=== PATIENT | female | born 1990 | race Caucasian/White ===

== ENCOUNTER 2017-03-31 21:07 | Emergency (ER) | payer SELFPAY ==
[2017-03-31 21:44] LABS: APPEARANCE,URINE SLIGHTLY-CLOUDY; BILIRUBIN,URINE NEGATIVE (NEGATIVE); GLUCOSE, URINE NEGATIVE (NEGATIVE); KETONES,URINE NEGATIVE (NEGATIVE); LEUKOCYTE ESTERASE,URINE NEGATIVE (NEGATIVE); NITRITE,URINE NEGATIVE (NEGATIVE); PROTEIN,URINE NEGATIVE (NEGATIVE); URINE SPECIFIC GRAVITY 1.024; UROBILINOGEN,URINE NEGATIVE mg/dL (<2.0)
--- NOTE | 2017-03-31 22:36 | ER Document Report ---
ED GI/ - General Chief Complaint: Urinary Problem Stated Complaint: ABDOMINAL PAIN Time Seen by Provider: 03/31/17 22:16 Notes: Patient is a 26-year-old female who comes emergency department for chief complaint of lower abdominal pain. Symptoms have been going on almost a week, they are worsening, she reports in addition to the pain that she has some pain in her mid lower back, not specifically worse on one side. She denies fever, she reports some nausea, she denies vomiting. She also reports some urinary hesitancy and occasional discomfort with urination. She reports a positive home test. She has irregular menstrual cycles. She denies hematuria, she denies history of kidney stone. Past medical history of pituitary adenoma, depression, chronic lower back pain, ectopic . TRAVEL OUTSIDE OF THE [place] IN LAST 30 DAYS: No - Related Data Allergies/Adverse Reactions: codeine Allergy (Verified 03/31/17 22:20) hydrocodone Allergy (Verified 03/31/17 22:20) hydromorphone [From Dilaudid] Allergy (Verified 03/31/17 22:20) morphine Allergy (Verified 03/31/17 22:20) oxycodone Allergy (Verified 03/31/17 22:20) Past Medical History - General Information source: Patient - Social History Smoking Status: Never Smoker Chew tobacco use (# tins/day): No Frequency of alcohol use: None Drug Abuse: None Lives with: Family Family History: Reviewed & Not Pertinent Patient has suicidal ideation: No Patient has homicidal ideation: No Endocrine Medical History: Reports: Other - Pituitary adenoma Renal/ Medical History: Denies: Hx Peritoneal Dialysis Psychiatric Medical History: Reports: Hx Depression - Immunizations Hx Diphtheria, Pertussis, Tetanus Vaccination: Yes Review of Systems - Review of Systems Constitutional: No symptoms reported EENT: No symptoms reported Cardiovascular: No symptoms reported Respiratory: No symptoms reported Gastrointestinal: See HPI Genitourinary: See HPI Female Genitourinary: See HPI Musculoskeletal: No symptoms reported Skin: No symptoms reported Hematologic/Lymphatic: No symptoms reported Neurological/Psychological: No symptoms reported Physical Exam - Vital signs Vitals: Temp Pulse Resp BP Pulse Ox 98.2 F 85 16 128/88 H 98 03/31/17 21:13 03/31/17 21:13 03/31/17 21:13 03/31/17 21:13 03/31/17 21:13 Interpretation: Normal - General General appearance: Appears well In distress: None - HEENT Head: Normocephalic, Atraumatic Eyes: Normal Conjunctiva: Normal Extraocular movements intact: Yes Eyelashes: Normal Pupils: PERRL Mouth/Lips: Normal Mucous membranes: Normal Pharynx: Normal Neck: Normal - Respiratory Respiratory status: No respiratory distress Chest status: Nontender Breath sounds: Normal Chest palpation: Normal - Cardiovascular Rhythm: Regular Heart sounds: Normal auscultation Murmur: No - Abdominal Inspection: Normal Distension: No distension Bowel sounds: Normal Tenderness: Nontender. No: Tender, Guarding Organomegaly: No organomegaly - Genitourinary External exam: Normal Speculum exam: Cervix closed, Vaginal discharge - Moderately large amount of vaginal discharge, whitish in color, there is erythema of the cervix but no lesions, no bleeding, no other abnormality noted - Back Back: Normal, Nontender. No: Tender, CVA tenderness - Extremities General upper extremity: Normal inspection, Nontender, Normal color, Normal ROM , Normal temperature General lower extremity: Normal inspection, Nontender, Normal color, Normal ROM , Normal temperature, Normal weight bearing. No: Nadira's sign - Neurological Neuro grossly intact: Yes Cognition: Normal Orientation: AAOx4 [place] Coma Scale Eye Opening: Spontaneous [place] Coma Scale Verbal: Oriented [place] Coma Scale Motor: Obeys Commands [place] Coma Scale Total: 15 Speech: Normal Motor strength normal: LUE, RUE, LLE, RLE Sensory: Normal - Psychological Associated symptoms: Normal affect, Normal mood - Skin Skin Temperature: Warm Skin Moisture: Dry Skin Color: Normal Course - Re-evaluation Re-evalutation: Patient's abdomen is actually very unremarkable, no flank tenderness noted on my exam, she is well-appearing, alert, her vital signs show no concerning abnormalities. Reviewed and shows no leukocytosis, chemistry unremarkable, urinalysis unremarkable. test is negative. Patient only has some white blood cells on wet mount, however on evaluation she had a moderately large amount of discharge and what appears to be some cervicitis. Bacterial vaginosis on wet mount. I discussed workup with patient. After discussion patient will be treated/covered for pelvic infection based on her exam and the white blood cells with no other indication of source, discussed primary care follow-up, discussed return precautions, patient states satisfaction and agreement - Vital Signs Vital signs: Temp Pulse Resp BP Pulse Ox 97.3 F 80 18 114/80 98 04/01/17 01:32 04/01/17 01:32 03/31/17 22:22 04/01/17 01:32 04/01/17 01:32 - Laboratory Result Diagrams: 03/31/17 23:56 03/31/17 22:49 Laboratory results interpreted by me: 03/31/17 23:56 Eosinophils % 6.8 H Absolute Eosinophils 0.7 H Discharge - Discharge Clinical Impression: Lower abdominal pain Condition: Stable Disposition: HOME, SELF-CARE Additional Instructions: Your workup indicates a pelvic infection, but no other abnormalities are noted. You have been treated for this tonight. Your urine is clean, your test is negative. Follow up with Primary Care. Return to the ED for concerning worsening symptoms - fever, severe pain, vomiting, etc.
[2017-03-31] MEDS ORDERED: DIPHENHYDRAMINE HCL 25 MG CAPSULE PO ONE (22:48)
[2017-03-31] MEDS ORDERED: ONDANSETRON 4 MG TAB.RAPDIS PO ONE (22:48)
[2017-03-31] MEDS ORDERED: HYDROCODONE/ACETAMINOPHEN 5-325 MG TABLET PO ONE (22:48)
[2017-03-31 23:10] LABS: ALANINE AMINOTRANSFERASE 42 U/L (9-52); ALBUMIN 4.2 g/dL (3.5-5.0); ALKALINE PHOSPHATASE 61 U/L (38-126); ANION GAP 13 (5-19); ASPARTATE AMINO TRANSFERASE 23 U/L (14-36); BILIRUBIN,DIRECT 0.3 mg/dL (0.0-0.4); BILIRUBIN,TOTAL 0.3 mg/dL (0.2-1.3); BLOOD UREA NITROGEN 15 mg/dL (7-20); CARBON DIOXIDE 24 mmol/L (22-30); CHLORIDE 106 mmol/L (98-107); CREATININE RESULT 0.77 mg/dL (0.52-1.25); GLUCOSE 101 mg/dL (75-110); POTASSIUM 4.2 mmol/L (3.6-5.0); SODIUM 142.6 mmol/L (137-145); TOTAL PROTEIN 7.6 g/dL (6.3-8.2)
[2017-04-01 00:04] LABS: ABSOLUTE BASOPHILS # (AUTO) 0.1 10^3/uL (0.0-0.2); ABSOLUTE EOSINOPHILS # (AUTO) 0.7 10^3/uL (0.0-0.6); ABSOLUTE LYMPHOCYTES (AUTO) 3.4 10^3/uL (0.5-4.7); ABSOLUTE MONOCYTES (AUTO) 0.7 10^3/uL (0.1-1.4); ABSOLUTE NEUT (AUTO) 5.3 10^3/uL (1.7-8.2); BASOPHILS % (AUTO) 0.9 % (0-2); EOSINOPHILS % (AUTO) 6.8 % (0-6); HEMATOCRIT 40.9 % (36.0-47.0); HEMOGLOBIN 13.5 g/dL (12.0-15.5); HGB HCT DIFFERENCE -0.4; LYMPHOCYTES % (AUTO) 33.6 % (13-45); MEAN CORPUSCULAR HEMOGLOBIN 27.8 pg (27.0-33.4); MEAN CORPUSCULAR HGB CONC 33.1 g/dL (32.0-36.0); MEAN CORPUSCULAR VOLUME 84 fl (80-97); MONOCYTES % (AUTO) 6.8 % (3-13); RED BLOOD COUNT 4.87 10^6/uL (3.72-5.28); RED CELL DISTRIBUTION WIDTH 13.4 % (11.5-14.0); SEGMENTED NEUTROPHILS % (AUTO) 51.9 % (42-78); WHITE BLOOD COUNT 10.2 10^3/uL (4.0-10.5)
[2017-04-01] MEDS ORDERED: AZITHROMYCIN 250 MG TABLET PO ONE (00:38)
[2017-04-01] MEDS ORDERED: CEFTRIAXONE INJ 250 MG VIAL IM ONE (00:39)
[2017-04-01] MEDS ORDERED: LIDOCAINE 1% INJ-PF (10 MG/ML) 30 ML SDV INJ ONE (00:39)
[2017-04-01 01:34] VITALS: BP 114/80
[2017-04-01 01:49] LABS: CHLAM PCR NOT DETECTED (NOT DETECT)
== END 2017-04-01 01:33 | disposition home or self-care (01) ==
LOC: ER 21:07
DX: R10.30 Lower abdominal pain, unspecified (principal); M54.5 Low back pain; Z88.6 Allergy status to analgesic agent; Z32.02 Encounter for pregnancy test, result negative
CPT/HCPCS: 99284; 96372; 36415; 87210; 85025; 81025; 80053; 81001; 87491; 87591; S0119; J3490; J0696

== ENCOUNTER 2017-04-07 10:42 | Emergency (ER) | payer SELFPAY ==
--- NOTE | 2017-04-07 11:27 | ER Document Report ---
ED Medical Screen (RME) - General Chief Complaint: Abdominal Pain Stated Complaint: ABDOMINAL PAIN/PAINFUL URINATION Time Seen by Provider: 04/07/17 11:24 Mode of Arrival: Wheelchair Information source: Patient Notes: This is a 26-year-old female presents to the emergency room with pelvic pain, whitish vaginal discharge. Patient states she was treated for a pelvic infection with ceftriaxone and azithromycin on March 31. She states she presents to the emergency room with worsening pain in the pelvic area. Her last normal menstrual period was January 31. She does have a history of an ectopic. Her medicines include Effexor, gabapentin (for chronic neck and low back pain) and the neuva ring. Past medical history: Spina bifida possible prior surgeries TRAVEL OUTSIDE OF THE [place] IN LAST 30 DAYS: No - Related Data Allergies/Adverse Reactions: codeine Allergy (Verified 04/07/17 10:47) hydrocodone Allergy (Verified 04/07/17 10:47) hydromorphone [From Dilaudid] Allergy (Verified 04/07/17 10:47) morphine Allergy (Verified 04/07/17 10:47) oxycodone Allergy (Verified 04/07/17 10:47) Past Medical History Renal/ Medical History: Denies: Hx Peritoneal Dialysis Psychiatric Medical History: Reports: Hx Depression - Immunizations Hx Diphtheria, Pertussis, Tetanus Vaccination: Yes Physical Exam - Vital signs Vitals: Temp Pulse Resp BP Pulse Ox 98.4 F 97 16 90/64 L 98 04/07/17 10:47 04/07/17 10:47 04/07/17 10:47 04/07/17 10:47 04/07/17 10:47 Course - Vital Signs Vital signs: Temp Pulse Resp BP Pulse Ox 98.4 F 97 16 90/64 L 98 04/07/17 10:47 04/07/17 10:47 04/07/17 10:47 04/07/17 10:47 04/07/17 10:47
[2017-04-07 12:01] LABS: APPEARANCE,URINE CLOUDY; BILIRUBIN,URINE NEGATIVE (NEGATIVE); GLUCOSE, URINE NEGATIVE (NEGATIVE); KETONES,URINE NEGATIVE (NEGATIVE); LEUKOCYTE ESTERASE,URINE SMALL (NEGATIVE); NITRITE,URINE NEGATIVE (NEGATIVE); PROTEIN,URINE NEGATIVE (NEGATIVE); URINE SPECIFIC GRAVITY 1.018; UROBILINOGEN,URINE NEGATIVE mg/dL (<2.0)
[2017-04-07] MEDS ORDERED: DIPHENHYDRAMINE HCL 50 MG/ML VIAL IV ONE (12:01)
[2017-04-07] MEDS ORDERED: FENTANYL CITRATE INJ/PF 100 MCG/2 ML AMPUL IV ONE (12:02)
--- NOTE | 2017-04-07 12:02 | ER Document Report ---
ED General - General Chief Complaint: Abdominal Pain Stated Complaint: ABDOMINAL PAIN/PAINFUL URINATION Time Seen by Provider: 04/07/17 11:24 Mode of Arrival: Wheelchair Notes: 26-year-old female with history of ectopic presents with lower abdominal pain left greater than right, constant, severe for over a week since she was initially seen here in the ED and diagnosed with PID. She was at that point treated with antibiotics and told to follow-up if her pain got worse. She states it is now worse and she is having trouble moving around. Her white vaginal discharge continues but there has been no bleeding. She has nausea but no vomiting and has had decreased oral intake. Also has dysuria. TRAVEL OUTSIDE OF THE [place] IN LAST 30 DAYS: No - Related Data Allergies/Adverse Reactions: codeine Allergy (Verified 04/07/17 10:47) hydrocodone Allergy (Verified 04/07/17 10:47) hydromorphone [From Dilaudid] Allergy (Verified 04/07/17 10:47) morphine Allergy (Verified 04/07/17 10:47) oxycodone Allergy (Verified 04/07/17 10:47) Past Medical History - General Information source: Patient - Social History Smoking Status: Unknown if Ever Smoked Family History: Reviewed & Not Pertinent Patient has suicidal ideation: No Patient has homicidal ideation: No Renal/ Medical History: Denies: Hx Peritoneal Dialysis Psychiatric Medical History: Reports: Hx Depression - Immunizations Hx Diphtheria, Pertussis, Tetanus Vaccination: Yes Review of Systems - Review of Systems Notes: REVIEW OF SYSTEMS GEN: Denies fever, chills, weight loss ENT: Denies sore throat, nasal discharge, ear pain EYES: Denies blurry vision, eye pain, discharge CV: Denies chest pain, palpitations, edema RESP: Denies cough, shortness of breath, wheezing GI: Pain and nausea a MSK: Denies joint pain/swelling, edema, SKIN: Denies rash, skin lesions LYMPH: Denies swollen glands/lymph nodes NEURO: Denies headache, focal weakness or numbness, dizziness PSYCH: Denies depression, suicidal or homicidal ideation PHYSICAL EXAMINATION General: No acute distress, well-nourished Head: Atraumatic, normocephalic ENT: Mouth normal, oropharynx moist, no exudates or tonsillar enlargement Eyes: Conjunctiva normal, pupils equal, lids normal Neck: No JVD, supple, no guarding. Posterior surgical scar well-healed. CVS: Normal rate, regular rhythm, no murmurs Resp: No resp distress, equal and normal breath sounds bilaterally GI: Nondistended, soft, lower abdominal tenderness with guarding. Ext: No deformities, no edema, normal range of motion in upper and lower ext Back: No CVA or midline TTP Skin: No rash, warm Lymphatic: No lymphadeopathy noted Neuro: Awake, alert. Face symmetric. GCS 15. Physical Exam - Vital signs Vitals: Temp Pulse Resp BP Pulse Ox 98.4 F 97 16 90/64 L 98 04/07/17 10:47 04/07/17 10:47 04/07/17 10:47 04/07/17 10:47 04/07/17 10:47 Course - Re-evaluation Re-evalutation: 04/07/17 12:00 26-year-old female presents with worsening pelvic pain for 1 week in the setting of diagnosis of pelvic inflammatory disease. Possibilities include inadequately treated PID, worsening PID, tubo-ovarian abscess or appendicitis. We will get labs, get pain medication, UAs cooking already, and ultrasound has been ordered at triage which I think is appropriate. 04/07/17 13:31 Reevaluated at 1:30 PM. Pain is better. Her labs are absolutely normal including a white blood cell count urinalysis. Her ultrasound shows a tiny ovarian cyst but no tubo-ovarian abscess or fluid collections. Given the fact that her tenderness is more left-sided and midline and right-sided, and her white count was normal after a week of pain I do not suspect appendicitis. We had a long discussion using shared decision making about doing a CAT scan, versus giving her IV antibiotics here at home with a longer course of doxy for PID and she elected to do the latter which I think is very reasonable. Order Toradol ceftriaxone and doxy here will discharge with 10 days of doxycycline, and NSAID and she will follow-up with primary care and [facility]. 04/07/17 13:48 Patient's pain is improved. I spoke with Dr. Coburn with [facility] by phone who agrees my plan recommended adding Flagyl to her outpatient regimen which I did, and which will call her for outpatient follow-up. Patient is okay with this plan. - Vital Signs Vital signs: Temp Pulse Resp BP Pulse Ox 98.4 F 97 16 90/64 L 98 04/07/17 10:47 04/07/17 10:47 04/07/17 10:47 04/07/17 10:47 04/07/17 10:47 - Laboratory Result Diagrams: 04/07/17 12:05 04/07/17 12:05 Laboratory results interpreted by me: 04/07/17 11:35 Ur Leukocyte Esterase SMALL H - Diagnostic Test Radiology reviewed: Image reviewed, Reports reviewed Discharge - Discharge Clinical Impression: Pelvic inflammatory disease Condition: Good Disposition: HOME, SELF-CARE Instructions: Pelvic Inflammatory Disease ([facility]) Additional Instructions: As we discussed, I think your symptoms are less likely due to appendicitis and more likely due to partially treated pelvic inflammatory disease. Together we discussed the risks and benefits and elected against having a CAT scan which I think is reasonable. We gave him antibiotics here and will discharge you on antibiotics as well. Dr. Coburn, from [facility], agreed to see what her clinic in the next several days and her office will call you for follow-up. Prescriptions: Doxycycline Hyclate 100 mg PO BID 14 Days Metronidazole [Flagyl 500 mg Tablet] 500 mg PO Q6H 14 Days Naproxen 250 mg PO BID PRN #60 tablet PRN Reason:
[2017-04-07] MEDS: NORMAL SALINE 1000 ML 1,000 ML IV PRN ×2 (12:18→13:55)
[2017-04-07 12:24] LABS: ABSOLUTE BASOPHILS # (AUTO) 0.1 10^3/uL (0.0-0.2); ABSOLUTE EOSINOPHILS # (AUTO) 0.5 10^3/uL (0.0-0.6); ABSOLUTE LYMPHOCYTES (AUTO) 2.1 10^3/uL (0.5-4.7); ABSOLUTE MONOCYTES (AUTO) 0.5 10^3/uL (0.1-1.4); ABSOLUTE NEUT (AUTO) 5.5 10^3/uL (1.7-8.2); BASOPHILS % (AUTO) 0.7 % (0-2); EOSINOPHILS % (AUTO) 5.7 % (0-6); HEMATOCRIT 38.5 % (36.0-47.0); HEMOGLOBIN 12.8 g/dL (12.0-15.5); HGB HCT DIFFERENCE -0.1; LYMPHOCYTES % (AUTO) 24.4 % (13-45); MEAN CORPUSCULAR HEMOGLOBIN 27.8 pg (27.0-33.4); MEAN CORPUSCULAR HGB CONC 33.3 g/dL (32.0-36.0); MEAN CORPUSCULAR VOLUME 83 fl (80-97); MONOCYTES % (AUTO) 5.8 % (3-13); RED BLOOD COUNT 4.62 10^6/uL (3.72-5.28); RED CELL DISTRIBUTION WIDTH 13.2 % (11.5-14.0); SEGMENTED NEUTROPHILS % (AUTO) 63.4 % (42-78); WHITE BLOOD COUNT 8.7 10^3/uL (4.0-10.5)
--- NOTE | 2017-04-07 13:24 | RADIOLOGY REPORT (SQ) ---
EXAM DESCRIPTION: U/S NON OB PEL TV W/DOPPLER COMPLETED DATE/TIME: 04/07/2017 12:58 pm REASON FOR STUDY: pelvic pain COMPARISON: None. TECHNIQUE: Dynamic and static grayscale images acquired of the pelvis via transvaginal approach and recorded on PACS. Additional selected color Doppler and spectral images recorded. LIMITATIONS: None. FINDINGS: UTERUS: Contour normal. No mass. ENDOMETRIAL STRIPE: There is some thickening of the endometrial stripe presumably related to the phi ent's time in the menstrual cycle. CERVIX: No nabothian cysts. RIGHT OVARY: Tiny complex cyst is identified measuring 1.3 x 1.0 x 0.7 cm in diameters. RIGHT OVARY DOPPLER: Normal arterial vascular flow without evidence for torsion. LEFT OVARY: No abnormal masses. LEFT OVARY DOPPLER: Normal arterial vascular flow without evidence for torsion. FREE FLUID: None noted. OTHER: No other significant finding. MEASUREMENTS: UTERUS: 8.3 x 5.2 x 4.2 cm ENDOMETRIAL STRIPE: 22 mm RIGHT OVARY: 2.8 x 2.8 x 2.0 cm LEFT OVARY: 2.5 x 1.9 x 2.4 cm IMPRESSION: Tiny complex cyst in the right ovary. No other significant pelvic abnormalities were id entified. Other findings as noted above TECHNICAL DOCUMENTATION: JOB ID: [id number] [employer]- All Rights Reserved
[2017-04-07] MEDS ORDERED: CEFTRIAXONE INJ 1000 MG VIAL IV ONE (13:30)
[2017-04-07] MEDS ORDERED: DOXYCYCLINE HYCLATE 100 MG TABLET PO ONE (13:30)
[2017-04-07] MEDS ORDERED: KETOROLAC TROMETHAMINE INJ/PF 30 MG/1 ML SDV IV ONE (13:30)
[2017-04-07 14:48] VITALS: BP 118/68
== END 2017-04-07 14:50 | disposition home or self-care (01) ==
LOC: ER 10:42
DX: N73.9 Female pelvic inflammatory disease, unspecified (principal); R10.2 Pelvic and perineal pain; R30.0 Dysuria; R11.0 Nausea; Z88.5 Allergy status to narcotic agent; N83.201 Unspecified ovarian cyst, right side
CPT/HCPCS: 99284; 96361; 96375; 96365; 36415; 85025; 81001; 76830; 93976; J1200; J3010; J1885; J0696; J7030

== ENCOUNTER 2017-05-23 00:36 | Emergency (ER) | payer SELFPAY ==
[2017-05-23] MEDS ORDERED: MORPHINE SULFATE 10 MG/ML INJ IV ONE (01:33)
[2017-05-23] MEDS ORDERED: DIPHENHYDRAMINE HCL 50 MG/ML VIAL IV ONE (01:34)
--- NOTE | 2017-05-23 01:35 | ER Document Report ---
ED Fall - General Chief Complaint: Fall Injury Stated Complaint: FALL/NECK AND BACK PAIN Time Seen by Provider: 05/23/17 01:22 Notes: Patient is a 26-year-old female that comes by EMS for chief complaint of fall, she states she slipped when she got out of the shower, fell backwards, hit her head and neck, also hit her left forearm on the towel rack, landed on her lower back. She denies passing out, she denies vomiting, she denies focal numbness or weakness, she denies incontinence. Past medical history of spina bifida, GLUE COOK shunt. TRAVEL OUTSIDE OF THE [place] IN LAST 30 DAYS: No - Related data Allergies/Adverse Reactions: codeine Allergy (Verified 04/07/17 10:47) hydrocodone Allergy (Verified 04/07/17 10:47) hydromorphone [From Dilaudid] Allergy (Verified 04/07/17 10:47) morphine Allergy (Verified 04/07/17 10:47) oxycodone Allergy (Verified 04/07/17 10:47) Past Medical History - General Information source: Patient, Relative - - Social History Smoking Status: Never Smoker Frequency of alcohol use: None Drug Abuse: None Lives with: Family Family History: Reviewed & Not Pertinent Neurological Medical History: Reports: Other - GLUE COOK shunt placement, spina bifida Renal/ Medical History: Denies: Hx Peritoneal Dialysis Psychiatric Medical History: Reports: Hx Depression Past Surgical History: Reports: Hx Neurologic Surgery - GLUE COOK shunt placement - Immunizations Hx Diphtheria, Pertussis, Tetanus Vaccination: Yes Review of Systems - Review of Systems Constitutional: No symptoms reported EENT: No symptoms reported Cardiovascular: No symptoms reported Respiratory: No symptoms reported Gastrointestinal: No symptoms reported Genitourinary: No symptoms reported Female Genitourinary: No symptoms reported Musculoskeletal: See HPI Skin: No symptoms reported Hematologic/Lymphatic: No symptoms reported Neurological/Psychological: See HPI Physical Exam - Vital signs Vitals: Temp Pulse Resp BP Pulse Ox 98.5 F 72 20 125/86 H 98 05/23/17 00:56 05/23/17 00:56 05/23/17 00:56 05/23/17 00:56 05/23/17 00:56 Interpretation: Normal - General General appearance: Alert, Anxious In distress: None - Patient appears anxious but that she has not appear to be in any distress, she is alert, she is oriented - HEENT Head: Normocephalic, Atraumatic - Patient indicates the area on her right pentecostal where she states she struck her head, no hematoma or signs of injury to the area Eyes: Normal Pupils: PERRL Ears: Normal Sinus: Normal Nasal: Normal Mouth/Lips: Normal Mucous membranes: Normal Pharynx: Normal Neck: Normal - Respiratory Respiratory status: No respiratory distress Chest status: Nontender Breath sounds: Normal Chest palpation: Normal - Cardiovascular Rhythm: Regular. No: Tachycardia Heart sounds: Normal auscultation, S1 appreciated, S2 appreciated Murmur: No - Abdominal Inspection: Normal Distension: No distension Bowel sounds: Normal Tenderness: Nontender. No: Tender, Guarding Organomegaly: No organomegaly - Back Back: Tender - Patient complains of palpation of the lumbar area generally, no bruises noted, normal thoracic examination, patient also complains of pain generally over the cervical area, again no signs of trauma. No saddle anesthesia, moves all extremities and full range of motion, normal distal neurovascular exam - Extremities General upper extremity: Other - Pain generally over the left anterior forearm, nonspecific, no ecchymosis, swelling, normal distal neurovascular exam, normal wrist, elbow exam General lower extremity: Normal inspection, Nontender, Normal strength, Normal temperature. No: Tender - Neurological Neuro grossly intact: Yes Cognition: Normal Orientation: AAOx4 [place] Coma Scale Eye Opening: Spontaneous [place] Coma Scale Verbal: Oriented [place] Coma Scale Motor: Obeys Commands [place] Coma Scale Total: 15 Speech: Normal Motor strength normal: LUE, RUE, LLE, RLE Sensory: Normal - Psychological Associated symptoms: Anxious - Skin Skin Temperature: Warm Skin Moisture: Dry Skin Color: Normal Course - Re-evaluation Re-evalutation: Patient and has been very concerned about her injuries and her history. She has a normal neurological exam with no deficits, no loss of consciousness, no vomiting. They state she fell very hard, she is very concerned about hitting the side of her head on the same side of the shunt. After discussion and persistent worries, CAT scan of the head, neck were performed, x-rays also performed. CAT scan shows no acute intracranial abnormality, shows suspected muscle spasm of the neck, GLUE COOK shunt partially visualized with no obvious abnormalities. No acute findings. Discussed with Dr. Acevedo. Discussed with patient and her significant other in detail, they had many questions, I did offer to contact their neurologist, they declined. Patient will be treated with medications outpatient for her injury, discussed head injury precautions, postconcussive syndrome, return precautions. They state understanding and agreement. - Vital Signs Vital signs: Temp Pulse Resp BP Pulse Ox 97.9 F 63 18 103/55 L 96 05/23/17 03:20 05/23/17 03:20 05/23/17 03:20 05/23/17 03:20 05/23/17 03:20 Discharge - Discharge Clinical Impression: Neck pain, Left forearm pain Fall Qualifiers: Encounter type: initial encounter Qualified Code(s): W19.XXXA - Unspecified fall, initial encounter Head injury Qualifiers: Encounter type: initial encounter Qualified Code(s): S09.90XA - Unspecified injury of head, initial encounter Lower back pain Qualifiers: Chronicity: acute Back pain laterality: left Sciatica presence: without sciatica Qualified Code(s): M54.5 - Low back pain Condition: Stable Disposition: HOME, SELF-CARE Additional Instructions: No fractures, dislocations, bleeding, contusion, or other acute abnormality is seen on imaging. Neurological exam is normal. You will likely be very sore for the next few days, You will also likely have some postconcussive headaches. Follow-up with your provider, take your current medications, take the [place] only if needed for breakthrough pain, take Robaxin muscle relaxer, apply heat to your neck and rest. Return to emergency department for any concerning symptoms, see additional instructions below. Prescriptions: Hydrocodone/Acetaminophen [[place] 5-325 mg Tablet] 1 tab PO Q6 PRN #10 tablet PRN Reason: Methocarbamol [Robaxin] 500 mg PO BID PRN #14 tablet PRN Reason:
--- NOTE | 2017-05-23 02:25 | RADIOLOGY REPORT (SQ) ---
EXAM DESCRIPTION: CT HEAD WITHOUT COMPLETED DATE/TIME: 05/23/2017 2:03 am REASON FOR STUDY: fall, head injury COMPARISON: None. TECHNIQUE: Axial images acquired through the brain without intravenous contrast. Images reviewed wi th bone, brain and subdural windows. Images stored on PACS. All CT scanners at this facility use dose modulation, iterative reconstruction, and/or weight based d osing when appropriate to reduce radiation dose to as low as reasonably achievable (ALARA). [facility]: Dose Right [facility]: CareDose [facility]: Dose Right [facility]: Teradose 4D [facility]: [employer] RADIATION DOSE: Up-to-date CT equipment and radiation dose reduction techniques were employed. CTDIv ol: 64.6 mGy. DLP: 1163 mGy-cm. mGy. LIMITATIONS: None. FINDINGS: VENTRICLES: Small ventricles, right smaller than left with ventriculostomy tube tip in the frontal horn of the right lateral ventricle. CEREBRUM: No masses. No hemorrhage. No midline shift. Normal gracia/white matter differentiation. N o evidence for acute infarction. CEREBELLUM: No masses. No hemorrhage. No alteration of density. No evidence for acute infarction. EXTRAAXIAL SPACES: No fluid collections. No masses. ORBITS AND GLOBE: No intra- or extraconal masses. Normal contour of globe without masses. CALVARIUM: No fracture. PARANASAL SINUSES: No fluid or mucosal thickening. SOFT TISSUES: No mass or hematoma. OTHER: No other significant finding. IMPRESSION: No acute findings. Right ventriculostomy tube. TECHNICAL DOCUMENTATION: JOB ID: [id number] Quality ID # [id number]: Final reports with documentation of one or more dose reduction techniques (e.g., Au tomated exposure control, adjustment of the mA and/or kV according to patient size, use of iterative reconstruction technique) 2010 [employer]- All Rights Reserved
--- NOTE | 2017-05-23 02:32 | RADIOLOGY REPORT (SQ) ---
EXAM DESCRIPTION: CT CERVICAL SPINE WITHOUT COMPLETED DATE/TIME: 05/23/2017 2:03 am REASON FOR STUDY: fall, head injury COMPARISON: None. TECHNIQUE: Axial images acquired through the cervical spine without intravenous contrast. Images re viewed with lung, soft tissue and bone windows. Reconstructed coronal and sagittal MPR images review ed. Images stored on PACS. All CT scanners at this facility use dose modulation, iterative reconstruction, and/or weight based d osing when appropriate to reduce radiation dose to as low as reasonably achievable (ALARA). [facility]: Dose Right [facility]: CareDose [facility]: Dose Right [facility]: Teradose 4D [facility]: Smart [employer] RADIATION DOSE: Up-to-date CT equipment and radiation dose reduction techniques were employed. CTDIv ol: 22.2 mGy. DLP: 513 mGy-cm. mGy. LIMITATIONS: None. FINDINGS: ALIGNMENT: Anatomic. Minimal nonspecific reversed lordotic curvature. MINERALIZATION: Normal. VERTEBRAL BODIES: No fractures or dislocation. DISCS: Mild C5-C6 disc desiccation. FACETS, LATERAL MASSES, POSTERIOR ELEMENTS: Partial hypoplasia -aplasia of the posterior C1 ring, hyp oplasia of the posterior C2 ring, a small chronic developmental fragmentation of the posterior elemen ts at the C2-C3 level. Small chronic posterior nuchal ligamentous calcification at the C4 level. Mi ld left C6 bony foraminal stenosis. HARDWARE: None in the spine. VISUALIZED RIBS: No fractures. LUNG APICES AND SOFT TISSUES: No significant or acute findings. OTHER: No other significant finding. IMPRESSION: Mild nonspecific reversed lordotic curvature of the cervical spine ; cannot exclude soft tissue injury or spasm. 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 TECHNICAL DOCUMENTATION: JOB ID: [id number] Quality ID # [id number]: Final reports with documentation of one or more dose reduction techniques (e.g., Au tomated exposure control, adjustment of the mA and/or kV according to patient size, use of iterative reconstruction technique) 2010 [employer]- All Rights Reserved
--- NOTE | 2017-05-23 02:50 | RADIOLOGY REPORT (SQ) ---
EXAM DESCRIPTION: FOREARM LEFT COMPLETED DATE/TIME: 05/23/2017 2:15 am REASON FOR STUDY: fall, pain COMPARISON: None. NUMBER OF VIEWS: Two views. TECHNIQUE: Two radiographic images acquired of the left forearm, including elbow and wrist in at farheen st one projection. LIMITATIONS: None. FINDINGS: MINERALIZATION: Normal. BONES: No acute fracture. No worrisome bone lesions. SOFT TISSUES: No obvious swelling or foreign body. OTHER: No other significant finding. IMPRESSION: NEGATIVE STUDY OF THE LEFT FOREARM. NO RADIOGRAPHIC EVIDENCE OF ACUTE INJURY. TECHNICAL DOCUMENTATION: JOB ID: [id number] [employer]- All Rights Reserved
--- NOTE | 2017-05-23 02:54 | RADIOLOGY REPORT (SQ) ---
EXAM DESCRIPTION: L SPINE WHOLE COMPLETED DATE/TIME: 05/23/2017 2:15 am REASON FOR STUDY: fall, pain COMPARISON: None. NUMBER OF VIEWS: Five views including obliques. TECHNIQUE: AP, lateral, oblique, and sacral radiographic images acquired of the lumbar spine. LIMITATIONS: None. FINDINGS: MINERALIZATION: Normal. SEGMENTATION: Normal. No transitional anatomy. ALIGNMENT: Normal. VERTEBRAE: Maintained height. No fracture or worrisome bone lesion. DISCS: Preserved height. No significant osteophytes or end plate irregularity. POSTERIOR ELEMENTS: Pedicles and facets are intact. No pars defect or posterior arch defects. HARDWARE: None in the spine. PARASPINAL SOFT TISSUES: Normal. PELVIS: Intact as visualized. No fractures or worrisome bone lesions. SI joints intact. OTHER: Likely ventriculoperitoneal shunt partially imaged coursing inferiorly off the image. IMPRESSION: NORMAL 5 VIEW LUMBAR SPINE. Ventriculoperitoneal shunt. TECHNICAL DOCUMENTATION: JOB ID: [id number] [employer]- All Rights Reserved
[2017-05-23 03:20] VITALS: BP 103/55
== END 2017-05-23 03:30 | disposition home or self-care (01) ==
LOC: ER 00:36
DX: S09.90XA Unspecified injury of head, initial encounter (principal); M79.632 Pain in left forearm; M54.2 Cervicalgia; M54.5 Low back pain; W01.198A Fall on same level from slipping, tripping and stumbling with subsequent striking against other object, initial encounter; Y93.89 Activity, other specified; Y92.002 Bathroom of unspecified non-institutional (private) residence as the place of occurrence of the external cause; Q05.9 Spina bifida, unspecified; Z98.2 Presence of cerebrospinal fluid drainage device; Z88.5 Allergy status to narcotic agent
CPT/HCPCS: 99284; 96374; 96375; 73090; 72110; 70450; 72125; J1200; J2270

== ENCOUNTER 2017-06-16 15:10 | Emergency (ER) | payer MEDICAID ==
--- NOTE | 2017-06-16 16:26 | ER Document Report ---
ED Syncope and Near Syncope - General Information source: Patient TRAVEL OUTSIDE OF THE U.S. IN LAST 30 DAYS: No - HPI Patient complains to provider of: Fainting Symptoms prior to episode: Dizziness Current symptoms: Other - see above <JOSE MENDES - Last Filed: 06/17/17 00:11> <ANNE-MARIE BONILLA - Last Filed: 06/17/17 00:13> - General Chief Complaint: Syncope Stated Complaint: SYNCOPE FALL Time Seen by Provider: 06/16/17 15:28 Notes: Patient is a 26 year old female who presents to the ED following a syncopal episode. Patient was in the shower, she states she felt dizzy, like the room was spinning and her ears were ringing but the symptoms went away. She then turned around to grab something and then remembers waking up in the tub. She heard her daughter asking if she was okay, told her to get the neighbor for help and was beginning to call EMS when she had another syncopal episode and when she woke up EMS was there. While in the ED patients arnaldo states that she had an additional syncopal episode that lasted 2-3 minutes where she stopped breathing for 30 seconds. Patient came too, had clear speech and was talking to the finance and then was reported to go unconscious again and when she woke up the 2nd time was repeating what she had just said. Arnaldo reports she was cyanotic at that time. JESS Alvarenga went to check on the patient and with a sternal rub, patient woke up. She was neurologically intact, there was no hypoxia or cyanosis noted. Patient has been complaining of nausea for the past few days but denies abdominal pain stating she has had some gas. Patient has a hx of spina bifida, ORTHOTIC/PROSTHETIC PRACTITIONER shunt (placed 12 years ago and [facility] in [place]), Prolactinoma(on Cabergoline). Patient has also been having some headaches with spotty vision for the past week as well, she has been taking Ibuprofen for the headaches. Patient is complaining of neck pain, right shoulder pain and right hip pain from the fall. (JOSE MENDES) - Related Data Allergies/Adverse Reactions: codeine Allergy (Verified 06/16/17 15:43) hydrocodone Allergy (Verified 06/16/17 15:43) hydromorphone [From Dilaudid] Allergy (Verified 06/16/17 15:43) latex Allergy (Verified 06/16/17 15:47) morphine Allergy (Verified 06/16/17 15:43) oxycodone Allergy (Verified 06/16/17 15:43) Past Medical History - General Information source: Patient - Social History Smoking Status: Never Smoker Frequency of alcohol use: None Drug Abuse: None Family History: Reviewed & Not Pertinent Patient has suicidal ideation: No Patient has homicidal ideation: No Neurological Medical History: Reports: Other - Spina Bifida,hydrocephalus Endocrine Medical History: Reports: Other - prolactinoma Renal/ Medical History: Denies: Hx Peritoneal Dialysis Psychiatric Medical History: Reports: Hx Anxiety, Hx Depression, Hx Post Traumatic Stress Disorder Past Surgical History: Reports: Hx Neurologic Surgery - ORTHOTIC/PROSTHETIC PRACTITIONER shunt placement - Immunizations Hx Diphtheria, Pertussis, Tetanus Vaccination: Yes <JOSE MENDES - Last Filed: 06/17/17 00:11> Review of Systems - Review of Systems Constitutional: No symptoms reported EENT: No symptoms reported, Blurred vision, Other - ears ringing Cardiovascular: See HPI, Syncope, Dizziness Respiratory: No symptoms reported Gastrointestinal: See HPI, Nausea. denies: Abdominal pain Genitourinary: No symptoms reported Female Genitourinary: No symptoms reported Musculoskeletal: See HPI, Joint pain - right hip, right shoulder, Neck pain Skin: No symptoms reported Hematologic/Lymphatic: No symptoms reported Neurological/Psychological: See HPI, Lost consciousness, Headaches <JOSE MENDES - Last Filed: 06/17/17 00:11> Physical Exam <JOSE MENDES - Last Filed: 06/17/17 00:11> <ANNE-MARIE BONILLA - Last Filed: 06/17/17 00:13> - Vital signs Vitals: Temp Pulse Resp BP Pulse Ox 98.5 F 92 20 106/84 98 06/16/17 15:23 06/16/17 15:23 06/16/17 15:23 06/16/17 15:23 06/16/17 15:23 - Notes Notes: GENERAL: Alert, interacts well. HEAD: Erythema over where ORTHOTIC/PROSTHETIC PRACTITIONER shunt inserts on right side of her head, consistent with falling on this area. Tenderness along entire path of ORTHOTIC/PROSTHETIC PRACTITIONER shunt, no erythema. EYES: Pupils equal, round, and reactive to light. Extraocular movements intact. ENT: Oral mucosa moist, tongue midline. NECK: Patient in C collar. LUNGS: Clear to auscultation bilaterally, no wheezes, rales, or rhonchi. No respiratory distress. HEART: Regular rate and rhythm. No murmurs, gallops, or rubs. ABDOMEN: Soft, non-tender. Non-distended. Bowel sounds present in all 4 quadrants. EXTREMITIES: Right lower extremity is slightly shorter than the left. Tender over right illiac crest and right greater trochanter. No edema, radial and dorsalis pedis pulses 2/4 bilaterally. Right knee was frog legged, was able to straightened. No cyanosis. NEUROLOGICAL: Alert and oriented x3. Normal speech. PSYCH: Normal affect, normal mood. SKIN: Warm, dry, normal turgor. abrasion and erythema to right hip area over greater trochanter. Surgical scars on bilateral knees. (JOSE MENDES) Course - Laboratory Result Diagrams: 06/16/17 16:55 06/16/17 16:55 <JOSE MENDES - Last Filed: 06/17/17 00:11> - Laboratory Result Diagrams: 06/16/17 16:55 06/16/17 16:55 <ANNE-MARIE BONILLA - Last Filed: 06/17/17 00:13> - Re-evaluation Re-evalutation: 06/16/17 17:39 JESS Alvarenga was alerted that patient had another episode of becoming unconscious. By the time she went immediately into the room, the patient was awake, alert with stable vital signs. (JOSE MENDES) 06/16/17 22:14 CBC unremarkable, CMP unremarkable, test negative, serum alcohol undetectable, CT scan of the head was ordered given the fact that she feels like she landed on her shunt, no injury was noted to the hardware, there was no evidence of hydrocephalus. Patient's symptoms are not consistent with acute ultrasound obstruction or disruption. Given the multiple syncopal episodes patient did have a d-dimer ordered and this was found to be elevated, CT angiogram of the chest was ordered and reveals no evidence of pulmonary embolism but there is small, nonspecific pericardial effusion. EKG is nonischemic. Fianc in the room states that the patient has stopped breathing multiple times and that he thinks she seems cyanotic, patient has never had hypoxia on the monitor, nursing is checked on her every time that he states she has passed out and stopped breathing and they have found that if you touch her, talk to her or shake her she wakes right up and starts breathing again, never noted any cyanosis nor has there been any hypoxia or cardiac irregularity on the monitor during these episodes. This appears more consistent with sleep apnea than true respiratory arrest. Discussed this with fiance and patient and they both state that she snores a great deal and that sometimes she will seem to stop breathing at night and if he shakes her orals her over she starts breathing again. We discussed in depth the need for a sleep study. At this point patient will be discharged to home. There is no evidence of any injury beyond contusions and I do not find any high risk etiologies for her syncopal episodes. 06/17/17 00:12 Despite patient's complaints that she is tender everywhere that her ORTHOTIC/PROSTHETIC PRACTITIONER shunt is located when I palpate away from the ORTHOTIC/PROSTHETIC PRACTITIONER shunt she states that it is tender there and when he repalpated over top of the ORTHOTIC/PROSTHETIC PRACTITIONER shunt liter without telling her that is when I am touching she no longer complains of tenderness. I see no indication of shunt infection. (ANNE-MARIE BONILLA) - Vital Signs Vital signs: Temp Pulse Resp BP Pulse Ox 97.5 F 92 19 103/75 95 06/16/17 22:25 06/16/17 15:23 06/16/17 22:01 06/16/17 22:00 06/16/17 22:01 - Laboratory Laboratory results interpreted by me: 06/16/17 06/16/17 16:55 16:55 Eosinophils % 6.1 H D-Dimer 1.18 H - EKG Interpretation by Me Additional EKG results interpreted by me: 06/16/17 22:16 EKG shows sinus rhythm at a rate of 78, normal axis, normal intervals, no ST segment elevations or depressions, no T-wave inversions per my interpretation. ( ANNE-MARIE BONILLA) Discharge <JOSE MENDES - Last Filed: 06/17/17 00:11> <ANNE-MARIE BONILLA - Last Filed: 06/17/17 00:13> - Discharge Clinical Impression: Syncope and collapse Contusion of right hip Qualifiers: Encounter type: initial encounter Qualified Code(s): S70.01XA - Contusion of right hip, initial encounter Condition: Stable Disposition: HOME, SELF-CARE Additional Instructions: Syncopal Episode Syncope (fainting or near-fainting) can occur from many different health problems. Or it can be a simple fainting spell requiring no treatment. It is safe for you to go home, but further evaluation will likely be necessary. Your work-up may include tests for internal bleeding, heart disease, medication problems, or near-strokes. Tests are not always required, however, depending on the nature of your problem. The warning signs of an impending faint include: dizziness, lightheadedness , nausea, hot flashes, tingling, and weakness. If this happens, lay down and put your feet up, then wait until all of these symptoms have passed before standing up again. If these episodes become recurrent, or if you develop chest pain, heart palpitations, mental confusion, blurred vision, or headache, then you should call the physician, or go to the emergency room. Your episodes in the emergency department today appear consistent with obstructive sleep apnea. I recommend you follow-up with either a director of operations support or a outsole cementer or a neurologist who can do a sleep study. I have given you the names of a few doctors you may see. I also gave you the name of the medical doctor control technician today Dr. Linda Burgos to follow-up with as an outpatient. Please return to the emergency department immediately if you cannot wake her by shaking her or talking to her. Forms: Parent Work Note Referrals: DEVYN BURGOS MD [ACTIVE STAFF] - Follow up as needed JOI COLMENARES MD [ACTIVE STAFF] - Follow up as needed AYESHA FREY MD [ACTIVE STAFF] - Follow up as needed Scribe Attestation: 06/17/17 00:13 I personally performed the services described in the documentation, reviewed and edited the documentation which was dictated to the scribe in my presence, and it accurately records my words and actions. (ANNE-MARIE BONILLA) Scribe Documentation - Scribe Written by Scribe:: zoila Herring, 06/16/2017, 0935 acting as scribe for :: Florencio <JOSE MENDES - Last Filed: 06/17/17 00:11>
[2017-06-16 17:13] LABS: ABSOLUTE BASOPHILS # (AUTO) 0.1 10^3/uL (0.0-0.2); ABSOLUTE EOSINOPHILS # (AUTO) 0.5 10^3/uL (0.0-0.6); ABSOLUTE LYMPHOCYTES (AUTO) 2.5 10^3/uL (0.5-4.7); ABSOLUTE MONOCYTES (AUTO) 0.6 10^3/uL (0.1-1.4); BASOPHILS % (AUTO) 0.6 % (0-2); EOSINOPHILS % (AUTO) 6.1 % (0-6); HEMATOCRIT 38.1 % (36.0-47.0); HEMOGLOBIN 13.3 g/dL (12.0-15.5); HGB HCT DIFFERENCE 1.8; LYMPHOCYTES % (AUTO) 29.1 % (13-45); MEAN CORPUSCULAR HEMOGLOBIN 28.8 pg (27.0-33.4); MEAN CORPUSCULAR HGB CONC 34.9 g/dL (32.0-36.0); MEAN CORPUSCULAR VOLUME 82 fl (80-97); MONOCYTES % (AUTO) 6.7 % (3-13); RED BLOOD COUNT 4.62 10^6/uL (3.72-5.28); RED CELL DISTRIBUTION WIDTH 13.2 % (11.5-14.0); SEGMENTED NEUTROPHILS % (AUTO) 57.5 % (42-78); WHITE BLOOD COUNT 8.7 10^3/uL (4.0-10.5)
[2017-06-16 17:32] LABS: ALANINE AMINOTRANSFERASE 37 U/L (9-52); ALBUMIN 4.4 g/dL (3.5-5.0); ALKALINE PHOSPHATASE 58 U/L (38-126); ANION GAP 11 (5-19); ASPARTATE AMINO TRANSFERASE 23 U/L (14-36); BILIRUBIN,DIRECT 0.4 mg/dL (0.0-0.4); BILIRUBIN,TOTAL 0.7 mg/dL (0.2-1.3); BLOOD UREA NITROGEN 15 mg/dL (7-20); CALCIUM 10.1 mg/dL (8.4-10.2); CARBON DIOXIDE 24 mmol/L (22-30); CHLORIDE 106 mmol/L (98-107); CREATINE KINASE 50 U/L (30-135); CREATININE RESULT 0.79 mg/dL (0.52-1.25); GLUCOSE 88 mg/dL (75-110); POTASSIUM 4.3 mmol/L (3.6-5.0); TOTAL PROTEIN 7.5 g/dL (6.3-8.2)
[2017-06-16 17:34] LABS: ALCOHOL < 10 mg/dL (NONE DETECTED)
--- NOTE | 2017-06-16 17:38 | RADIOLOGY REPORT (SQ) ---
EXAM DESCRIPTION: CT HEAD WITHOUT COMPLETED DATE/TIME: 06/16/2017 5:26 pm REASON FOR STUDY: LOC, hydrocephalus, hit shunt COMPARISON: 05/23/2017 TECHNIQUE: Axial images acquired through the brain without intravenous contrast. Images reviewed wi th bone, brain and subdural windows. Images stored on PACS. All CT scanners at this facility use dose modulation, iterative reconstruction, and/or weight based d osing when appropriate to reduce radiation dose to as low as reasonably achievable (ALARA). [facility]: Dose Right [facility]: CareDose [facility]: Dose Right [facility]: Teradose 4D [facility]: [employer] RADIATION DOSE: Up-to-date CT equipment and radiation dose reduction techniques were employed. CTDIv ol: 64.6 mGy. DLP: 1163 mGy-cm. mGy. LIMITATIONS: None. FINDINGS: VENTRICLES: Stable size and contour noting stable position and appearance of a right ventr iculostomy tube. CEREBRUM: No masses. No hemorrhage. No midline shift. No evidence for acute infarction. Normal gra y/white matter differentiation. No areas of low density in the white matter. CEREBELLUM: No masses. No hemorrhage. No alteration of density. No evidence for acute infarction. EXTRAAXIAL SPACES: No fluid collections. No masses. ORBITS AND GLOBE: No intra- or extraconal masses. Normal contour of globe without masses. CALVARIUM: No fracture. PARANASAL SINUSES: No fluid or mucosal thickening. SOFT TISSUES: No mass or hematoma. OTHER: No other significant finding. IMPRESSION: No evidence of acute calvarial injury or damage to the ventriculostomy tubing. Stable C T appearance of the brain. COMMENT: Quality ID # 436: Final reports with documentation of one or more dose reduction techniques (e.g., Automated exposure control, adjustment of the mA and/or kV according to patient size, use of iterative reconstruction technique) TECHNICAL DOCUMENTATION: JOB ID: [id number] [employer]- All Rights Reserved
[2017-06-16 17:46] LABS: CREATINE KINASE MB 0.38 ng/mL (<4.55)
[2017-06-16 17:47] LABS: TROPONIN I < 0.012 ng/mL
[2017-06-16] MEDS ORDERED: KETOROLAC TROMETHAMINE INJ/PF 30 MG/1 ML SDV IV ONE (18:31)
--- NOTE | 2017-06-16 19:37 | RADIOLOGY REPORT (SQ) ---
EXAM DESCRIPTION: CTA CHEST COMPLETED DATE/TIME: 06/16/2017 7:16 pm REASON FOR STUDY: syncope, elevated d-dimer COMPARISON: None. TECHNIQUE: CT scan of the chest performed using helical scanning technique with dynamic intravenous contrast injection. Images reviewed with lung, soft tissue and bone windows. Reconstructed coronal and sagittal MPR images reviewed. Additional 3 dimensional post-processing performed to develop Maximal Intensity Projection images (CO P). All images stored on PACS. All CT scanners at this facility use dose modulation, iterative reconstruction, and/or weight based d osing when appropriate to reduce radiation dose to as low as reasonably achievable (ALARA). [facility]: Dose Right [facility]: CareDose [facility]: Dose Right [facility]: Teradose 4D [facility]: [employer] CONTRAST TYPE AND DOSE: contrast/concentration: Isovue 370.00 mg/ml; Total Contrast Delivered: 86.0 ml; Total Saline Delivered: 110.0 ml Contrast bolus optimized for the pulmonary arteries. Not diagnostic for the aorta. RENAL FUNCTION: GFR > 60. RADIATION DOSE: Up-to-date CT equipment and radiation dose reduction techniques were employed. CTDIv ol: 13.2 - 33.0 mGy. DLP: 1269 mGy-cm. . LIMITATIONS: None. FINDINGS: LUNGS AND PLEURA: No masses, infiltrates, pneumothorax. No pleural effusions, calcificati ons. AORTA AND GREAT VESSELS: No aneurysm or dissection. HEART: Small pericardial effusion. No significant coronary artery calcifications. PULMONARY ARTERIES: No emboli visualized in the main pulmonary arteries or the segmental branches. HILAR AND MEDIASTINAL STRUCTURES: No identified masses or abnormal nodes. HARDWARE: None in the chest. UPPER ABDOMEN: No significant findings. Limited exam. THYROID AND OTHER SOFT TISSUES: No masses. No adenopathy. BONES: No acute or significant finding. 3D MIPS: Confirm above findings. OTHER: No other significant finding. IMPRESSION: No pulmonary emboli. Small pericardial effusion is a nonspecific finding. COMMENT: Quality ID # [id number]: Final reports with documentation of one or more dose reduction techniques (e.g., Automated exposure control, adjustment of the mA and/or kV according to patient size, use of iterative reconstruction technique) TECHNICAL DOCUMENTATION: JOB ID: [id number]- All Rights Reserved
--- NOTE | 2017-06-16 20:36 | RADIOLOGY REPORT (SQ) ---
EXAM DESCRIPTION: CERV SP 4 OR 5 VIEWS COMPLETED DATE/TIME: 06/16/2017 8:21 pm REASON FOR STUDY: fall, neck pain COMPARISON: None. NUMBER OF VIEWS: Five views including obliques. TECHNIQUE: AP, lateral, obliques and odontoid radiographic images acquired of the cervical spine. LIMITATIONS: None. FINDINGS: MINERALIZATION: Normal. SEGMENTATION: Normal. ALIGNMENT: Normal. VERTEBRAE: Maintained height. No fracture or worrisome bone lesion. Incidental note is made of back ground uncovertebral hypertrophy. DISCS: The intervertebral disc heights are largely preserved. POSTERIOR ELEMENTS: Pedicles and facets are intact. No posterior arch defects. Facet arthropathy is present. FORAMINA: Narrowed at the levels of maximal uncovertebral and facet disease. HARDWARE: None in the spine. PARASPINAL SOFT TISSUES: Normal. OTHER: No other significant finding. IMPRESSION: SPONDYLOSIS WITHOUT BONE LESION OR FRACTURE. TECHNICAL DOCUMENTATION: JOB ID: [id number] [employer]- All Rights Reserved
--- NOTE | 2017-06-16 20:38 | RADIOLOGY REPORT (SQ) ---
EXAM DESCRIPTION: HIP RIGHT AP/LATERAL COMPLETED DATE/TIME: 06/16/2017 8:22 pm REASON FOR STUDY: fall, pain COMPARISON: None. NUMBER OF VIEWS: Two views. TECHNIQUE: AP pelvis and additional frog-leg view of the right hip. LIMITATIONS: None. FINDINGS: MINERALIZATION: Normal. RIGHT HIP: No fracture or dislocation. No worrisome bone lesions. LEFT HIP: No fracture or dislocation. No worrisome bone lesions. PUBIS AND ISCHIUM: No fracture. PELVIS: No fracture. SACRUM: No fracture or dislocation. No worrisome bone lesions. LOWER LUMBAR SPINE: No fracture or dislocation. No worrisome bone lesions. No significant disc disea se. SOFT TISSUES: Incidental note is made of continued urinary excretion of a presumed recent intravenous contrast administration. OTHER: No other significant finding. IMPRESSION: NEGATIVE STUDY OF THE RIGHT HIP. NO RADIOGRAPHIC EVIDENCE OF ACUTE INJURY. TECHNICAL DOCUMENTATION: JOB ID: [id number] [employer]- All Rights Reserved
--- NOTE | 2017-06-16 22:01 | EKG REPORT ---
SEVERITY:- NORMAL ECG - SINUS RHYTHM : Confirmed by: Peng Monroy 16-Jun-2017 22:01:18
[2017-06-16] MEDS ORDERED: CYCLOBENZAPRINE HCL 10 MG TABLET PO ONE (22:11)
[2017-06-16] MEDS ORDERED: ACETAMINOPHEN 325 MG TABLET PO ONE (22:11)
[2017-06-16 22:22] VITALS: BP 103/75
== END 2017-06-16 22:30 | disposition home or self-care (01) ==
LOC: ER 15:10
DX: R55 Syncope and collapse (principal); S70.01XA Contusion of right hip, initial encounter; W18.30XA Fall on same level, unspecified, initial encounter; R42 Dizziness and giddiness; R11.0 Nausea; R51 Headache; H53.9 Unspecified visual disturbance; Z88.6 Allergy status to analgesic agent; Z98.2 Presence of cerebrospinal fluid drainage device; Z91.040 Latex allergy status
CPT/HCPCS: 93005; 99285; 96374; 36415; 82553; 80307; 82550; 84703; 85025; 80053; 84484; 85379; 72050; 73502; 70450; 71275; 93010; J3490 ×2; J1885

== ENCOUNTER 2017-06-17 15:33 | Emergency (ER) | payer MEDICAID ==
--- NOTE | 2017-06-17 16:27 | ER Document Report ---
ED Medical Screen (RME) - General Chief Complaint: Syncope Stated Complaint: SYNCOPE Time Seen by Provider: 06/17/17 16:23 TRAVEL OUTSIDE OF THE [place] IN LAST 30 DAYS: No - HPI Notes: 06/17/17 16:26 Multiple syncopal episode yesterday and today extensive workup yesterday states syncope again today patient in no obvious distress upon my entrance into examination room patient starts to hyperventilate during examination - Related Data Allergies/Adverse Reactions: codeine Allergy (Verified 06/16/17 15:43) hydrocodone Allergy (Verified 06/16/17 15:43) hydromorphone [From Dilaudid] Allergy (Verified 06/16/17 15:43) latex Allergy (Verified 06/16/17 15:47) morphine Allergy (Verified 06/16/17 15:43) oxycodone Allergy (Verified 06/16/17 15:43) Past Medical History - Social History Chew tobacco use (# tins/day): No Frequency of alcohol use: None Drug Abuse: None Renal/ Medical History: Denies: Hx Peritoneal Dialysis Psychiatric Medical History: Reports: Hx Anxiety, Hx Depression, Hx Post Traumatic Stress Disorder Past Surgical History: Reports: Hx Neurologic Surgery - 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
[2017-06-17 17:43] LABS: APPEARANCE,URINE SLIGHTLY-CLOUDY; BILIRUBIN,URINE NEGATIVE (NEGATIVE); GLUCOSE, URINE NEGATIVE (NEGATIVE); KETONES,URINE NEGATIVE (NEGATIVE); LEUKOCYTE ESTERASE,URINE MODERATE (NEGATIVE); NITRITE,URINE NEGATIVE (NEGATIVE); PROTEIN,URINE NEGATIVE (NEGATIVE); URINE SPECIFIC GRAVITY 1.011; UROBILINOGEN,URINE NEGATIVE mg/dL (<2.0)
[2017-06-17 17:46] LABS: ABSOLUTE EOSINOPHILS # (AUTO) 0.6 10^3/uL (0.0-0.6); ABSOLUTE LYMPHOCYTES (AUTO) 2.8 10^3/uL (0.5-4.7); ABSOLUTE MONOCYTES (AUTO) 0.6 10^3/uL (0.1-1.4); ABSOLUTE NEUT (AUTO) 5.4 10^3/uL (1.7-8.2); BASOPHILS % (AUTO) 0.4 % (0-2); EOSINOPHILS % (AUTO) 6.2 % (0-6); HEMATOCRIT 40.2 % (36.0-47.0); HEMOGLOBIN 14.1 g/dL (12.0-15.5); HGB HCT DIFFERENCE 2.1; LYMPHOCYTES % (AUTO) 29.7 % (13-45); MEAN CORPUSCULAR HEMOGLOBIN 28.9 pg (27.0-33.4); MEAN CORPUSCULAR VOLUME 83 fl (80-97); MONOCYTES % (AUTO) 6.8 % (3-13); RED BLOOD COUNT 4.87 10^6/uL (3.72-5.28); RED CELL DISTRIBUTION WIDTH 13.7 % (11.5-14.0); SEGMENTED NEUTROPHILS % (AUTO) 56.9 % (42-78); WHITE BLOOD COUNT 9.4 10^3/uL (4.0-10.5)
[2017-06-17 17:55] LABS: ALANINE AMINOTRANSFERASE 39 U/L (9-52); ALBUMIN 4.5 g/dL (3.5-5.0); ALKALINE PHOSPHATASE 55 U/L (38-126); ANION GAP 14 (5-19); ASPARTATE AMINO TRANSFERASE 29 U/L (14-36); BILIRUBIN,DIRECT 0.4 mg/dL (0.0-0.4); BILIRUBIN,TOTAL 0.6 mg/dL (0.2-1.3); BLOOD UREA NITROGEN 14 mg/dL (7-20); CALCIUM 10.4 mg/dL (8.4-10.2); CARBON DIOXIDE 22 mmol/L (22-30); CHLORIDE 105 mmol/L (98-107); CREATININE RESULT 0.84 mg/dL (0.52-1.25); GLUCOSE 92 mg/dL (75-110); LIPASE 134.5 U/L (23-300); POTASSIUM 4.3 mmol/L (3.6-5.0); SODIUM 141.2 mmol/L (137-145); TOTAL PROTEIN 7.6 g/dL (6.3-8.2)
[2017-06-17 17:57] LABS: URINE BARBITURATES SCREEN NEGATIVE; URINE METHADONE SCREEN NEGATIVE; URINE OPIATES LOW NEGATIVE; URINE PHENCYCLIDINE SCREEN NEGATIVE
--- NOTE | 2017-06-17 18:28 | ER Document Report ---
ED Syncope and Near Syncope <SAIRACHELSEA - Last Filed: 06/17/17 19:39> - General Mode of Arrival: Wheelchair Information source: Patient TRAVEL OUTSIDE OF THE [place] IN LAST 30 DAYS: No - HPI Similar symptoms previously: Yes Recently seen / treated by doctor: Yes - 06/16/2017 <ANDIE ZAVALA - Last Filed: 06/17/17 20:00> - General Chief Complaint: Syncope Stated Complaint: SYNCOPE Time Seen by Provider: 06/17/17 16:23 Notes: Patient is a 26 year old female presenting to the emergency department for syncope. Patient was seen in the emergency department yesterday after having a possible syncopal event while she was in the shower; yesterday patient had a negative workup. Yesterday patient kept having possible syncopal events while laying in the bed and she had to be sternal rubbed multiple times by nurses and family members to try and wake her up. Patient states she gets chest pressure just before she passes out and now she has constant chest pain in her sternum and under her left breast; states this could be related to the multiple sternal rubs that occurred yesterday. Today states the patient had 2 possible syncopal events on the way to his mother's house and she was able to wake up from them very quickly. states the patient had another episode on the way home and states that she did not wake up after a few minutes, she had a pulse, but she stopped breathing so he gave her rescue breaths until EMS arrived. states her first syncopal event was yesterday and he states when she passes out her carotid vein can been seen "pulsating." Patient states she is allergic to multiple pain medications but states she can have them if she is given ' Benadryl. (ANDIE ZAVALA) - Related Data Allergies/Adverse Reactions: codeine Allergy (Verified 06/16/17 15:43) hydrocodone Allergy (Verified 06/16/17 15:43) hydromorphone [From Dilaudid] Allergy (Verified 06/16/17 15:43) latex Allergy (Verified 06/16/17 15:47) morphine Allergy (Verified 06/16/17 15:43) oxycodone Allergy (Verified 06/16/17 15:43) Past Medical History - General Information source: Patient - Social History Smoking Status: Never Smoker Cigarette use (# per day): No Chew tobacco use (# tins/day): No Frequency of alcohol use: None Drug Abuse: None Family History: None Patient has suicidal ideation: No Patient has homicidal ideation: No Endocrine Medical History: Reports: Other - pituitary adenoma Psychiatric Medical History: Reports: Hx Anxiety, Hx Depression, Hx Post Traumatic Stress Disorder Past Surgical History: Reports: Hx Gynecologic Surgery - ectopic left sided March 2015, Hx Neurologic Surgery - 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 Mendes Time consulted: 19:35 Consulted provider: follow-up in office - Have the patient call his cell phone after 9 AM tomorrow morning to schedule a time to come in the office for Holter monitor. <CHELSEA CHÁVEZ - Last Filed: 06/17/17 19:39> - Laboratory Result Diagrams: 06/17/17 17:00 06/17/17 17:00 <ANDIE ZAVALA - Last Filed: 06/17/17 20:00> - Re-evaluation Re-evalutation: 06/17/17 19:42 The patient's ESR and CRP are quite low showing the mild pericardial effusion seen yesterday is not pericarditis or anything inflammatory. (CHELSEA CHÁVEZ) - Vital Signs Vital signs: Temp Pulse Resp BP Pulse Ox 98.6 F 102 H 16 119/82 96 06/17/17 15:38 06/17/17 15:38 06/17/17 15:38 06/17/17 15:38 06/17/17 15:38 - Laboratory Laboratory results interpreted by me: 06/17/17 06/17/17 06/17/17 17:00 17:00 17:00 Eosinophils % 6.2 H ESR Calcium 10.4 H Ur Leukocyte Esterase MODERATE H 06/17/17 17:00 Eosinophils % ESR 22 H Calcium Ur Leukocyte Esterase Discharge <CHELSEA CHÁVEZ - Last Filed: 06/17/17 19:39> <ANDIE ZAVALA - Last Filed: 06/17/17 20:00> - Discharge Clinical Impression: Syncope and collapse, Anterior chest wall pain Condition: Stable Disposition: HOME, SELF-CARE Additional Instructions: Syncopal Episode: Syncope (fainting or near-fainting) can occur from many different health problems. Or it can be a simple fainting spell requiring no treatment. It is safe for you to go home, but further evaluation will likely be necessary. Your work-up may include tests for internal bleeding, heart disease, medication problems, or near-strokes. Tests are not always required, however, depending on the nature of your problem. The warning signs of an impending faint include: dizziness, lightheadedness , nausea, hot flashes, tingling, and weakness. If this happens, lay down and put your feet up, then wait until all of these symptoms have passed before standing up again. If these episodes become recurrent, or if you develop chest pain, heart palpitations, mental confusion, blurred vision, or headache, then you should call the physician, or go to the emergency room. CALL DR. PUGA AT [phone] TOMORROW MORNING AFTER 9:00 AM TO SCHEDULE A TIME TO GO INTO THE OFFICE FOR A HOLTER MONITOR AND FURTHER EVALUATION OF YOUR BLACKING OUT SPELLS. RETURN TO THE EMERGENCY ROOM IF ANY NEW OR WORSENING SYMPTOMS. Referrals: ROCIO MENDES MD [ACTIVE STAFF] - 06/18/17 (Call [phone] after 9:00 AM on Sunday to schedule an appointment time.) Scribe Attestation: 06/17/17 19:41 I personally performed the services described in the documentation, reviewed and edited the documentation which was dictated to the scribe in my presence, and it accurately records my words and actions. (CHELSEA CHÁVEZ)
[2017-06-17 18:52] LABS: ADD ON TESTING BLD IN LAB ACKNOWLEDGE
[2017-06-17 19:16] LABS: C-REACTIVE PROTEIN 6.6 mg/L (<10.0)
[2017-06-17 20:26] VITALS: BP 123/79
--- NOTE | 2017-06-17 23:30 | EKG REPORT ---
SEVERITY:- NORMAL ECG - SINUS RHYTHM : Confirmed by: Peng Monroy 17-Jun-2017 23:30:26
== END 2017-06-17 20:22 | disposition home or self-care (01) ==
LOC: ER 15:33
DX: R55 Syncope and collapse (principal); R07.89 Other chest pain
CPT/HCPCS: 36415; 80053; 80307; 81001; 83690; 85025; 85652; 86140; 93005; 93010; 99284

== ENCOUNTER → 2017-07-17 | Outpatient (CLI) | payer MEDICAID ==
--- NOTE | 2017-07-17 11:01 | RADIOLOGY REPORT (SQ) ---
EXAM DESCRIPTION: CHEST PA/LAT COMPLETED DATE/TIME: 07/17/2017 10:54 am REASON FOR STUDY: OTHER CHEST PAIN (R07.89) COMPARISON: None. EXAM PARAMETERS: NUMBER OF VIEWS: two views TECHNIQUE: Digital Frontal and Lateral radiographic views of the chest acquired. RADIATION DOSE: NA LIMITATIONS: none FINDINGS: LUNGS AND PLEURA: No opacities, masses or pneumothorax. No pleural effusion. MEDIASTINUM AND HILAR STRUCTURES: No masses or contour abnormalities. HEART AND VASCULAR STRUCTURES: Heart normal size. No evidence for failure. BONES: No acute findings. HARDWARE: Faintly radiopaque ventriculoperitoneal shunt tubing over the chest OTHER: No other significant finding. IMPRESSION: NO SIGNIFICANT RADIOGRAPHIC FINDING IN THE CHEST. TECHNICAL DOCUMENTATION: JOB ID: [id number] [employer]- All Rights Reserved
== END ==
LOC: RAD 10:24
PROVIDERS: ATTEND Physician Assistant Medical
DX: R07.89 Other chest pain (principal)
CPT/HCPCS: 71020

== ENCOUNTER 2017-07-23 19:57 | Emergency (ER) | payer MEDICAID ==
[2017-07-23 21:37] VITALS: BP 122/76
--- NOTE | 2017-07-23 22:08 | RADIOLOGY REPORT (SQ) ---
EXAM DESCRIPTION: FINGER LEFT COMPLETED DATE/TIME: 07/23/2017 9:57 pm REASON FOR STUDY: pain s/p injury COMPARISON: None. NUMBER OF VIEWS: Three views. TECHNIQUE: AP, lateral, and oblique images acquired of the left second finger. LIMITATIONS: None. FINDINGS: MINERALIZATION: Normal. BONES: No acute fracture or dislocation. No worrisome bone lesions. SOFT TISSUES: No soft tissue swelling. No foreign body. OTHER: No other significant finding. IMPRESSION: NO RADIOGRAPHIC EVIDENCE OF ACUTE INJURY. COMMENT: SITE OF TRAUMA/COMPLAINT MARKED/STAMP COMPLETED: No TECHNICAL DOCUMENTATION: JOB ID: [id number] [employer]- All Rights Reserved
[2017-07-23] MEDS ORDERED: IBUPROFEN 600 MG TABLET PO ONE (22:27)
--- NOTE | 2017-07-23 22:27 | ER Document Report ---
HPI - HPI Pain Level: 4 Context: patient is a 27-year-old female presents emergency department complaining of left finger abrasion. Patient states that she was cleaning out her vacuum when her 3-year-old daughter came over and turned it on. She admits to pain with range of motion of the finger and wanted to be sure that was broken. States she is unaware of her last tetanus. Otherwise denies any numbness or tingling distal injury. 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 IN LAST 30 DAYS: No - RESPIRATORY O2 Sat by Pulse Oximetry: 99 - CARDIOVASCULAR Pulses: Normal: Radial - cap refill < 2 seconds - MUSCULOSKELETAL/EXTREMETIES Musculoskeletal/Extremeties: MAEW, FROM, Non-Tender, No Edema - NEURO Level of Consciousness: Awake, Alert, Appropriate Motor/Sensory: No Motor Deficit, No Sensory Deficit - DERM Integumentary: Warm, Dry, No Rash Notes: abraision on the extensor surface of the left index finger without edema, bleeing deformity Course - Re-evaluation Re-evalutation: 07/23/17 22:00 Patient is a 27 yea rold female who is HDS, NAD, and afebrile. No evidence of a dislocation, or fracture on exam and imaging. Vitals wnl. At this time, I do not see an indication for labs or further imaging. Patient place din splint for comfort. Will discharge with conservative measures, return precautions, and follow-up recommendations. - Vital Signs Vital signs: Temp Pulse Resp BP Pulse Ox 98.4 F 78 20 122/76 99 07/23/17 21:30 07/23/17 21:30 07/23/17 21:30 07/23/17 21:30 07/23/17 21:30 - Diagnostic Test Radiology reviewed: Image reviewed, Reports reviewed Procedures - Immobilization Left Finger 2nd digit Pre-Proc Neuro Vasc Exam: Normal Immobilizer type: Finger protection Performed by: RN Post-Proc Neuro Vasc Exam: Normal, Unchanged from pre-exam Alignment checked and good: Yes Discharge - Discharge Clinical Impression: Finger injury Qualifiers: Encounter type: initial encounter Laterality: left Qualified Code(s): S69.92XA - Unspecified injury of left wrist, hand and finger(s), initial encounter Condition: Good Disposition: HOME, SELF-CARE Instructions: Abrasions ([facility]), Use of Jhte-Iji-Zdaphnk Ibuprofen ([facility])
[2017-07-23] MEDS ORDERED: DIPH/PERTUSS(ACELL)/TETANUS VAC/PF 0.5 ML SYR (>=10YO) IM ONE (22:36)
== END 2017-07-23 22:54 | disposition home or self-care (01) ==
LOC: ER 19:57
DX: S60.411A Abrasion of left index finger, initial encounter (principal); X58.XXXA Exposure to other specified factors, initial encounter; Y93.E3 Activity, vacuuming; Z23 Encounter for immunization
CPT/HCPCS: 99283; 90471; 73140; 90715; J3490

== ENCOUNTER 2017-08-23 17:39 | Emergency (ER) | payer MEDICAID ==
[2017-08-23] MEDS ORDERED: DICYCLOMINE HCL 20 MG TABLET PO ONE (19:55)
[2017-08-23] MEDS ORDERED: METOCLOPRAMIDE HCL 10 MG TABLET PO ONE (19:55)
--- NOTE | 2017-08-23 19:57 | ER Document Report ---
ED General - General Chief Complaint: Diarrhea Stated Complaint: NAUSEA/DIARRHEA Time Seen by Provider: 08/23/17 17:59 Mode of Arrival: Ambulatory Information source: Patient Notes: 27-year-old female presents with 48 hour of nausea with diarrhea. Patient denies any fevers admits to generalized cramping sensation. Patient denies any sick contacts denies any well water or recent antibiotic use. Patient denies any other concerns at this time TRAVEL OUTSIDE OF THE [place] IN LAST 30 DAYS: No - HPI Onset: Other - 48 hours Onset/Duration: Persistent Quality of pain: Cramping Severity: Mild Pain Level: 1 Associated symptoms: Diarrhea, Nausea Exacerbated by: Denies Relieved by: Denies Similar symptoms previously: No Recently seen / treated by doctor: No - Related Data Allergies/Adverse Reactions: codeine Allergy (Verified 08/23/17 17:44) hydrocodone Allergy (Verified 08/23/17 17:44) hydromorphone [From Dilaudid] Allergy (Verified 08/23/17 17:44) latex Allergy (Verified 08/23/17 17:44) morphine Allergy (Verified 08/23/17 17:44) oxycodone Allergy (Verified 08/23/17 17:44) Past Medical History - Social History Smoking Status: Never Smoker Cigarette use (# per day): No Chew tobacco use (# tins/day): No Smoking Education Provided: No Frequency of alcohol use: None Drug Abuse: None Family History: None Patient has suicidal ideation: No Patient has homicidal ideation: No Renal/ Medical History: Denies: Hx Peritoneal Dialysis Psychiatric Medical History: Reports: Hx Anxiety, Hx Depression, Hx Post Traumatic Stress Disorder Past Surgical History: Reports: Hx Gynecologic Surgery - ectopic left sided March 2015, 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 Denies recent illness. EENT: Denies eye, ear, throat, or mouth pain or symptoms. Denies nasal or sinus congestion or discharge. Denies throat, tongue, or mouth swelling or difficulty swallowing. CARDIOVASCULAR: Denies chest pain. Denies palpitations or racing or irregular heart beat. Denies ankle edema. RESPIRATORY: Denies cough, cold, or chest congestion. Denies shortness of breath, difficulty breathing, or wheezing. GASTROINTESTINAL: Admits to nausea diarrhea GENITOURINARY: Denies difficulty urinating, painful urination, burning, frequency, blood in urine, or discharge. FEMALE GENITOURINARY: Denies vaginal bleeding, heavy or abnormal periods, irregular periods. Denies vaginal discharge or odor. MUSCULOSKELETAL: Denies back or neck pain or stiffness. Denies joint pain or swelling. SKIN: Denies rash, lesions or sores. HEMATOLOGIC : Denies easy bruising or bleeding. LYMPHATIC: Denies swollen, enlarged glands. NEUROLOGICAL: Denies confusion or altered mental status. Denies passing out or loss of consciousness. Denies dizziness or lightheadedness. Denies headache. Denies weakness or paralysis or loss of use of either side. Denies problems with gait or speech. Denies sensory loss, numbness, or tingling. Denies seizures. PSYCHIATRIC: Denies anxiety or stress. Denies depression, suicidal ideation, or homicidal ideation. ALL OTHER SYSTEMS REVIEWED AND NEGATIVE. PHYSICAL EXAMINATION: GENERAL: Well-appearing, well-nourished and in no acute distress. HEAD: Atraumatic, normocephalic. EYES: Pupils equal round and reactive to light, extraocular movements intact, conjunctiva are normal. ENT: Nares patent, oropharynx clear without exudates. Moist mucous membranes. NECK: Normal range of motion, supple without lymphadenopathy LUNGS: Breath sounds clear to auscultation bilaterally and equal. No wheezes rales or rhonchi. HEART: Regular rate and rhythm without murmurs ABDOMEN: Soft, nontender, nondistended abdomen. No guarding, no rebound. No masses appreciated. Female : deferred Musculoskeletal: Normal range of motion, no pitting or edema. No cyanosis. NEUROLOGICAL: Cranial nerves grossly intact. Normal speech, normal gait. Normal sensory, motor exams PSYCH: Normal mood, normal affect. SKIN: Warm, Dry, normal turgor, no rashes or lesions noted. Dictation was performed using [employer] voice recognition software Physical Exam - Vital signs Vitals: Temp Pulse Resp BP Pulse Ox 97.7 F 80 20 134/89 H 97 08/23/17 17:44 08/23/17 17:44 08/23/17 17:44 08/23/17 17:44 08/23/17 17:44 Course - Re-evaluation Re-evalutation: 08/24/17 00:00 I had a very long discussion regarding concerns for diarrhea, patient is taking [id number] medication to slow down the diarrhea and we have discussed the use of this medication, given that she is afebrile looks well is not vomiting I have very low suspicion for dehydration or any other life-threatening issues. I did discuss with the patient and did offer IV placement as well as IM medication and she wishes to just take p.o. medications instead. I will discharge her at this time given that she overall is holding fluids. Very strict return precautions have been provided After performing a Medical Screening Examination, I estimate there is LOW risk for ACUTE APPENDICITIS, BOWEL OBSTRUCTION, ACUTE CHOLECYSTITIS, PERFORATED DIVERTICULITIS, INCARCERATED HERNIA, PANCREATITIS, PELVIC INFLAMMATORY DISEASE, PERFORATED ULCER, ECTOPIC , or TUBO-OVARIAN ABSCESS, thus I consider the discharge disposition reasonable. Also, there is no evidence or peritonitis , sepsis, or toxicity. I have reevaluated this patient multiple times and no significant life threatening changes are noted. The patient and I have discussed the diagnosis and risks, and we agree with discharging home with close follow-up with the understanding that symptoms and presentations can change. We also discussed returning to the Emergency Department immediately if new or worsening symptoms occur. We have discussed the symptoms which are most concerning (e.g., bloody stool, fever, changing or worsening pain, vomiting) that necessitate immediate return. - Vital Signs Vital signs: Temp Pulse Resp BP Pulse Ox 97.7 F 74 18 116/69 97 08/23/17 20:25 08/23/17 20:25 08/23/17 20:25 08/23/17 20:25 08/23/17 20:25 Discharge - Discharge Clinical Impression: Nausea Diarrhea Qualifiers: Diarrhea type: unspecified type Qualified Code(s): R19.7 - Diarrhea, unspecified Condition: Stable Disposition: HOME, SELF-CARE Instructions: Diarrhea, Nonspecific ([facility]), Nausea or Vomiting, Nonspecific ([facility] ) Prescriptions: Dicyclomine HCl [Bentyl 20 mg Tablet] 20 mg PO QID #40 tablet Metoclopramide HCl [Reglan 10 mg Tablet] 1 - 2 tab PO ASDIR PRN #25 tablet PRN Reason: Referrals: JUDIT CONN PA-C [Primary Care Provider] - Follow up in 3-5 days
[2017-08-23 20:40] VITALS: BP 116/69
== END 2017-08-23 20:25 | disposition home or self-care (01) ==
LOC: ER 17:39
DX: R19.7 Diarrhea, unspecified (principal); R11.0 Nausea
CPT/HCPCS: 99283; J3490 ×2

== ENCOUNTER → 2017-09-07 | Outpatient (CLI) | payer MEDICAID | LOC: OD 15:12 | PROVIDERS: ATTEND Nurse Practitioner Acute Care | DX: R30.0 Dysuria (principal) | CPT/HCPCS: 87086 ==

== ENCOUNTER 2017-10-27 10:37 | Emergency (ER) | payer MEDICAID ==
[2017-10-27] MEDS ORDERED: KETOROLAC TROMETHAMINE 60 MG/2 ML SDV IM ONE (10:52)
--- NOTE | 2017-10-27 11:09 | ER Document Report ---
ED General - General Chief Complaint: Chest Pain Stated Complaint: CHEST PAIN,SHORTNESS OF BREATH Time Seen by Provider: 10/27/17 10:45 Mode of Arrival: Ambulatory Information source: Patient Notes: 27-year-old female history of mitral valve prolapse presents with complaints of left-sided chest pressure sensation. Patient notes it hurts when she moves when she takes deep breath. Patient notes touching her chest hurts. Patient notes she always has twinging chest pain that she is on metoprolol for but this 1 is more of a sharp pressure pain. Patient denies any DVT PE risk factors TRAVEL OUTSIDE OF THE [place] IN LAST 30 DAYS: No - HPI Onset: Yesterday Onset/Duration: Persistent Quality of pain: Pressure, Sharp Severity: Mild Pain Level: 1 Associated symptoms: Body/muscle aches, Chest pain, Shortness of breath Exacerbated by: Movement, Deep breathing Relieved by: Remaining still Similar symptoms previously: No Recently seen / treated by doctor: Yes - Related Data Allergies/Adverse Reactions: codeine Allergy (Verified 10/27/17 10:38) hydrocodone Allergy (Verified 10/27/17 10:38) hydromorphone [From Dilaudid] Allergy (Verified 10/27/17 10:38) latex Allergy (Verified 10/27/17 10:38) morphine Allergy (Verified 10/27/17 10:38) oxycodone Allergy (Verified 10/27/17 10:38) Past Medical History - Social History Smoking Status: Never Smoker Cigarette use (# per day): No Chew tobacco use (# tins/day): No Smoking Education Provided: No Family History: None Renal/ Medical History: Denies: Hx Peritoneal Dialysis Psychiatric Medical History: Reports: Hx Anxiety, Hx Depression, Hx Post Traumatic Stress Disorder Past Surgical History: Reports: Hx Gynecologic Surgery - ectopic left sided March 2015, 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 Denies recent illness. EENT: Denies eye, ear, throat, or mouth pain or symptoms. Denies nasal or sinus congestion or discharge. Denies throat, tongue, or mouth swelling or difficulty swallowing. CARDIOVASCULAR: Admits to chest wall pain RESPIRATORY: Admits shortness of breath GASTROINTESTINAL: Denies abdominal pain or distention. Denies nausea, vomiting , or diarrhea. Denies blood in vomitus, stools, or per rectum. Denies black, tarry stools. Denies constipation. GENITOURINARY: Denies difficulty urinating, painful urination, burning, frequency, blood in urine, or discharge. FEMALE GENITOURINARY: Denies vaginal bleeding, heavy or abnormal periods, irregular periods. Denies vaginal discharge or odor. MUSCULOSKELETAL: Denies back or neck pain or stiffness. Denies joint pain or swelling. SKIN: Denies rash, lesions or sores. HEMATOLOGIC : Denies easy bruising or bleeding. LYMPHATIC: Denies swollen, enlarged glands. NEUROLOGICAL: Denies confusion or altered mental status. Denies passing out or loss of consciousness. Denies dizziness or lightheadedness. Denies headache. Denies weakness or paralysis or loss of use of either side. Denies problems with gait or speech. Denies sensory loss, numbness, or tingling. Denies seizures. PSYCHIATRIC: Denies anxiety or stress. Denies depression, suicidal ideation, or homicidal ideation. ALL OTHER SYSTEMS REVIEWED AND NEGATIVE. PHYSICAL EXAMINATION: GENERAL: Well-appearing, well-nourished and in no acute distress. HEAD: Atraumatic, normocephalic. EYES: Pupils equal round and reactive to light, extraocular movements intact, conjunctiva are normal. ENT: Nares patent, oropharynx clear without exudates. Moist mucous membranes. NECK: Normal range of motion, supple without lymphadenopathy LUNGS: Breath sounds clear to auscultation bilaterally and equal. No wheezes rales or rhonchi. HEART: Regular rate and rhythm with mild regurg is noted, left anterior midclavicular tenderness on palpation ribs 2 7 reproducing same exact pain ABDOMEN: Soft, nontender, nondistended abdomen. No guarding, no rebound. No masses appreciated. Female : deferred Musculoskeletal: Normal range of motion, no pitting or edema. No cyanosis. NEUROLOGICAL: Cranial nerves grossly intact. Normal speech, normal gait. Normal sensory, motor exams PSYCH: Normal mood, normal affect. SKIN: Warm, Dry, normal turgor, no rashes or lesions noted. Dictation was performed using [employer] recognition software Physical Exam - Vital signs Vitals: Temp Pulse Resp BP Pulse Ox 97.9 F 85 14 126/81 H 96 10/27/17 10:42 10/27/17 10:42 10/27/17 10:42 10/27/17 10:42 10/27/17 10:42 Course - Re-evaluation Re-evalutation: 10/27/17 11:09 Patient's presentation is consistent with muscle ache costochondritis, given her history EKG chest x-ray have been ordered 10/27/17 13:13 Chest x-ray noted left pleural thickening but patient has no cough no fever no infiltrate no concerns of pneumonia at this time reports have been provided After performing a Medical Screening Examination, I estimate there is LOW risk for RUPTURED ESOPHAGUS, PNEUMOTHORAX, PULMONARY EMBOLISM, ACUTE CORONARY SYNDROME, OR THORACIC AORTIC DISSECTION, thus I consider the discharge disposition reasonable. I have reevaluated this patient multiple times and no significant life threatening changes are noted. The patient and I have discussed the diagnosis and risks, and we agree with discharging home with close follow-up. We also discussed returning to the Emergency Department immediately if new or worsening symptoms occur. We have discussed the symptoms which are most concerning (e.g., bloody sputum, worsening pain or shortness of breath) that necessitate immediate return. - Vital Signs Vital signs: Temp Pulse Resp BP Pulse Ox 97.9 F 85 14 126/81 H 96 10/27/17 10:42 10/27/17 10:42 10/27/17 10:42 10/27/17 10:42 10/27/17 10:42 - Diagnostic Test Radiology reviewed: Image reviewed, Reports reviewed - EKG Interpretation by Me EKG shows normal: Sinus rhythm, [place], Intervals, QRS Complexes Discharge - Discharge Clinical Impression: Chest wall pain Condition: Stable Disposition: HOME, SELF-CARE Instructions: Chest Pain of Unclear Cause ([facility]) Prescriptions: Naproxen 500 mg PO BID #20 tablet Referrals: JOI COLMENARES MD [ACTIVE STAFF] - Follow up tomorrow
--- NOTE | 2017-10-27 11:23 | RADIOLOGY REPORT (SQ) ---
EXAM DESCRIPTION: CHEST PA/LAT COMPLETED DATE/TIME: 10/27/2017 11:10 am REASON FOR STUDY: chest pain COMPARISON: 07/17/2017. EXAM PARAMETERS: NUMBER OF VIEWS: two views TECHNIQUE: Digital Frontal and Lateral radiographic views of the chest acquired. RADIATION DOSE: NA LIMITATIONS: none FINDINGS: LUNGS AND PLEURA: No infiltrate, masses or pneumothorax. Left pleural thickening. MEDIASTINUM AND HILAR STRUCTURES: No masses or contour abnormalities. HEART AND VASCULAR STRUCTURES: Heart normal size. No evidence for failure. BONES: No acute findings. HARDWARE: None in the chest. 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 IMPRESSION: Left pleural thickening. No acute disease. TECHNICAL DOCUMENTATION: JOB ID: [id number] 2010 [employer]- All Rights Reserved
[2017-10-27 13:23] VITALS: BP 112/67
--- NOTE | 2017-10-28 11:56 | EKG REPORT ---
SEVERITY:- NORMAL ECG - SINUS RHYTHM : Confirmed by: Kinza Mendes MD 28-Oct-2017 11:55:39
== END 2017-10-27 13:22 | disposition home or self-care (01) ==
LOC: ER 10:37
DX: R07.89 Other chest pain (principal); R06.02 Shortness of breath; Z79.899 Other long term (current) drug therapy; Z86.79 Personal history of other diseases of the circulatory system; Z88.5 Allergy status to narcotic agent; Z91.040 Latex allergy status
CPT/HCPCS: 93005; 99285; 96372; 71046; 93010; J1885

== ENCOUNTER 2017-12-12 22:07 | Emergency (ER) | payer MEDICAID ==
--- NOTE | 2017-12-12 22:55 | ER Document Report ---
ED General - General Chief Complaint: Constipation Stated Complaint: ABDOMINAL PAIN Time Seen by Provider: 12/12/17 22:39 Notes: Patient is a 27-year-old female who presents with complaint of abdominal pain for 3-4 days. Patient says the pain is diffuse but is worse over the right lower portion of her abdomen. Patient says that she has some nausea but does not vomit. She has not had fevers. She has not had diarrhea. Patient says she thinks pain is related to constipation. She denies previous surgeries on her abdomen except for a shunt as a child. Patient said the shunt was due to hydrocephalus. She says that she feels the pain most likely is related to constipation. She says she has not had a bowel movement for over a week. She has tried Dulcolax, stool softeners, and an enema at home. She has not had any results. She says she has had some constipation she is in the past, but this is worse it has ever been. Patient says she does not think there is any chance she could be . TRAVEL OUTSIDE OF THE [place] IN LAST 30 DAYS: No - Related Data Allergies/Adverse Reactions: codeine Allergy (Verified 10/27/17 10:38) hydrocodone Allergy (Verified 10/27/17 10:38) hydromorphone [From Dilaudid] Allergy (Verified 10/27/17 10:38) latex Allergy (Verified 10/27/17 10:38) morphine Allergy (Verified 10/27/17 10:38) oxycodone Allergy (Verified 10/27/17 10:38) Past Medical History - Social History Smoking Status: Never Smoker Chew tobacco use (# tins/day): No Frequency of alcohol use: None Drug Abuse: None Family History: None Patient has suicidal ideation: No Patient has homicidal ideation: No Renal/ Medical History: Denies: Hx Peritoneal Dialysis Psychiatric Medical History: Reports: Hx Anxiety, Hx Depression, Hx Post Traumatic Stress Disorder Past Surgical History: Reports: Hx Gynecologic Surgery - ectopic left sided March 2015, Hx Neurologic Surgery - 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 Denies recent illness. CARDIOVASCULAR: Denies chest pain. RESPIRATORY: Denies cough, cold, or chest congestion. Denies shortness of breath, difficulty breathing, or wheezing. GASTROINTESTINAL: Diffuse abdominal pain. Some nausea. Constipation. GENITOURINARY: Denies difficulty urinating, painful urination, burning, frequency, or blood in urine. FEMALE GENITOURINARY: Denies vaginal bleeding, abnormal or irregular periods. MUSCULOSKELETAL: Denies neck or back pain or joint pain or swelling. SKIN: Denies rash or skin lesions. NEUROLOGICAL: Denies altered mental status or loss of consciousness. Denies headache. Denies weakness or paralysis or loss of use of either side. Denies problems with gait or speech. Denies sensory or motor loss. ALL OTHER SYSTEMS REVIEWED AND NEGATIVE. Physical Exam - Vital signs Vitals: Temp Pulse Resp BP Pulse Ox 98.6 F 99 16 121/78 98 12/12/17 22:16 12/12/17 22:16 12/12/17 22:16 12/12/17 22:16 12/12/17 22:16 - Notes Notes: General Appearance: Well nourished, alert, cooperative, no acute distress, mild to moderate obvious discomfort. Vitals: reviewed, See vital signs table. Eyes: PERRL, EOMI, Conjuctiva clear Lungs: No wheezing, No rales, No rhonci, No accessory muscle use, good air exchange bilaterally. Heart: Normal rate, Regular rythm, No murmur, no rub Abdomen: Normal BS, soft, No rigidity, mild diffuse abdominal tenderness is worse over the right lower quadrant., No guarding, no rebound, no abdominal masses, no organomegaly Extremities: strength 5/5 in all extremities, good pulses in all extremities, no swelling or tenderness in the extremities, no edema. Skin: warm, dry, appropriate color, no rash Neuro: speech clear, oriented x 3, normal affect, responds appropriately to questions. Course - Re-evaluation Re-evalutation: 12/13/17 00:42 After the enema patient had a fairly large amount stool come out. She said the pressure and lower part of abdomen is now gone. Said she still has some pressure in the upper part of her abdomen. Will have her walk around for 15 to 30 minutes. After that we will give her the rest of enema just to see if we relieve her of a little more stool burden. After that she will be discharged home. She looks and feels much better. Mentions that the constipation started when she started the Cymbalta. She stopped it 3 days ago. According to the pocket his constipation is a common reaction to Cymbalta. We will have her continue stop taking it and follow-up with her doctor as well. Dictation of this chart was performed using voice recognition software; therefore, there may be some unintended grammatical errors. 12/13/17 01:27 She got second time and had another large bowel movement. She has been nausea after vomiting but otherwise feels a lot better. Her pain improved greatly with the bowel movements suggesting that this is related to constipation. I did not obtain blood work as I do not suspect appendicitis even though she does have some right lower quadrant pain initially. With the appendicitis and likely being that she has had no fevers, the pain is been there for several days , and the pain is associated with her not having a bowel movement for a week and was improved after having bowel movements here. Encouraged her return to ER if she has recurrent worsening pain, vomiting, fevers, or feels unwell. Patient agrees with plan and will be discharged home. Dictation of this chart was performed using voice recognition software; therefore, there may be some unintended grammatical errors. - Vital Signs Vital signs: Temp Pulse Resp BP Pulse Ox 98.6 F 99 16 121/78 98 12/12/17 22:16 12/12/17 22:16 12/12/17 22:16 12/12/17 22:16 12/12/17 22:16 - Laboratory Laboratory results interpreted by me: 12/12/17 22:59 Urine Urobilinogen 4.0 H Ur Leukocyte Esterase TRACE H Discharge - Discharge Clinical Impression: Fecal impaction Abdominal pain Qualifiers: Abdominal location: generalized Qualified Code(s): R10.84 - Generalized abdominal pain Condition: Good Disposition: HOME, SELF-CARE Additional Instructions: Please return to the ER immediately if you develop worsening pain, fevers, vomiting, or feel that you are worsening in any way. Continue to hold the Cymbalta Please take over the counter Miralax as well as Colace. Stop taking the Miralax when your stool starts to become liquid. Forms: Return to Work Referrals: TATIANA GRANADOS NP [Primary Care Provider] - 12/14/17
[2017-12-12 23:12] LABS: APPEARANCE,URINE SLIGHTLY-CLOUDY; BILIRUBIN,URINE NEGATIVE (NEGATIVE); COLOR,URINE YELLOW; GLUCOSE, URINE NEGATIVE (NEGATIVE); KETONES,URINE NEGATIVE (NEGATIVE); LEUKOCYTE ESTERASE,URINE TRACE (NEGATIVE); NITRITE,URINE NEGATIVE (NEGATIVE); PROTEIN,URINE NEGATIVE (NEGATIVE); URINE SPECIFIC GRAVITY 1.016
[2017-12-13] MEDS ORDERED: MINERAL OIL 30 ML UDCUP ONE (00:15)
--- NOTE | 2017-12-13 00:15 | RADIOLOGY REPORT (SQ) ---
EXAM DESCRIPTION: ACUTE ABDOMEN SERIES CLINICAL HISTORY: 27 years, Female, abdominal pain COMPARISON: None. FINDINGS: Intestinal gas pattern is within normal limits. Moderate stool retention. No suspicious calcification. Grossly intact skeletal structures. No acute cardiopulmonary findings. 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 IMPRESSION: No acute findings.
[2017-12-13] MEDS ORDERED: ONDANSETRON 4 MG TAB.RAPDIS PO ONE (01:26)
[2017-12-13] MEDS ORDERED: ONDANSETRON ODT 4 MG TAB (6 TAB/ER DISP) PO PRN (01:40)
[2017-12-13 01:48] VITALS: BP 119/78
== END 2017-12-13 01:47 | disposition home or self-care (01) ==
LOC: ER 22:07
DX: K56.41 Fecal impaction (principal); R10.84 Generalized abdominal pain; R11.0 Nausea
CPT/HCPCS: 99284; 81025; 81001; 74022; S0119; J3490

== ENCOUNTER 2017-12-15 14:52 | Emergency (ER) | payer MEDICAID ==
--- NOTE | 2017-12-15 15:25 | ER Document Report ---
ED Headache - General Chief Complaint: Headache Stated Complaint: BACK PAIN Time Seen by Provider: 12/15/17 15:17 Notes: 27-year-old female patient complaining of headache, neck stiffness. States that she was in the ER a few days ago for some abdominal discomfort. Was diagnosed with constipation. Had an enema and had a large bowel movement and felt better so went home. Denied any significant right lower quadrant pain at that time. Denied any right upper quadrant pain. States that over the last couple of days she has not felt really good. Loss of appetite. Worsening pain and stiffness in her neck. Hurts to move. 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 Does not see a neurologist. Has not had any shunt revisions for the last several years. No recent surgeries. TRAVEL OUTSIDE OF THE [place] IN LAST 30 DAYS: No - HPI Patient complains to provider of: Headache Patient reports: DISTRICT SALES LEADER Shunt Onset: Yesterday Onset was: Gradual Timing: Worse Quality of pain: Throbbing Severity: Moderate Pain Level: 2 - Related Data Allergies/Adverse Reactions: codeine Allergy (Verified 10/27/17 10:38) hydrocodone Allergy (Verified 10/27/17 10:38) hydromorphone [From Dilaudid] Allergy (Verified 10/27/17 10:38) latex Allergy (Verified 10/27/17 10:38) morphine Allergy (Verified 10/27/17 10:38) oxycodone Allergy (Verified 10/27/17 10:38) Past Medical History - General Information source: Patient - Social History Smoking Status: Never Smoker Chew tobacco use (# tins/day): No Frequency of alcohol use: None Drug Abuse: None Lives with: Spouse/Significant other Family History: None Patient has suicidal ideation: No Patient has homicidal ideation: No Renal/ Medical History: Denies: Hx Peritoneal Dialysis Psychiatric Medical History: Reports: Hx Anxiety, Hx Depression, Hx Post Traumatic Stress Disorder Past Surgical History: Reports: Hx Gynecologic Surgery - ectopic left sided March 2015, Hx Neurologic Surgery - DISTRICT SALES LEADER shunt placement for hydrocephalus, Hx Tonsillectomy - Immunizations Hx Diphtheria, Pertussis, Tetanus Vaccination: Yes Review of Systems - Review of Systems Constitutional: Fever, Weakness. denies: Chills, Diaphoresis EENT: denies: Eye pain, Eye discharge, Blurred vision, Double vision, Throat pain, Difficulty swallowing, Throat swelling, Mouth pain Cardiovascular: denies: Palpitations, Heart racing, Orthopnea, Syncope, Dizziness, Lightheaded, Edema Respiratory: denies: Cough, Hurts to breathe, Short of breath, Wheezing Gastrointestinal: Abdominal pain, Nausea, Vomiting. denies: Abdomen distended, Diarrhea Genitourinary: denies: Burning, Dysuria, Frequency, Flank pain, Hematuria Female Genitourinary: denies: , Vaginal discharge, Vaginal bleeding Musculoskeletal: Back pain, Muscle stiffness, Neck pain. denies: Joint pain Skin: denies: Dryness, Lesions, Rash Hematologic/Lymphatic: denies: Anemia, Blood clots, Easy bleeding, Easy bruising Neurological/Psychological: Headaches. denies: Confusion, Dementia, Depression , Seizure, Numbness Physical Exam - Vital signs Vitals: Temp Pulse Resp BP Pulse Ox 98.5 F 103 H 12 141/97 H 98 12/15/17 15:03 12/15/17 15:03 12/15/17 15:03 12/15/17 15:03 12/15/17 15:03 Interpretation: Tachycardic - General General appearance: Appears well, Alert - HEENT Head: Normocephalic, Atraumatic, Other - Palpable shunt bulb on the right parietal scalp. Eyes: Normal Pupils: PERRL Neck: Other - Neck is movable but moving the neck and the rotational component and as well as flexing patient states reproduces pain in the posterior aspect of the neck. - Respiratory Respiratory status: No respiratory distress Chest status: Nontender Breath sounds: Normal Chest palpation: Normal - Cardiovascular Rhythm: Tachycardia Heart sounds: Normal auscultation Murmur: No - Abdominal Inspection: Normal Distension: No distension Bowel sounds: Normal Tenderness: Tender, Other - Right lower quadrant tenderness Organomegaly: No organomegaly - Back Back: Normal, Nontender - Extremities General upper extremity: Normal inspection, Nontender, Normal color, Normal ROM , Normal temperature General lower extremity: Normal inspection, Nontender, Normal color, Normal ROM , Normal temperature, Normal weight bearing. No: Nadira's sign - Neurological Neuro grossly intact: Yes Cognition: Normal Orientation: AAOx4 [place] Coma Scale Eye Opening: Spontaneous Jose Rafael Coma Scale Verbal: Oriented Jose Rafael Coma Scale Motor: Obeys Commands Drumright Coma Scale Total: 15 Speech: Normal Motor strength normal: LUE, RUE, LLE, RLE Sensory: Normal Notes: Flexion of the hips causes pain in the neck - Psychological Associated symptoms: Normal affect, Normal mood - Skin Skin Temperature: Warm Skin Moisture: Dry Skin Color: Normal Course - Re-evaluation Re-evalutation: 12/15/17 15:45 There is definitely a concerning presentation. Patient is complaining of a fever at home of 101 with headache, neck stiffness as well as a history of a DISTRICT SALES LEADER shunt and recent ER visit with a complaint of abdominal pain. Patient is now tender in the right lower quadrant. Hopefully this does not represent acute appendicitis with peritonitis and infection leading to infection in the shunt and brain. Patient was explained that that would be my concern at this time. Will prepare for CT had shunt series as well as CT abdomen pelvis to rule out appendicitis and peritonitis. Will prepare as well for LP to rule out meningitis. Will start her on some IV fluids at this time, pain medication, Benadryl, Zofran and reassess. Patient may need transfer to higher level of care if indeed there is any evidence of infection in her shunt as we do not have neurosurgery at this facility. Patient states that she does not have a neurosurgeon in the area that she sees on a regular basis. 12/15/17 18:34 CT abdomen and pelvis with IV and oral contrast unremarkable for anything acute. Head CT unchanged from prior. Chest x-ray unremarkable. Will proceed with LP at this time. 12/15/17 19:58 Attempted LP 2 separate spots but was unsuccessful. Patient has large midline back scar. Will consult with radiology to see if they will do this under fluoroscopy. Radiology recommend a call anesthesia. Dr. barrientos with anesthesia is here. Was able to perform LP. Samples have been sent. Will re-dose her on some pain medication at this time.Patient signed over to Dr. Daugherty for reviwe of labs 12/15/17 19:59 Abdomen/Pelvis CT 12/15/17 15:37 IMPRESSION: NO SIGNIFICANT OR ACUTE FINDING IN THE ABDOMEN OR PELVIS ON CT SCAN WITH IV CONTRAST. Chest X-Ray 12/15/17 15:37 IMPRESSION: NO SIGNIFICANT RADIOGRAPHIC FINDING IN THE CHEST. Head CT 12/15/17 15:37 IMPRESSION: No acute findings EVIDENCE OF ACUTE STROKE: NO. Laboratory 12/15/17 12/15/17 12/15/17 16:43 16:43 16:43 WBC 9.6 RBC 4.63 Hgb 13.0 Hct 38.0 MCV 82 MCH 28.0 MCHC 34.1 RDW 13.6 Plt Count 210 Seg Neutrophils % 60.9 Lymphocytes % 26.3 Monocytes % 6.9 Eosinophils % 5.1 Basophils % 0.8 Absolute Neutrophils 5.9 Absolute Lymphocytes 2.5 Absolute Monocytes 0.7 Absolute Eosinophils 0.5 Absolute Basophils 0.1 Sodium Cancelled Potassium Cancelled Chloride Cancelled Carbon Dioxide Cancelled Anion Gap Cancelled BUN Cancelled Creatinine Cancelled Est GFR ( Amer) Cancelled Est GFR (Non-Af Amer) Cancelled Glucose Cancelled Lactic Acid 0.8 Calcium Cancelled Total Bilirubin Cancelled Direct Bilirubin Cancelled Neonat Total Bilirubin Cancelled Neonat Direct Bilirubin Cancelled Neonat Indirect Bili Cancelled AST Cancelled ALT Cancelled Alkaline Phosphatase Cancelled Total Protein Cancelled Albumin Cancelled Lipase Cancelled Urine Color Urine Appearance Urine pH Ur Specific [place] Urine Protein Urine Glucose (UA) Urine Ketones Urine Blood Urine Nitrite Urine Bilirubin Urine Urobilinogen Ur Leukocyte Esterase Urine WBC (Auto) Urine RBC (Auto) U Hyaline Cast (Auto) Urine Bacteria (Auto) Squamous Epi Cells Auto Urine Mucus (Auto) Urine Ascorbic Acid Urine HCG, Qual 12/15/17 12/15/17 17:14 18:04 WBC RBC Hgb Hct MCV MCH MCHC RDW Plt Count Seg Neutrophils % Lymphocytes % Monocytes % Eosinophils % Basophils % Absolute Neutrophils Absolute Lymphocytes Absolute Monocytes Absolute Eosinophils Absolute Basophils Sodium 142.5 Potassium 3.8 Chloride 109 H Carbon Dioxide 22 Anion Gap 12 BUN 12 Creatinine 0.83 Est GFR ( Amer) > 60 Est GFR (Non-Af Amer) > 60 Glucose 79 Lactic Acid Calcium 9.7 Total Bilirubin 0.3 Direct Bilirubin 0.3 Neonat Total Bilirubin Not Reportable Neonat Direct Bilirubin Not Reportable Neonat Indirect Bili Not Reportable AST 16 ALT 33 Alkaline Phosphatase 57 Total Protein 7.3 Albumin 4.2 Lipase 177.1 Urine Color YELLOW Urine Appearance CLEAR Urine pH 5.0 Ur Specific [place] 1.017 Urine Protein NEGATIVE Urine Glucose (UA) NEGATIVE Urine Ketones NEGATIVE Urine Blood NEGATIVE Urine Nitrite NEGATIVE Urine Bilirubin NEGATIVE Urine Urobilinogen NEGATIVE Ur Leukocyte Esterase TRACE H Urine WBC (Auto) 1 Urine RBC (Auto) 0 U Hyaline Cast (Auto) 1 Urine Bacteria (Auto) TRACE Squamous Epi Cells Auto 3 Urine Mucus (Auto) OCC Urine Ascorbic Acid NEGATIVE Urine HCG, Qual NEGATIVE - Vital Signs Vital signs: Temp Pulse Resp BP Pulse Ox 98.5 F 103 H 12 141/97 H 98 12/15/17 15:03 12/15/17 15:03 12/15/17 15:03 12/15/17 15:03 12/15/17 15:03 - Laboratory Result Diagrams: 12/15/17 16:43 12/15/17 18:04 Laboratory results interpreted by me: 12/15/17 12/15/17 17:14 18:04 Chloride 109 H Ur Leukocyte Esterase TRACE H Procedures - Lumbar Puncture Lumbar puncture Time completed: 20:04 Consent obtained: Yes Lumbar puncture pre-procedure: Sterile PPE donned, Betadine prep applied, Chloraprep applied, Sterile drapes applied Patient position: Sitting Needle size: 20 Anesthetic type: 1% Lidocaine mL's of anesthetic: 10 Amount/type of drainage: 0 Number of attempts: 2 Complications: No Notes: 12/15/17 20:05 Unable to obtain CSF. Procedure abandoned after [address] aquino note for LP procedure and results. Discharge - Discharge Clinical Impression: Headache Qualifiers: Headache type: unspecified Headache chronicity pattern: acute headache Intractability: not intractable Qualified Code(s): R51 - Headache Condition: Good Disposition: HOME, SELF-CARE Instructions: Use of Diphenhydramine, Headache ([facility]), Post Lumbar Puncture ([facility] ) Additional Instructions: Please follow-up with your regular doctor. If symptoms get worse please return immediately. Plenty of fluids. Take all of your regular medications as required.
[2017-12-15] MEDS ORDERED: DIPHENHYDRAMINE HCL 50 MG/ML VIAL IV ONE (15:37)
[2017-12-15] MEDS ORDERED: FENTANYL CITRATE INJ/PF 100 MCG/2 ML AMPUL IV ONE ×2 (15:37→20:04)
[2017-12-15] MEDS ORDERED: ONDANSETRON HCL INJ/PF 4 MG/2 ML SDV IV ONE (15:37)
[2017-12-15] MEDS ORDERED: NORMAL SALINE 1000 ML 1,000 ML IV ONE (15:39)
[2017-12-15 17:10] LABS: ABSOLUTE BASOPHILS # (AUTO) 0.1 10^3/uL (0.0-0.2); ABSOLUTE EOSINOPHILS # (AUTO) 0.5 10^3/uL (0.0-0.6); ABSOLUTE LYMPHOCYTES (AUTO) 2.5 10^3/uL (0.5-4.7); ABSOLUTE MONOCYTES (AUTO) 0.7 10^3/uL (0.1-1.4); ABSOLUTE NEUT (AUTO) 5.9 10^3/uL (1.7-8.2); BASOPHILS % (AUTO) 0.8 % (0-2); EOSINOPHILS % (AUTO) 5.1 % (0-6); LYMPHOCYTES % (AUTO) 26.3 % (13-45); MEAN CORPUSCULAR HGB CONC 34.1 g/dL (32.0-36.0); MEAN CORPUSCULAR VOLUME 82 fl (80-97); MONOCYTES % (AUTO) 6.9 % (3-13); PLATELET COUNT 210 10^3/uL (150-450); RED BLOOD COUNT 4.63 10^6/uL (3.72-5.28); RED CELL DISTRIBUTION WIDTH 13.6 % (11.5-14.0); SEGMENTED NEUTROPHILS % (AUTO) 60.9 % (42-78); TOTAL CELLS COUNTED % (AUTO) 100 %; WHITE BLOOD COUNT 9.6 10^3/uL (4.0-10.5)
[2017-12-15 17:38] LABS: APPEARANCE,URINE CLEAR; BILIRUBIN,URINE NEGATIVE (NEGATIVE); COLOR,URINE YELLOW; GLUCOSE, URINE NEGATIVE (NEGATIVE); KETONES,URINE NEGATIVE (NEGATIVE); LEUKOCYTE ESTERASE,URINE TRACE (NEGATIVE); NITRITE,URINE NEGATIVE (NEGATIVE); PROTEIN,URINE NEGATIVE (NEGATIVE); URINE SPECIFIC GRAVITY 1.017; UROBILINOGEN,URINE NEGATIVE mg/dL (<2.0)
--- NOTE | 2017-12-15 18:26 | RADIOLOGY REPORT (SQ) ---
EXAM DESCRIPTION: CHEST PA/LAT COMPLETED DATE/TIME: 12/15/2017 5:56 pm REASON FOR STUDY: headache with shunt COMPARISON: Two-view chest 10/27/2017 CT angio chest 06/16/2017 EXAM PARAMETERS: NUMBER OF VIEWS: two views TECHNIQUE: Digital Frontal and Lateral radiographic views of the chest acquired. RADIATION DOSE: NA LIMITATIONS: none FINDINGS: LUNGS AND PLEURA: No opacities, masses or pneumothorax. No pleural effusion. MEDIASTINUM AND HILAR STRUCTURES: No masses or contour abnormalities. HEART AND VASCULAR STRUCTURES: Heart normal size. No evidence for failure. BONES: No acute findings. HARDWARE: Faintly radiopaque [employer] shunt tubing over the anterior right chest OTHER: No other significant finding. IMPRESSION: NO SIGNIFICANT RADIOGRAPHIC FINDING IN THE CHEST. TECHNICAL DOCUMENTATION: JOB ID: [id number] [employer]- All Rights Reserved Reading location - IP/workstation name: [email or web address]
--- NOTE | 2017-12-15 18:32 | RADIOLOGY REPORT (SQ) ---
EXAM DESCRIPTION: CT ABD/PELVIS WITH IV ORAL COMPLETED DATE/TIME: 12/15/2017 6:20 pm REASON FOR STUDY: headache with shunt COMPARISON: CT chest 06/16/2017 CT brain 12/15/2017 TECHNIQUE: CT scan of the abdomen and pelvis performed using helical scanning technique with dynamic intravenous contrast injection. Patient drank oral contrast. Images reviewed with lung, soft tissue , and bone windows. Reconstructed coronal and sagittal MPR images reviewed. Delayed images for evalua tion of the urinary system also acquired. All images stored on PACS. All CT scanners at this facility use dose modulation, iterative reconstruction, and/or weight based d osing when appropriate to reduce radiation dose to as low as reasonably achievable (ALARA). [facility]: Dose Right [facility]: CareDose [facility]: Dose Right [facility]: Teradose 4D [facility]: Triporati CONTRAST TYPE AND DOSE: contrast/concentration: Isovue 370.00 mg/ml; Total Contrast Delivered: 100.0 ml; Total Saline Delivered: 72.0 ml RENAL FUNCTION: None required. The patient is less than 50 years old. RADIATION DOSE: CT Rad equipment meets quality standard of care and radiation dose reduction techniq ues were employed. CTDIvol: 9.6 - 14.4 mGy. DLP: 1505 mGy-cm.. LIMITATIONS: None. FINDINGS: LOWER CHEST: No significant findings. No nodules or infiltrates. LIVER: Normal size. No masses. No dilated ducts. SPLEEN: Normal size. No focal lesions. PANCREAS: No masses. No significant calcifications. No adjacent inflammation or peripancreatic fluid collections. Pancreatic duct not dilated. GALLBLADDER: No identified stones by CT criteria. No inflammatory changes to suggest cholecystitis. ADRENAL GLANDS: No significant masses or asymmetry. RIGHT KIDNEY AND URETER: No solid masses. No significant calcifications. No hydronephrosis or hyd roureter. LEFT KIDNEY AND URETER: No solid masses. No significant calcifications. No hydronephrosis or hydr oureter. AORTA AND VESSELS: No aneurysm. No dissection. Renal arteries, SMA, celiac without stenosis. RETROPERITONEUM: No retroperitoneal adenopathy, hemorrhage or masses. BOWEL AND PERITONEAL CAVITY: No masses or inflammatory changes. No free fluid or peritoneal masses. APPENDIX: Normal. PELVIS: No mass. No adenopathy. Normal size uterus and ovaries. Normal bladder. Appropriate physio logic pelvic cul-de-sac fluid ABDOMINAL WALL: No masses. No hernias. BONES: No significant or acute findings. OTHER: There is ventriculoperitoneal shunt tubing, over the anterior chest and abdomen with the tip c oiled in the pelvis. No break in the tubing by CT. IMPRESSION: NO SIGNIFICANT OR ACUTE FINDING IN THE ABDOMEN OR PELVIS ON CT SCAN WITH IV CONTRAST. TECHNICAL DOCUMENTATION: JOB ID: [id number] Quality ID # [id number]: Final reports with documentation of one or more dose reduction techniques (e.g., Au tomated exposure control, adjustment of the mA and/or kV according to patient size, use of iterative reconstruction technique) 2010 [employer]- All Rights Reserved Reading location - IP/workstation name: [email or web address]
--- NOTE | 2017-12-15 18:34 | RADIOLOGY REPORT (SQ) ---
EXAM DESCRIPTION: CT HEAD WITHOUT COMPLETED DATE/TIME: 12/15/2017 6:20 pm REASON FOR STUDY: headache with shunt COMPARISON: CT brain 06/16/2017, 05/23/2017 TECHNIQUE: Axial images acquired through the brain without intravenous contrast. Images reviewed wi th bone, brain and subdural windows. Images stored on PACS. All CT scanners at this facility use dose modulation, iterative reconstruction, and/or weight based d osing when appropriate to reduce radiation dose to as low as reasonably achievable (ALARA). [facility]: Dose Right [facility]: CareDose [facility]: Dose Right [facility]: Teradose 4D [facility]: Smart Technologies RADIATION DOSE: CT Rad equipment meets quality standard of care and radiation dose reduction techniq ues were employed. CTDIvol: 64.6 mGy. DLP: 1163 mGy-cm. mGy. LIMITATIONS: None. FINDINGS: VENTRICLES: Normal size and contour. No hydrocephalus. There is a ventriculoperitoneal s hua present from a right parietal approach, with the catheter tip in the anterior right lateral vent ricle near the foramen of Monro. This is unchanged from prior studies. CEREBRUM: No masses. No hemorrhage. No midline shift. No evidence for acute infarction. Normal gra y/white matter differentiation. No areas of low density in the white matter. CEREBELLUM: No masses. No hemorrhage. No alteration of density. No evidence for acute infarction. 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 Adequate CSF spaces around the medulla and upper cervical spinal cord. EXTRAAXIAL SPACES: No fluid collections. No masses. ORBITS AND GLOBE: No intra- or extraconal masses. Normal contour of globe without masses. CALVARIUM: No acute fracture. Postsurgical changes in the occipital region as above PARANASAL SINUSES: No fluid or mucosal thickening. SOFT TISSUES: No mass or hematoma. OTHER: No other significant finding. IMPRESSION: No acute findings EVIDENCE OF ACUTE STROKE: NO. COMMENT: Quality ID # [id number]: Final reports with documentation of one or more dose reduction techniques (e.g., Automated exposure control, adjustment of the mA and/or kV according to patient size, use of iterative reconstruction technique) TECHNICAL DOCUMENTATION: JOB ID: [id number] [employer]- All Rights Reserved Reading location - IP/workstation name: SENIOR TRAINING [email or web address]
[2017-12-15 18:55] LABS: ALANINE AMINOTRANSFERASE 33 U/L (9-52); ALBUMIN 4.2 g/dL (3.5-5.0); ALKALINE PHOSPHATASE 57 U/L (38-126); ANION GAP 12 (5-19); ASPARTATE AMINO TRANSFERASE 16 U/L (14-36); BILIRUBIN,DIRECT 0.3 mg/dL (0.0-0.4); BILIRUBIN,TOTAL 0.3 mg/dL (0.2-1.3); BLOOD UREA NITROGEN 12 mg/dL (7-20); CALCIUM 9.7 mg/dL (8.4-10.2); CARBON DIOXIDE 22 mmol/L (22-30); CHLORIDE 109 mmol/L (98-107); GLUCOSE 79 mg/dL (75-110); LIPASE 177.1 U/L (23-300); POTASSIUM 3.8 mmol/L (3.6-5.0); SODIUM 142.5 mmol/L (137-145); TOTAL PROTEIN 7.3 g/dL (6.3-8.2)
[2017-12-15] MEDS ORDERED: LIDOCAINE 1% INJ-PF (10 MG/ML) 30 ML SDV ONE ×2 (19:21→19:43)
[2017-12-15] MEDS ORDERED: KETOROLAC TROMETHAMINE INJ/PF 30 MG/1 ML SDV IV ONE (20:04)
[2017-12-15 20:48] LABS: GLUCOSE,CSF 46 mg/dL (40-70); PROTEIN,CSF 59 mg/dL (12-60)
[2017-12-15 20:52] LABS: COLOR ALL TUBES COLORLESS; CSF TUBE NUMBER 1
[2017-12-15 20:53] LABS: APPEARANCE ALL TUBES CLEAR; CSF TOTAL VOLUME 7.4 CC; VOLUME TUBE 1 2.2 CC; VOLUME TUBE 2 2.2 CC; VOLUME TUBE 3 1.2 CC; VOLUME TUBE 4 1.8 CC
[2017-12-15 20:54] LABS: RED BLOOD CELL,CSF 9 /uL (0-10); WHITE BLOOD CELL,CSF 3 /uL (0-5)
[2017-12-15 20:55] LABS: APPEARANCE ALL TUBES CLEAR; COLOR ALL TUBES COLORLESS; CSF TOTAL VOLUME 7.4 CC; CSF TUBE NUMBER 4; VOLUME TUBE 1 2.2 CC; VOLUME TUBE 2 2.2 CC; VOLUME TUBE 3 1.2 CC; VOLUME TUBE 4 1.8 CC
[2017-12-15 20:56] LABS: RED BLOOD CELL,CSF 0 /uL (0-10)
[2017-12-15 20:57] LABS: WHITE BLOOD CELL,CSF 2 /uL (0-5)
[2017-12-15 21:40] VITALS: BP 114/73
== END 2017-12-15 21:25 | disposition home or self-care (01) ==
LOC: ER 14:52
PROC: 009U3ZX Drainage of Spinal Canal, Percutaneous Approach, Diagnostic (ICD-10-PCS; principal; 2017-12-15)
DX: R51 Headache (principal); M54.9 Dorsalgia, unspecified; R10.31 Right lower quadrant pain; R50.9 Fever, unspecified; Z98.2 Presence of cerebrospinal fluid drainage device; Z88.6 Allergy status to analgesic agent; Z91.040 Latex allergy status
CPT/HCPCS: 96376; 99284; 96361; 96374; 96375; 36415; 87040; 87070; 87205; 83690; 85025; 89050; 82945; 84157; 81025; 80053; 81001; 83605; 71046; 70450; 74177; 62270; J1200; J3010; J1885; J2405; J7030

== ENCOUNTER 2018-01-16 17:59 | Emergency (ER) | payer MEDICAID ==
--- NOTE | 2018-01-16 18:35 | ER Document Report ---
ED Medical Screen (RME) - General Chief Complaint: Chest Pain Stated Complaint: CHEST PAIN Time Seen by Provider: 01/16/18 18:26 Notes: Patient has a history of mitral valve prolapse. She states she has some constant chest pain every day but this feels different. She states while sitting quietly in the library she developed a substernal sharp chest pain. She was seen here approximate 1 week ago for an episode of syncope at work. TRAVEL OUTSIDE OF THE [place] IN LAST 30 DAYS: No - Related Data Allergies/Adverse Reactions: codeine Allergy (Verified 01/16/18 18:11) hydrocodone Allergy (Verified 01/16/18 18:11) hydromorphone [From Dilaudid] Allergy (Verified 01/16/18 18:11) latex Allergy (Verified 01/16/18 18:11) morphine Allergy (Verified 01/16/18 18:11) oxycodone Allergy (Verified 01/16/18 18:11) Past Medical History - Social History Frequency of alcohol use: None Drug Abuse: None Renal/ Medical History: Denies: Hx Peritoneal Dialysis Psychiatric Medical History: Reports: Hx Anxiety, Hx Bipolar Disorder, Hx Depression, Hx Post Traumatic Stress Disorder Past Surgical History: Reports: Hx Gynecologic Surgery - ectopic left sided March 2015, Hx 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
[2018-01-16 19:02] LABS: ABSOLUTE BASOPHILS # (AUTO) 0.1 10^3/uL (0.0-0.2); ABSOLUTE EOSINOPHILS # (AUTO) 0.4 10^3/uL (0.0-0.6); ABSOLUTE LYMPHOCYTES (AUTO) 2.7 10^3/uL (0.5-4.7); ABSOLUTE MONOCYTES (AUTO) 0.6 10^3/uL (0.1-1.4); ABSOLUTE NEUT (AUTO) 5.8 10^3/uL (1.7-8.2); BASOPHILS % (AUTO) 0.9 % (0-2); EOSINOPHILS % (AUTO) 4.5 % (0-6); HEMATOCRIT 41.2 % (36.0-47.0); HEMOGLOBIN 14.3 g/dL (12.0-15.5); LYMPHOCYTES % (AUTO) 28.2 % (13-45); MEAN CORPUSCULAR HEMOGLOBIN 28.4 pg (27.0-33.4); MEAN CORPUSCULAR HGB CONC 34.7 g/dL (32.0-36.0); MEAN CORPUSCULAR VOLUME 82 fl (80-97); MONOCYTES % (AUTO) 6.4 % (3-13); PLATELET COUNT 225 10^3/uL (150-450); RED BLOOD COUNT 5.03 10^6/uL (3.72-5.28); RED CELL DISTRIBUTION WIDTH 13.8 % (11.5-14.0); TOTAL CELLS COUNTED % (AUTO) 100 %; WHITE BLOOD COUNT 9.6 10^3/uL (4.0-10.5)
[2018-01-16 19:10] LABS: APPEARANCE,URINE CLOUDY; BILIRUBIN,URINE NEGATIVE (NEGATIVE); COLOR,URINE YELLOW; GLUCOSE, URINE NEGATIVE (NEGATIVE); KETONES,URINE NEGATIVE (NEGATIVE); LEUKOCYTE ESTERASE,URINE MODERATE (NEGATIVE); NITRITE,URINE NEGATIVE (NEGATIVE); PROTEIN,URINE NEGATIVE (NEGATIVE); URINE SPECIFIC GRAVITY 1.016; UROBILINOGEN,URINE NEGATIVE mg/dL (<2.0)
[2018-01-16 19:15] LABS: ALANINE AMINOTRANSFERASE 35 U/L (9-52); ALBUMIN 4.4 g/dL (3.5-5.0); ALKALINE PHOSPHATASE 57 U/L (38-126); ANION GAP 15 (5-19); ASPARTATE AMINO TRANSFERASE 22 U/L (14-36); BILIRUBIN,DIRECT 0.3 mg/dL (0.0-0.4); BILIRUBIN,TOTAL 0.3 mg/dL (0.2-1.3); BLOOD UREA NITROGEN 13 mg/dL (7-20); CALCIUM 10.7 mg/dL (8.4-10.2); CARBON DIOXIDE 21 mmol/L (22-30); CHLORIDE 109 mmol/L (98-107); GLUCOSE 104 mg/dL (75-110); POTASSIUM 4.3 mmol/L (3.6-5.0); SODIUM 144.9 mmol/L (137-145); TOTAL PROTEIN 7.7 g/dL (6.3-8.2)
[2018-01-16] MEDS ORDERED: ASPIRIN 81 MG TABLET, CHEWABLE PO ONE (20:10)
[2018-01-16 20:43] LABS: FREE T3 3.41 pg/mL (2.77-5.27); FREE T4 (FREE THYROXINE) 0.94 ng/dL (0.78-2.19)
--- NOTE | 2018-01-16 20:56 | RADIOLOGY REPORT (SQ) ---
EXAM DESCRIPTION: CHEST SINGLE VIEW COMPLETED DATE/TIME: 01/16/2018 8:48 pm REASON FOR STUDY: chest pain COMPARISON: 01/09/2018 EXAM PARAMETERS: NUMBER OF VIEWS: One view. TECHNIQUE: Single frontal radiographic view of the chest acquired. RADIATION DOSE: NA LIMITATIONS: None. FINDINGS: LUNGS AND PLEURA: No opacities, masses or pneumothorax. No pleural effusion. MEDIASTINUM AND HILAR STRUCTURES: No masses. Contour normal. HEART AND VASCULAR STRUCTURES: Heart normal in size. Normal vasculature. BONES: No acute findings. HARDWARE: None in the chest. OTHER: No other significant finding. IMPRESSION: NO ACUTE RADIOGRAPHIC FINDING IN THE CHEST. TECHNICAL DOCUMENTATION: JOB ID: [id number] [employer]- All Rights Reserved Reading location - IP/workstation name: [email or web address]
[2018-01-16 20:57] LABS: THYROID STIMULATING HORMONE 3.36 uIU/mL (0.47-4.68)
--- NOTE | 2018-01-16 21:35 | ER Document Report ---
ED General - General Chief Complaint: Chest Pain Stated Complaint: CHEST PAIN Time Seen by Provider: 01/16/18 18:26 Notes: 27 yr old female hx of mitral valve prolapse and anxiety who has not been on a beta ashely for past few months presents with complaints chest pain. pt notes it occured while she was at work, felt dizzy and passed out. pt denies any fevers or chills. pt last seen Eliana 2 months ago Patient is a 27-year-old female presents with chief complaint of chest pain. Patient's past medical history significant for anxiety, fibromyalgia, mitral valve prolapse. Follows with Dr. Colmenares. Patient states that she was recently restarted on her metoprolol with this month and due to recent syncopal episode last week had her dose doubled to 25 mg twice a day. States today she was sitting at a library when she had sudden onset sharp stabbing chest pain that was worse with palpation. States she did not take anything prior to arrival. States it is worse in certain positions sitting forward and lying flat lying on her belly. She denies any associated shortness of breath, cough. Denies any recent travel, surgery. Past medical history significant for spina bifida, PTSD, anxiety, bipolar, pituitary adenoma, hypothyroidism Past surgical history significant for brain shunt, tonsils and adenoids, D&C Social history: Denies any tobacco alcohol or drug use. TRAVEL OUTSIDE OF THE [place] IN LAST 30 DAYS: No - Related Data Allergies/Adverse Reactions: codeine Allergy (Verified 01/16/18 18:11) hydrocodone Allergy (Verified 01/16/18 18:11) hydromorphone [From Dilaudid] Allergy (Verified 01/16/18 18:11) latex Allergy (Verified 01/16/18 18:11) morphine Allergy (Verified 01/16/18 18:11) oxycodone Allergy (Verified 01/16/18 18:11) Past Medical History - Social History Smoking Status: Never Smoker Frequency of alcohol use: None Drug Abuse: None Family History: Reviewed & Not Pertinent Patient has suicidal ideation: No Patient has homicidal ideation: No Renal/ Medical History: Denies: Hx Peritoneal Dialysis Psychiatric Medical History: Reports: Hx Anxiety, Hx Bipolar Disorder, Hx Depression, Hx Post Traumatic Stress Disorder Past Surgical History: Reports: Hx Gynecologic Surgery - ectopic left sided March 2015, 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 Denies recent illness. EENT: Denies eye, ear, throat, or mouth pain or symptoms. Denies nasal or sinus congestion or discharge. Denies throat, tongue, or mouth swelling or difficulty swallowing. CARDIOVASCULAR: See HPI. Denies palpitations or racing or irregular heart beat. Denies ankle edema. RESPIRATORY: Denies cough, cold, or chest congestion. Denies shortness of breath, difficulty breathing, or wheezing. GASTROINTESTINAL: Denies abdominal pain or distention. Denies nausea, vomiting , or diarrhea. Denies blood in vomitus, stools, or per rectum. Denies black, tarry stools. Denies constipation. MUSCULOSKELETAL: Denies any muscle spasms, difficulty walking, extremity pain SKIN: Denies rash, lesions or sores. HEMATOLOGIC : Denies easy bruising or bleeding. LYMPHATIC: Denies swollen, enlarged glands. NEUROLOGICAL: Denies confusion or altered mental status. Denies passing out or loss of consciousness. Denies dizziness or lightheadedness. Denies headache. Denies weakness or paralysis or loss of use of either side. Denies problems with gait or speech. Denies sensory loss, numbness, or tingling. Denies seizures. PSYCHIATRIC: Denies anxiety or stress. Denies depression, suicidal ideation, or homicidal ideation. ALL OTHER SYSTEMS REVIEWED AND NEGATIVE. Dictation was performed using [employer] voice recognition software Physical Exam - Vital signs Vitals: Temp Pulse Resp BP Pulse Ox 97.9 F 80 18 122/83 95 01/16/18 18:10 01/16/18 18:10 01/16/18 18:10 01/16/18 18:10 01/16/18 18:10 - Notes Notes: PHYSICAL EXAM GENERAL: Alert, interacts well. HEAD: Normocephalic, atraumatic. EYES: Pupils equal, round, and reactive to light. Extraocular movements intact. ENT: Oral mucosa moist, tongue midline. NECK: Full range of motion. Supple. Trachea midline. LUNGS: Clear to auscultation bilaterally, no wheezes, rales, or rhonchi. No respiratory distress. HEART: Tenderness to palpation o fthe sternum with pain reproducible to palpation. Regular rate and rhythm. No murmurs, gallops, or rubs. ABDOMEN: Soft, nondistended, nontender. No guarding, rebound, or rigidity.. Bowel sounds present in all 4 quadrants. EXTREMITIES: Moves all 4 extremities spontaneously. No edema, radial and dorsalis pedis pulses 2/4 bilaterally. No cyanosis. NEUROLOGICAL: Alert and oriented x4. Normal speech. PSYCH: Normal affect, normal mood. SKIN: Warm, dry, normal turgor. No rashes or lesions noted. Course - Re-evaluation Re-evalutation: 01/16/18 21:39 Patient is a 27-year-old female who is hemodynamically stable, no acute distress afebrile. CBC stable without evidence of leukocytosis or anemia. Electrolytes within normal limits. Troponin negative. EKG without any evidence of change. Chest x-ray does not show any acute cardiopulmonary process. Patient is resting comfortably. Low clinical suspicion for ACS given clinical history, exam, EKG without ST elevations or depressions, and negative initial troponin. HEART score less than or equal to 3. PE also seems unlikely given clinical history, absence of tachycardia or dyspnea. Well's score of 0. CXR without evidence of pneumothorax or pneumonia. No widened mediastinum. Aortic dissection also seems unlikely given history, symmetric pulses, CXR, and vitals. Reviewed case with Dr. Colmenares who is recommending increasing her metoprolol dose and giving her naproxen and will follow up with her in the office tomorrow. At this time will discharge with return precautions and follow-up recommendations. Verbal discharge instructions given a the bedside and opportunity for questions given. Medication warnings reviewed. Patient is in agreement with this plan and has verbalized understanding of return precautions and the need for primary care follow-up in the next 24-72 hours. - Vital Signs Vital signs: Temp Pulse Resp BP Pulse Ox 97.9 F 80 18 122/83 95 01/16/18 18:10 01/16/18 18:10 01/16/18 18:10 01/16/18 18:10 01/16/18 18:10 - Laboratory Result Diagrams: 01/16/18 18:50 01/16/18 18:50 Laboratory results interpreted by me: 01/16/18 01/16/18 18:50 18:50 Chloride 109 H Carbon Dioxide 21 L Calcium 10.7 H Urine Blood MODERATE H Ur Leukocyte Esterase MODERATE H - Diagnostic Test Radiology reviewed: Image reviewed, Reports reviewed - EKG Interpretation by Me EKG shows normal: Sinus rhythm Rate: Normal Rhythm: NSR When compared to previous EKG there are: No significant change Discharge - Discharge Clinical Impression: Chest pain, Mitral valve prolapse Condition: Good Disposition: HOME, SELF-CARE Additional Instructions: Your presentation today is consistent with your underlying mitral valve prolapse but as well as chest wall pain given that you are tender on exam. Please take the Aleve as prescribed and taking her metoprolol as follows. Take 50 mg in the morning and 25 mg at night. Please follow-up with Dr. Colmenares tomorrow on January 17 for repeat evaluation and evaluation for need for further testing. Prescriptions: Naproxen 250 mg PO ASDIR PRN #20 tablet PRN Reason: Forms: Return to Work Referrals: TRAY MILES DO [Primary Care Provider] - Follow up as needed JOI COLMENARES MD [ACTIVE STAFF] - Follow up tomorrow VICKY DELANEY MD [EMERITUS] - Follow up as needed (Cardiology)
[2018-01-16] MEDS ORDERED: NAPROXEN 250 MG TABLET PO ONE (21:44)
[2018-01-16 21:51] VITALS: BP 126/98
--- NOTE | 2018-01-16 22:35 | EKG REPORT ---
SEVERITY:- NORMAL ECG - SINUS RHYTHM : Confirmed by: Peng Monroy 16-Jan-2018 22:33:56
== END 2018-01-16 21:51 | disposition home or self-care (01) ==
LOC: ER 17:59
DX: I34.1 Nonrheumatic mitral (valve) prolapse (principal); R07.9 Chest pain, unspecified; F41.9 Anxiety disorder, unspecified; R42 Dizziness and giddiness; R55 Syncope and collapse; M79.7 Fibromyalgia; Z79.899 Other long term (current) drug therapy
CPT/HCPCS: 93005; 99285; 36415; 84439; 84443; 85025; 81025; 80053; 81001; 84484; 84481; 71045; 93010; J3490

== ENCOUNTER 2018-01-24 12:13 | Emergency (ER) | payer MEDICAID ==
--- NOTE | 2018-01-24 13:33 | ER Document Report ---
ED ENT - General Chief Complaint: Ear Pain Stated Complaint: EAR PAIN Time Seen by Provider: 01/24/18 12:25 Mode of Arrival: Ambulatory Information source: Patient TRAVEL OUTSIDE OF THE [place] IN LAST 30 DAYS: No - HPI Patient complains to provider of: Ear problem Notes: Patient is here with complaints of right ear pain. She states the pain is been for the last few days. Pain is worse with touching her ear. Nothing seems to make it better. She denies any recent swimming. No drainage from the ear. No fever. No nausea, vomiting, diarrhea. No headache. No blurred or loss vision. No rash. No injury. No fever. No other complaints at this time. - Related Data Allergies/Adverse Reactions: codeine Allergy (Verified 01/16/18 18:11) hydrocodone Allergy (Verified 01/16/18 18:11) hydromorphone [From Dilaudid] Allergy (Verified 01/16/18 18:11) latex Allergy (Verified 01/16/18 18:11) morphine Allergy (Verified 01/16/18 18:11) oxycodone Allergy (Verified 01/16/18 18:11) Past Medical History - Social History Smoking Status: Never Smoker Chew tobacco use (# tins/day): No Frequency of alcohol use: Occasional Drug Abuse: None Family History: Reviewed & Not Pertinent Patient has suicidal ideation: No Patient has homicidal ideation: No Renal/ Medical History: Denies: Hx Peritoneal Dialysis Psychiatric Medical History: Reports: Hx Anxiety, Hx Bipolar Disorder, Hx Depression, Hx Post Traumatic Stress Disorder Past Surgical History: Reports: Hx Gynecologic Surgery - ectopic left sided March 2015, 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 HEAD: normocephalic, atraumatic EYES: conjunctiva pink without discharge, no external redness or swelling. EARS: no external swelling, no external redness, no mastoid redness, swelling, tenderness. Right ear canal with swelling, erythema. No drainage. Tenderness to palpation of the tragus. TMs pearly gracia, no redness, no bulging, normal landmarks, no perforation. NOSE: atraumatic, no external swelling. clear rhinorrhea noted. MOUTH/THROAT: mucous membranes moist and pink, posterior pharynx without erythema, swelling, exudate. No trismus or drooling. NECK: soft, supple, full range of motion, no meningismus. CHEST: no distress, lungs clear and equal throughout. No wheezing, rales, rhonchi. CARDIAC: regular rate and rhythm, no murmur, normal capillary refill, normal pulses. No peripheral edema noted. BACK: full range of motion, no CVA tenderness. EXTREMITIES: full range of motion of all extremities. No redness, no swelling. NEURO: alert and oriented A&O3, no focal deficits, full range of motion of all extremities. PYSCH: appropriate mood, affect. Patient is cooperative. SKIN: pink, warm, dry, no rash. Course - Re-evaluation Re-evalutation: 01/24/18 13:34 Patient is nontoxic appearing with stable vitals. She is here with complaints of right ear pain. No fever. On exam she has a right otitis externa. There is no sign of mastoiditis. She will be discharged home with Ciprodex eardrops as well as tramadol as needed for pain. Follow-up for worsening pain, fever, redness, drainage, persistent vomiting, or for any further concerns. The patient's emergency department workup and current diagnosis were explained to the patient and or family. Follow-up instructions were provided. Medications if prescribed were discussed. Instructions for when to return to the emergency department including specific worrisome symptoms were discussed with the patient and/or family. - Vital Signs Vital signs: Temp Pulse Resp BP Pulse Ox 98.3 F 108 H 18 114/77 97 01/24/18 12:16 01/24/18 12:16 01/24/18 12:16 01/24/18 12:16 01/24/18 12:16 Discharge - Discharge Clinical Impression: Right otitis externa Qualifiers: Otitis externa type: other infective Chronicity: acute Qualified Code(s): H60.391 - Other infective otitis externa, right ear Condition: Stable Disposition: HOME, SELF-CARE Instructions: Use of Ear Drops ([facility]), Otitis Externa ([facility]), Oral Narcotic Medication ([facility]) Additional Instructions: Take medication as prescribed. Follow-up if not improving in the next 2-3 days , sooner for increasing pain, fever, redness around the outside of the ear, persistent vomiting, or for any further concerns. The medication you were prescribed today may cause drowsiness. Do not drive or operate heavy machinery while taking this medication. Prescriptions: Ciprofloxacin HCl/Dexameth [Ciprodex Otic Suspension 7.5 ml Bottle] 4 drop OT BID #1 bottle Tramadol HCl 50 mg PO TID PRN #10 tablet PRN Reason: Forms: Smoking Cessation Education Referrals: EPI DURAND MD [Primary Care Provider] - Follow up as needed
[2018-01-24 13:47] VITALS: BP 106/73
== END 2018-01-24 13:48 | disposition home or self-care (01) ==
LOC: ER 12:13
DX: H60.391 Other infective otitis externa, right ear (principal); H92.01 Otalgia, right ear
CPT/HCPCS: 99282

== ENCOUNTER 2018-02-03 11:08 | Emergency (ER) | payer MEDICAID ==
[2018-02-03] MEDS ORDERED: ACETAMINOPHEN 325 MG TABLET PO ONE (11:53)
[2018-02-03] MEDS ORDERED: ONDANSETRON 4 MG TAB.RAPDIS PO ONE (11:53)
--- NOTE | 2018-02-03 11:54 | ER Document Report ---
ED Medical Screen (RME) - General Chief Complaint: Pelvic Pain Stated Complaint: ABDOMINAL PAIN Time Seen by Provider: 02/03/18 11:50 Notes: 27-year-old female patient with left pelvic pain for the past few days getting worse with some nausea and vomiting. She is nauseous now. She started vaginal bleeding yesterday. Her last menstrual period was 01/18/2018 and was reportedly normal and on time. I have greeted and performed a rapid initial assessment of this patient. A comprehensive ED assessment and evaluation of the patient, analysis of test results and completion of the medical decision making process will be conducted by additional ED providers. TRAVEL OUTSIDE OF THE [place] IN LAST 30 DAYS: No - Related Data Allergies/Adverse Reactions: codeine Allergy (Verified 02/03/18 11:09) hydrocodone Allergy (Verified 02/03/18 11:09) hydromorphone [From Dilaudid] Allergy (Verified 02/03/18 11:09) latex Allergy (Verified 02/03/18 11:09) morphine Allergy (Verified 02/03/18 11:09) oxycodone Allergy (Verified 02/03/18 11:09) Past Medical History Renal/ Medical History: Denies: Hx Peritoneal Dialysis Psychiatric Medical History: Reports: Hx Anxiety, Hx Bipolar Disorder, Hx Depression, Hx Post Traumatic Stress Disorder Past Surgical History: Reports: Hx Gynecologic Surgery - ectopic left sided March 2015, Hx Neurologic Surgery - [employer] shunt placement for hydrocephalus, Hx Tonsillectomy - Immunizations Hx Diphtheria, Pertussis, Tetanus Vaccination: Yes Physical Exam - Vital signs Vitals: Temp Pulse Resp BP Pulse Ox 98.3 F 92 19 119/80 97 02/03/18 11:12 02/03/18 11:12 02/03/18 11:12 02/03/18 11:12 02/03/18 11:12 Course - Vital Signs Vital signs: Temp Pulse Resp BP Pulse Ox 98.3 F 92 19 119/80 97 02/03/18 11:12 02/03/18 11:12 02/03/18 11:12 02/03/18 11:12 02/03/18 11:12
[2018-02-03 12:38] LABS: ABSOLUTE BASOPHILS # (AUTO) 0.1 10^3/uL (0.0-0.2); ABSOLUTE EOSINOPHILS # (AUTO) 0.6 10^3/uL (0.0-0.6); ABSOLUTE LYMPHOCYTES (AUTO) 2.4 10^3/uL (0.5-4.7); ABSOLUTE MONOCYTES (AUTO) 0.4 10^3/uL (0.1-1.4); ABSOLUTE NEUT (AUTO) 3.7 10^3/uL (1.7-8.2); APPEARANCE,URINE CLEAR; BASOPHILS % (AUTO) 0.8 % (0-2); BILIRUBIN,URINE NEGATIVE (NEGATIVE); COLOR,URINE YELLOW; EOSINOPHILS % (AUTO) 7.8 % (0-6); GLUCOSE, URINE NEGATIVE (NEGATIVE); HEMATOCRIT 40.2 % (36.0-47.0); KETONES,URINE NEGATIVE (NEGATIVE); LEUKOCYTE ESTERASE,URINE NEGATIVE (NEGATIVE); LYMPHOCYTES % (AUTO) 34.3 % (13-45); MEAN CORPUSCULAR HEMOGLOBIN 28.2 pg (27.0-33.4); MEAN CORPUSCULAR HGB CONC 34.7 g/dL (32.0-36.0); MEAN CORPUSCULAR VOLUME 81 fl (80-97); MONOCYTES % (AUTO) 5.8 % (3-13); NITRITE,URINE NEGATIVE (NEGATIVE); PLATELET COUNT 201 10^3/uL (150-450); PROTEIN,URINE NEGATIVE (NEGATIVE); RED BLOOD COUNT 4.95 10^6/uL (3.72-5.28); RED CELL DISTRIBUTION WIDTH 13.3 % (11.5-14.0); SEGMENTED NEUTROPHILS % (AUTO) 51.3 % (42-78); TOTAL CELLS COUNTED % (AUTO) 100 %; URINE SPECIFIC GRAVITY 1.016; UROBILINOGEN,URINE NEGATIVE mg/dL (<2.0); WHITE BLOOD COUNT 7.1 10^3/uL (4.0-10.5)
[2018-02-03 12:58] LABS: ALANINE AMINOTRANSFERASE 27 U/L (9-52); ALBUMIN 4.3 g/dL (3.5-5.0); ALKALINE PHOSPHATASE 52 U/L (38-126); ANION GAP 14 (5-19); ASPARTATE AMINO TRANSFERASE 20 U/L (14-36); BILIRUBIN,DIRECT 0.2 mg/dL (0.0-0.4); BILIRUBIN,TOTAL 0.3 mg/dL (0.2-1.3); BLOOD UREA NITROGEN 13 mg/dL (7-20); CALCIUM 10.3 mg/dL (8.4-10.2); CARBON DIOXIDE 21 mmol/L (22-30); CHLORIDE 109 mmol/L (98-107); GLUCOSE 99 mg/dL (75-110); POTASSIUM 4.5 mmol/L (3.6-5.0); TOTAL PROTEIN 7.6 g/dL (6.3-8.2)
--- NOTE | 2018-02-03 14:21 | RADIOLOGY REPORT (SQ) ---
EXAM DESCRIPTION: U/S NON OB PEL W/DOPPLER COMPLETED DATE/TIME: 02/03/2018 2:10 pm REASON FOR STUDY: llq pain COMPARISON: 04/07/2017 TECHNIQUE: Dynamic and static grayscale images acquired of the pelvis via transvaginal approach and recorded on PACS. Additional selected color Doppler and spectral images recorded. LIMITATIONS: None. FINDINGS: UTERUS: Contour normal. No mass. ENDOMETRIAL STRIPE: No focal or generalized thickening. No masses. CERVIX: No nabothian cysts. RIGHT ADNEXUM: Ovary not visualized. LEFT ADNEXUM: Ovary not visualized. LEFT OVARY AND DOPPLER: Normal size. No worrisome masses. Normal arterial vascular flow without evide nce for torsion. FREE FLUID: Mild to moderate free fluid. OTHER: No other significant finding. MEASUREMENTS: UTERUS: 7.8 x 4.1 x 5.0 cm. ENDOMETRIAL STRIPE: 11 mm. RIGHT OVARY: Not visualized. LEFT OVARY: Not visualized. IMPRESSION: MILD TO MODERATE FREE FLUID IN THE PELVIS. NORMAL UTERUS ENDOMETRIUM. OVARIES NOT VISU ALIZED. TECHNICAL DOCUMENTATION: JOB ID: [id number] [employer]- All Rights Reserved Reading location - IP/workstation name: [email or web address]
--- NOTE | 2018-02-03 14:26 | ER Document Report ---
ED General - General Chief Complaint: Pelvic Pain Stated Complaint: ABDOMINAL PAIN Time Seen by Provider: 02/03/18 11:50 TRAVEL OUTSIDE OF THE [place] IN LAST 30 DAYS: No - HPI Patient complains to provider of: Left lower quadrant abdominal pain Notes: Patient coming in for left lower quadrant abdominal pain lower pelvic pain ongoing for the last 4 days. Patient denies any vaginal discharge states that she is having some vaginal bleeding patient does have a NuvaRing in. Patient denies fevers chills nausea vomiting diarrhea. Patient resting comfortably upon my evaluation denies any trauma. Patient is unaware of her status. - Related Data Allergies/Adverse Reactions: codeine Allergy (Verified 02/03/18 11:09) hydrocodone Allergy (Verified 02/03/18 11:09) hydromorphone [From Dilaudid] Allergy (Verified 02/03/18 11:09) latex Allergy (Verified 02/03/18 11:09) morphine Allergy (Verified 02/03/18 11:09) oxycodone Allergy (Verified 02/03/18 11:09) Past Medical History - Social History Smoking Status: Never Smoker Frequency of alcohol use: Occasional Drug Abuse: None Family History: Reviewed & Not Pertinent Patient has suicidal ideation: No Patient has homicidal ideation: No Renal/ Medical History: Denies: Hx Peritoneal Dialysis Psychiatric Medical History: Reports: Hx Anxiety, Hx Bipolar Disorder, Hx Depression, Hx Post Traumatic Stress Disorder Past Surgical History: Reports: Hx Gynecologic Surgery - ectopic left sided March 2015, Hx Neurologic Surgery - 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, Hx Tonsillectomy - Immunizations Hx Diphtheria, Pertussis, Tetanus Vaccination: Yes Review of Systems - Review of Systems Constitutional: No symptoms reported EENT: No symptoms reported Cardiovascular: No symptoms reported Respiratory: No symptoms reported Gastrointestinal: Abdominal pain Genitourinary: No symptoms reported Female Genitourinary: Vaginal bleeding Musculoskeletal: No symptoms reported Skin: No symptoms reported Hematologic/Lymphatic: No symptoms reported Neurological/Psychological: No symptoms reported -: Yes All other systems reviewed and negative Physical Exam - Vital signs Vitals: Temp Pulse Resp BP Pulse Ox 98.3 F 92 19 119/80 97 02/03/18 11:12 02/03/18 11:12 02/03/18 11:12 02/03/18 11:12 02/03/18 11:12 Interpretation: Normal - General General appearance: Appears well, Alert - HEENT Head: Normocephalic, Atraumatic Eyes: Normal Pupils: PERRL - Respiratory Respiratory status: No respiratory distress Chest status: Nontender Breath sounds: Normal Chest palpation: Normal - Cardiovascular Rhythm: Regular Heart sounds: Normal auscultation Murmur: No - Abdominal Inspection: Normal Distension: No distension Bowel sounds: Normal Tenderness: Nontender Organomegaly: No organomegaly - Back Back: Normal, Nontender - Extremities General upper extremity: Normal inspection, Nontender, Normal color, Normal ROM , Normal temperature General lower extremity: Normal inspection, Nontender, Normal color, Normal ROM , Normal temperature, Normal weight bearing. No: Nadira's sign - Neurological Neuro grossly intact: Yes Cognition: Normal Orientation: AAOx4 Jose Rafael Coma Scale Eye Opening: Spontaneous [place] Coma Scale Verbal: Oriented [place] Coma Scale Motor: Obeys Commands [place] Coma Scale Total: 15 Speech: Normal Motor strength normal: LUE, RUE, LLE, RLE Sensory: Normal - Psychological Associated symptoms: Normal affect, Normal mood - Skin Skin Temperature: Warm Skin Moisture: Dry Skin Color: Normal Course - Re-evaluation Re-evalutation: 02/03/18 16:17 Free fluid within the pelvis more likely consistent with a rupture cyst. Left ovary does show signs of flow on the ultrasound report. Patient otherwise resting comfortably no critical pathology seen will discharge patient home - Vital Signs Vital signs: Temp Pulse Resp BP Pulse Ox 98.3 F 90 16 106/69 98 02/03/18 11:12 02/03/18 14:35 02/03/18 14:35 02/03/18 14:35 02/03/18 14:35 - Laboratory Result Diagrams: 02/03/18 12:08 02/03/18 12:08 Laboratory results interpreted by me: 02/03/18 02/03/18 02/03/18 12:08 12:08 12:08 Eosinophils % 7.8 H Chloride 109 H Carbon Dioxide 21 L Calcium 10.3 H Urine Blood MODERATE H Discharge - Discharge Clinical Impression: left pelvic pain Condition: Good Disposition: HOME, SELF-CARE Instructions: Abdominal Pain ([facility]), Pelvic Pain ([facility]) Additional Instructions: Your ultrasound does not show any signs of significant pathology. There is a little bit of free fluid within the pelvis which is possibly consistent with a rupture of an ovarian cyst. This can cause irritation and abdominal lining and cause pain. Treatment for this irritation is anti-inflammatory medication such as Motrin or Naprosyn may also take Tylenol for pain. There is no other worrisome etiology using ultrasound to believe your bleeding is more likely breakthrough bleeding or dysfunctional uterine bleeding. I recommend she follow -up with EMERGENCY MANAGEMENT PROGRAM SPECIALIST return to ER symptoms worsen. Prescriptions: Ibuprofen [Motrin 800 mg Tablet] 800 mg PO Q8H PRN #30 tab PRN Reason: Ondansetron [Zofran Odt] 4 mg PO Q6 PRN #30 tab.rapdis PRN Reason: For Nausea/Vomiting Forms: Return to Work Referrals: JUDIT CONN PA-C [Primary Care Provider] - Follow up as needed
[2018-02-03 15:23] VITALS: BP 106/69
== END 2018-02-03 14:35 | disposition home or self-care (01) ==
LOC: ER 11:08
DX: R10.2 Pelvic and perineal pain (principal); R10.32 Left lower quadrant pain; Z88.6 Allergy status to analgesic agent; Z91.040 Latex allergy status; Z98.2 Presence of cerebrospinal fluid drainage device
CPT/HCPCS: 99284; 36415; 84703; 85025; 80053; 81001; 76856; 93976; J3490; S0119

== ENCOUNTER 2018-02-07 19:55 | Emergency (ER) | payer MEDICAID ==
[2018-02-07] MEDS ORDERED: TRAMADOL HCL 50 MG TABLET PO ONE (20:12)
--- NOTE | 2018-02-07 20:13 | ER Document Report ---
ED Medical Screen (RME) - General Chief Complaint: Pelvic Pain Stated Complaint: PELVIC PAIN Time Seen by Provider: 02/07/18 20:09 Notes: Patient is a 27-year-old female who presents with abdominal pain. Seen here 5 days ago about possible ruptured cyst. Taking ibuprofen without much relief her symptoms. Now having some vaginal bleeding. Has a NuvaRing in place. PE: LLQ tenderness. No CVA tenderness. I have greeted and performed a rapid initial assessment of this patient. A comprehensive ED assessment and evaluation of the patient, analysis of test results and completion of the medical decision making process will be conducted by additional ED providers. TRAVEL OUTSIDE OF THE [place] IN LAST 30 DAYS: No - Related Data Allergies/Adverse Reactions: codeine Allergy (Verified 02/03/18 11:09) hydrocodone Allergy (Verified 02/03/18 11:09) hydromorphone [From Dilaudid] Allergy (Verified 02/03/18 11:09) latex Allergy (Verified 02/03/18 11:09) morphine Allergy (Verified 02/03/18 11:09) oxycodone Allergy (Verified 02/03/18 11:09) Past Medical History Renal/ Medical History: Denies: Hx Peritoneal Dialysis Psychiatric Medical History: Reports: Hx Anxiety, Hx Bipolar Disorder, Hx Depression, Hx Post Traumatic Stress Disorder Past Surgical History: Reports: Hx Gynecologic Surgery - ectopic left sided March 2015, 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
[2018-02-07 20:34] LABS: AMORPHOUS SEDIMENT,URINE TRACE /HPF; APPEARANCE,URINE SLIGHTLY-CLOUDY; BILIRUBIN,URINE NEGATIVE (NEGATIVE); COLOR,URINE YELLOW; GLUCOSE, URINE NEGATIVE (NEGATIVE); KETONES,URINE NEGATIVE (NEGATIVE); LEUKOCYTE ESTERASE,URINE LARGE (NEGATIVE); NITRITE,URINE NEGATIVE (NEGATIVE); PROTEIN,URINE NEGATIVE (NEGATIVE); URINE SPECIFIC GRAVITY 1.018
[2018-02-07] MEDS ORDERED: KETOROLAC TROMETHAMINE 60 MG/2 ML SDV IM ONE (21:36)
[2018-02-07] MEDS ORDERED: PROMETHAZINE HCL 25 MG TABLET PO ONE (21:36)
--- NOTE | 2018-02-07 21:38 | ER Document Report ---
ED GI/ - General Chief Complaint: Pelvic Pain Stated Complaint: PELVIC PAIN Time Seen by Provider: 02/07/18 20:09 Notes: Patient is a 27-year-old female who comes emergency department for chief complaint of pain in her left lower abdomen/pelvic area. She also states she threw up this morning and last night. She denies flank pain. She states she was seen about 5 days ago, had an ultrasound, was told she probably had a ruptured or hemorrhagic ovarian cyst at that time. She states bleeding almost resolved but then increased yesterday along with her pain. LMP was last month. She uses the NuvaRing, does not have it currently in. She denies dysuria, fever, she reports mild current nausea. She denies any past medical history or daily medications. TRAVEL OUTSIDE OF THE [place] IN LAST 30 DAYS: No - Related Data Allergies/Adverse Reactions: codeine Allergy (Verified 02/03/18 11:09) hydrocodone Allergy (Verified 02/03/18 11:09) hydromorphone [From Dilaudid] Allergy (Verified 02/03/18 11:09) latex Allergy (Verified 02/03/18 11:09) morphine Allergy (Verified 02/03/18 11:09) oxycodone Allergy (Verified 02/03/18 11:09) Past Medical History - General Information source: Patient - Social History Smoking Status: Never Smoker Chew tobacco use (# tins/day): No Frequency of alcohol use: None Drug Abuse: None Lives with: Family Family History: Reviewed & Not Pertinent Patient has suicidal ideation: No Patient has homicidal ideation: No Renal/ Medical History: Denies: Hx Peritoneal Dialysis Psychiatric Medical History: Reports: Hx Anxiety, Hx Bipolar Disorder, Hx Depression, Hx Post Traumatic Stress Disorder Past Surgical History: Reports: Hx Gynecologic Surgery - ectopic left sided March 2015, 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, Hx Tonsillectomy - Immunizations Hx Diphtheria, Pertussis, Tetanus Vaccination: Yes Review of Systems - Review of Systems Constitutional: No symptoms reported EENT: No symptoms reported Cardiovascular: No symptoms reported Respiratory: No symptoms reported Gastrointestinal: See HPI Genitourinary: See HPI Female Genitourinary: See HPI Musculoskeletal: No symptoms reported Skin: No symptoms reported Hematologic/Lymphatic: No symptoms reported Neurological/Psychological: No symptoms reported Physical Exam - Vital signs Vitals: Temp Pulse Resp BP Pulse Ox 98.0 F 84 17 110/78 97 02/07/18 19:59 02/07/18 19:59 02/07/18 19:59 02/07/18 19:59 02/07/18 19:59 Interpretation: Normal - General General appearance: Appears well In distress: None - HEENT Head: Normocephalic, Atraumatic Eyes: Normal Pupils: PERRL - Respiratory Respiratory status: No respiratory distress Chest status: Nontender Breath sounds: Normal Chest palpation: Normal - Cardiovascular Rhythm: Regular Heart sounds: Normal auscultation Murmur: No - Abdominal Inspection: Normal Distension: No distension Bowel sounds: Normal Tenderness: Tender - There is tenderness generally in the lower abdomen and suprapubic area, nonspecific, no guarding, no rigidity Organomegaly: No organomegaly - Genitourinary External exam: Normal Speculum exam: Cervix closed, Vaginal discharge - Minimal. No: Cervix open Vaginal bleeding: None Bimanuel exam: No: Cervical motion tender Notes: Cristino RN present during exam - Back Back: Normal, Nontender. No: Tender, CVA tenderness - Extremities General upper extremity: Normal inspection, Nontender, Normal color, Normal ROM , Normal temperature General lower extremity: Normal inspection, Nontender, Normal color, Normal ROM , Normal temperature, Normal weight bearing. No: Nadira's sign - Neurological Neuro grossly intact: Yes Cognition: Normal Orientation: AAOx4 Jose Rafael Coma Scale Eye Opening: Spontaneous Jose Rafael Coma Scale Verbal: Oriented [place] Coma Scale Motor: Obeys Commands [place] Coma Scale Total: 15 Speech: Normal Motor strength normal: LUE, RUE, LLE, RLE Sensory: Normal - Psychological Associated symptoms: Normal affect, Normal mood - Skin Skin Temperature: Warm Skin Moisture: Dry Skin Color: Normal Course - Re-evaluation Re-evalutation: Patient with some general lower abdominal tenderness, no guarding, exam not suggestive of acute abdomen, patient well-appearing. Vital signs unremarkable. Urinalysis does suggest urinary tract infection along with suprapubic tenderness suggesting cystitis. Patient not currently bleeding but is reporting intermittent dysfunctional uterine bleeding. test is negative. Pelvic exam is unremarkable. Ultrasound shows no concerning abnormalities. Discussed results including ultrasound with patient in detail, discussed dysfunctional uterine bleeding, she declines treatment for it because she wants to get , patient will be treated for urinary tract infection, discussed follow-up with JOB SUPERINTENDENT, discussed return precautions, patient states understanding and agreement. - Vital Signs Vital signs: Temp Pulse Resp BP Pulse Ox 98.1 F 84 18 124/84 100 02/07/18 23:23 02/07/18 23:23 02/07/18 23:23 02/07/18 23:23 02/07/18 23:23 - Laboratory Laboratory results interpreted by me: 02/07/18 20:20 Urine Blood SMALL H Urine Urobilinogen 2.0 H Ur Leukocyte Esterase LARGE H Discharge - Discharge Clinical Impression: Lower abdominal pain, Vaginal bleeding Condition: Stable Disposition: HOME, SELF-CARE Additional Instructions: Your test is negative, your ultrasound does not show any concerning abnormalities, your workup and exam do indicate a bladder infection. The exact cause of your dysfunctional uterine bleeding is uncertain. Recommendation is to take the antibiotics as prescribed, take the Diflucan afterwards to avoid yeast infection, take the ketorolac if needed for pain/cramping, and follow-up with JOB SUPERINTENDENT for additional evaluation and management. See additional instructions below. Dysfunctional Uterine Bleeding You're having an abnormal pattern of bleeding from the uterus. We call this dysfunctional uterine bleeding. It is most often caused by a hormone imbalance. Most often this is temporary and no cause is found. There's no evidence of , tumors, or infection as a cause. Dysfunctional uterine bleeding is especially common at times when the normal menstrual cycle is disturbed -- whether by recent , use of control pills or hormones, or impending menopause. Some medical problems lead to dysfunctional bleeding, such as obesity or being very underweight, stress, or thyroid problems. In many cases, the menstrual cycle will return to normal without any treatment. Where the bleeding is significant, high-dose estrogen will usually stop the bleeding within a day of two. A cycle or two of hormones ( control pills) can help restore the uterus to normal. In some patients where bleeding is severe or resistant to treatment, a D&C is required. A endometrial biopsy (a sample of the inside of the uterus) may be recommended for some older women. This would be done by a gynecology specialist. Treatment for anemia may be required if bleeding is severe. You should rest and avoid intercourse until the bleeding is controlled. Call the doctor or return for re-examination if you feel faint, have increasing pain, or have a major increase in the amount of bleeding. Prescriptions: Ketorolac Tromethamine [Toradol 10 mg Tablet] 10 mg PO Q8HP PRN #30 tablet PRN Reason: Cephalexin Monohydrate [Keflex 500 mg Capsule] 500 mg PO BID #10 capsule Fluconazole [Diflucan] 150 mg PO ONCE PRN #1 tablet PRN Reason: Forms: Treatment of Relative/Child Referrals: EPI DURAND MD [Primary Care Provider] - Follow up as needed [facility] [Provider Group] - Follow up as needed
--- NOTE | 2018-02-07 22:05 | RADIOLOGY REPORT (SQ) ---
EXAM DESCRIPTION: U/S NON OB PEL TV W/DOPPLER COMPLETED DATE/TIME: 02/07/2018 9:56 pm REASON FOR STUDY: left pelvic pain COMPARISON: 02/03/2018 TECHNIQUE: Dynamic and static grayscale images acquired of the pelvis via transvaginal approach and recorded on PACS. Additional selected color Doppler and spectral images recorded. LIMITATIONS: None. FINDINGS: UTERUS: Contour normal. No mass. ENDOMETRIAL STRIPE: No focal or generalized thickening. No masses. CERVIX: 3 cm. No nabothian cysts appear RIGHT OVARY AND DOPPLER: Ovary not seen. LEFT OVARY AND DOPPLER: Ovary not seen. FREE FLUID: A small amount of free fluid is seen in the posterior cul-de-sac. OTHER: No other significant finding. MEASUREMENTS: UTERUS: 8 x 4.2 x 5.5 cm. ENDOMETRIAL STRIPE: 12 mm. RIGHT OVARY: Ovary not seen. LEFT OVARY: Ovary not seen. IMPRESSION: Normal transvaginal pelvic ultrasound. There was a small amount of free fluid in the po sterior cul-de-sac. TECHNICAL DOCUMENTATION: JOB ID: [id number]- All Rights Reserved Rev-02/15 Reading location - IP/workstation name: [email or web address]
[2018-02-07 22:32] LABS: T.VAGINALIS (WET MOUNT) NO TRICHOMONAS SEEN; WBCS (WET MOUNT) 1+ WBCS SEEN; YEAST (WET MOUNT) NO YEAST SEEN
[2018-02-07 23:24] VITALS: BP 124/84
[2018-02-07 23:54] LABS: CHLAM PCR NOT DETECTED (NOT DETECT); GON PCR NOT DETECTED (NOT DETECT)
== END 2018-02-07 23:24 | disposition home or self-care (01) ==
LOC: ER 19:55
DX: N93.8 Other specified abnormal uterine and vaginal bleeding (principal); R10.2 Pelvic and perineal pain; R10.32 Left lower quadrant pain; Z88.6 Allergy status to analgesic agent; Z91.040 Latex allergy status; Z98.2 Presence of cerebrospinal fluid drainage device
CPT/HCPCS: 99284; 96372; 87210; 81025; 81001; 87491; 87591; 76830; 93976; J1885; J3490

== ENCOUNTER 2018-04-16 15:26 | Emergency (ER) | payer MEDICAID ==
--- NOTE | 2018-04-16 16:17 | ER Document Report ---
ED Medical Screen (RME) - General Chief Complaint: Pelvic Pain Stated Complaint: PELVIC PAIN, VOMITING Time Seen by Provider: 04/16/18 16:09 Notes: RAPID MEDICAL EVALUATION DISCLOSURE I have seen this patient as part of a Rapid Medical Evaluation and, if applicable, placed any initially appropriate orders. The patient will be seen and fully evaluated, including a full history and physical exam, by a provider ( in Main ED or Fast Track) when a room becomes available. 27-year-old female here with complaints of left lower quadrant abdominal/pelvic pain that started 1 week ago. Yesterday evening she started to have some dysuria. This morning she started to have nausea and vomiting multiple times. She has been taking naproxen for the symptoms with not much relief. She has a history of ovarian cysts several months ago. EXAM Mild left lower quadrant TTP No peritoneal signs TRAVEL OUTSIDE OF THE [place] IN LAST 30 DAYS: No - Related Data Allergies/Adverse Reactions: codeine Allergy (Verified 02/03/18 11:09) hydrocodone Allergy (Verified 02/03/18 11:09) hydromorphone [From Dilaudid] Allergy (Verified 02/03/18 11:09) latex Allergy (Verified 02/03/18 11:09) morphine Allergy (Verified 02/03/18 11:09) oxycodone Allergy (Verified 02/03/18 11:09) Past Medical History Renal/ Medical History: Denies: Hx Peritoneal Dialysis Psychiatric Medical History: Reports: Hx Anxiety, Hx Bipolar Disorder, Hx Depression, Hx Post Traumatic Stress Disorder Past Surgical History: Reports: Hx Gynecologic Surgery - ectopic left sided March 2015, 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
[2018-04-16 16:41] LABS: APPEARANCE,URINE SLIGHTLY-CLOUDY; BILIRUBIN,URINE NEGATIVE (NEGATIVE); COLOR,URINE YELLOW; GLUCOSE, URINE NEGATIVE (NEGATIVE); KETONES,URINE NEGATIVE (NEGATIVE); LEUKOCYTE ESTERASE,URINE TRACE (NEGATIVE); NITRITE,URINE NEGATIVE (NEGATIVE); PROTEIN,URINE NEGATIVE (NEGATIVE); URINE SPECIFIC GRAVITY 1.024
--- NOTE | 2018-04-16 17:30 | RADIOLOGY REPORT (SQ) ---
EXAM DESCRIPTION: U/S NON OB PEL TV W/DOPPLER COMPLETED DATE/TIME: 04/16/2018 5:18 pm REASON FOR STUDY: LLQ pain; eval torsion cyst toa etc COMPARISON: January 2018 TECHNIQUE: Dynamic and static grayscale images acquired of the pelvis via transvaginal approach and recorded on PACS. Additional selected color Doppler and spectral images recorded. LIMITATIONS: None. FINDINGS: UTERUS: Contour normal. No mass. ENDOMETRIAL STRIPE: No focal or generalized thickening. No masses. CERVIX: No nabothian cysts. RIGHT OVARY AND DOPPLER: Right ovary was not visualized. LEFT OVARY AND DOPPLER: Left ovary was not visualize. FREE FLUID: Small amount of free fluid is identified in the posterior cul-de-sac OTHER: No other significant finding. MEASUREMENTS: UTERUS: 7.5 x 4.3 cm in diameters. ENDOMETRIAL STRIPE: 1.8 mm in thickness RIGHT OVARY: Not visualized LEFT OVARY: Not visualized IMPRESSION: Somewhat limited study as noted above. Neither ovary was visualize. Small amount of fr ee fluid was identified in the posterior cul-de-sac. Other findings as noted above TECHNICAL DOCUMENTATION: JOB ID: [id number]- All Rights Reserved Rev-02/15 Reading location - IP/workstation name: [email or web address]
--- NOTE | 2018-04-16 17:33 | ER Document Report ---
ED General - General Chief Complaint: Pelvic Pain Stated Complaint: PELVIC PAIN, VOMITING Time Seen by Provider: 04/16/18 16:09 TRAVEL OUTSIDE OF THE [place] IN LAST 30 DAYS: No - HPI Notes: Patient is a 27-year-old female who presents to the ED complaining of left lower pelvic pain that began 1 week ago. Patient states the pain has been relatively constant and does not radiate. Patient states that she did start to have nausea and vomiting over the last day and states that she did vomit 4 times today that did not contain any blood. Patient states that she has not had any other abdominal pain aside from the left lower pelvic area. She is still able to drink some fluids, but does have decreased p.o. intake. She is urinating normally and having normal bowel movements. She has not had any vaginal discharge, odor, or bleeding. Denies any headache, fever, URI, sore throat, chest pain, palpitations, syncope, cough, shortness of breath, wheeze, dyspnea, diarrhea, urinary retention, dysuria, hematuria, back pain, loss of control of bowel or bladder, numbness/tingling, saddle anesthesia, muscle paralysis/weakness, or rash. - Related Data Allergies/Adverse Reactions: codeine Allergy (Verified 02/03/18 11:09) hydrocodone Allergy (Verified 02/03/18 11:09) hydromorphone [From Dilaudid] Allergy (Verified 02/03/18 11:09) latex Allergy (Verified 02/03/18 11:09) morphine Allergy (Verified 02/03/18 11:09) oxycodone Allergy (Verified 02/03/18 11:09) Past Medical History - Social History Smoking Status: Never Smoker Family History: Reviewed & Not Pertinent Patient has suicidal ideation: No Patient has homicidal ideation: No Renal/ Medical History: Denies: Hx Peritoneal Dialysis Psychiatric Medical History: Reports: Hx Anxiety, Hx Bipolar Disorder, Hx Depression, Hx Post Traumatic Stress Disorder Past Surgical History: Reports: Hx Gynecologic Surgery - ectopic left sided March 2015, Hx Neurologic Surgery - [employer] shunt placement for hydrocephalus, Hx Tonsillectomy - Immunizations Hx Diphtheria, Pertussis, Tetanus Vaccination: Yes Review of Systems - Review of Systems -: Yes All other systems reviewed and negative Physical Exam - Vital signs Vitals: Temp Pulse Resp BP Pulse Ox 98.5 F 102 H 18 122/81 97 07/17/18 15:31 04/16/18 15:31 04/16/18 15:31 04/16/18 15:31 04/16/18 15:31 - Notes Notes: PHYSICAL EXAMINATION: GENERAL: Well-appearing, well-nourished and in no acute distress. HEAD: Atraumatic, normocephalic. EYES: Pupils equal round and reactive to light, extraocular movements intact, conjunctiva are normal. ENT: Nares patent, oropharynx clear without exudates. Moist mucous membranes. No tonsillar hypertrophy or erythema. NECK: Normal range of motion, supple without lymphadenopathy LUNGS: Breath sounds clear to auscultation bilaterally and equal. No wheezes rales or rhonchi. HEART: Regular rate and rhythm without murmurs ABDOMEN: Soft, nondistended abdomen. No guarding, no rebound. No masses appreciated. Normal bowel sounds present. CVA tenderness negative bilaterally. + mild tenderness lt lower pelvic. Abd still soft in that area. Female : No inguinal adenopathy or obvious hernia. External genitalia without erythema, lesions, or masses. Vaginal mucosa pink with scant white discharge. Cervix parous, pink, and without discharge. Uterus is smooth. No adnexal tenderness. Musculoskeletal: FROM to passive/active. Strength 5+/5. Extremities: No cyanosis/clubbing/edema b/l. Peripheral pulses 2+. Capillary refill less than 3 seconds. NEUROLOGICAL: Normal speech, normal gait. PSYCH: Normal mood, normal affect. SKIN: Warm, Dry, normal turgor, no rashes or lesions noted. Course - Re-evaluation Re-evalutation: 04/16/18 18:09 Patient is an afebrile, well-hydrated, 27-year-old female who presents to the ED with pelvic pain unspecified. Vitals are acceptable without any significant tachycardia, tachypnea, or hypoxia. PE is otherwise unremarkable. Urinalysis and hCG are unremarkable for any acute pathology. See wet mount results. Chlam /gonorrhea tests are pending. Patient declined wanting any treatment for chlamydia/gonorrhea at this time and is aware that she may have the return if any test comes back positive. Patient is nontoxic-appearing is tolerating p.o. without any difficulties. Transvaginal ultrasound was also unremarkable for any acute pathology. No other labs or imaging warranted at this time based on H &P. I did review this case with Dr. Galloway to further clarify on ultrasound is not seeing ovaries and ovarian torsion concerns. He states that when the ovaries are not seen on ultrasound that usually means that the ovaries are very small and ovarian torsion likelihood is close to 0. He states that if she continues to have pain that they usually will perform a laparoscopic procedure to further evaluate, but recommends observation and follow-up with [employer]. Low suspicion/risk for acute appendicitis, bowel obstruction, acute cholecystitis, acute cholangitis, perforated diverticulitis, incarcerated hernia, pancreatitis , perforated ulcer, peritonitis, sepsis, pelvic inflammatory disease, ectopic , tubo-ovarian abscess, ovarian torsion, or other systemic emergent condition at this time. Patient is aware that her condition can change from initial presentation and she needs to monitor symptoms closely and seek medical attention if any acute changes. Zofran Rx. Conservative measures otherwise for symptoms. Recheck with your PCM/OBGYN in 2-3 days. Return to the ED with any worsening/concerning symptoms otherwise as reviewed in discharge. Patient is in agreement. - Vital Signs Vital signs: Temp Pulse Resp BP Pulse Ox 98.5 F 102 H 18 122/81 97 04/16/18 15:31 04/16/18 15:31 04/16/18 15:31 04/16/18 15:31 04/16/18 15:31 - Laboratory Laboratory results interpreted by me: 04/16/18 16:20 Urine Urobilinogen 2.0 H Ur Leukocyte Esterase TRACE H Procedures - Pelvic Exam Pelvic exam Time completed: 17:35 Cultures obtained: Yes Wet prep obtained: Yes Bimanual exam performed: Yes - neg Witnessed by: ELIANE Stephanie Discharge - Discharge Clinical Impression: Pelvic pain Condition: Stable Disposition: HOME, SELF-CARE Instructions: Pelvic Pain ([facility]) Additional Instructions: Maintain fluid intake Proper hygenic technique Keep the skin clean Safe sexual practices with condoms everytime Tylenol/ibuprofen as needed Check in with the health department this week for further testing if warranted Your chlamydia/Ghon test are pending and you will be notified if positive results; you may call in 1 day for the results as well You have been given follow up instructions including low cost follow up with one of the local primary care offices. Follow up with them tomorrow for further care and reevaluation. Return immediately if symptoms worsen F/u with your PCM/OBGYN in 3-5 days for a recheck Return to the ED with any development of MORFIN/fever, trouble with vision, eye redness, worsening pain, urethral discharge, urinary retention, blood in the urine, flank pain, abdominal pain, n/v, Chest Pain, shortness of breath, joint pains, trouble breathing, or any other worsening/concerning symptoms as needed otherwise. Prescriptions: Ondansetron [Zofran Odt 4 mg Tablet] 1 - 2 tab PO Q4H PRN #15 tab.rapdis PRN Reason: For Nausea/Vomiting Referrals: [facility] [Provider Group] - Follow up in 3-5 days
[2018-04-16 18:03] LABS: BACTERIA (WET MOUNT) 3+ BACTERIA SEEN; T.VAGINALIS (WET MOUNT) NO TRICHOMONAS SEEN; WBCS (WET MOUNT) 3+ WBCS SEEN; YEAST (WET MOUNT) NO YEAST SEEN
[2018-04-16 18:23] VITALS: BP 108/75
[2018-04-16 19:30] LABS: CHLAM PCR NOT DETECTED (NOT DETECT); GON PCR NOT DETECTED (NOT DETECT)
== END 2018-04-16 18:23 | disposition home or self-care (01) ==
LOC: ER 15:26
DX: R10.2 Pelvic and perineal pain (principal); R11.10 Vomiting, unspecified; Z88.6 Allergy status to analgesic agent; Z91.040 Latex allergy status
CPT/HCPCS: 76830; 81001; 81025; 87210; 87491; 87591; 93976; 99284

== ENCOUNTER 2018-04-19 11:07 | Emergency (ER) | payer MEDICAID ==
[2018-04-19] MEDS ORDERED: ONDANSETRON 4 MG TAB.RAPDIS SL ONE (11:23)
--- NOTE | 2018-04-19 11:25 | ER Document Report ---
ED Medical Screen (RME) - General Chief Complaint: Pelvic Pain Stated Complaint: LEFT SIDE PAIN Time Seen by Provider: 04/19/18 11:14 Mode of Arrival: Wheelchair Information source: Patient TRAVEL OUTSIDE OF THE [place] IN LAST 30 DAYS: No - HPI Patient complains to provider of: Left-sided pelvic Notes: 04/19/18 11:24 Patient is a 27-year-old female presenting to the emergency room today complaining of left-sided pelvic pain that has been going on for the past week, was seen in this emergency department recently and had a pelvic ultrasound done which did not visualize the left ovary, has a history of ovarian cysts in the past, also reports nausea and vomiting - Related Data Allergies/Adverse Reactions: codeine Allergy (Verified 04/19/18 11:11) hydrocodone Allergy (Verified 04/19/18 11:11) hydromorphone [From Dilaudid] Allergy (Verified 04/19/18 11:11) latex Allergy (Verified 04/19/18 11:11) morphine Allergy (Verified 04/19/18 11:11) oxycodone Allergy (Verified 04/19/18 11:11) Past Medical History Renal/ Medical History: Denies: Hx Peritoneal Dialysis Psychiatric Medical History: Reports: Hx Anxiety, Hx Bipolar Disorder, Hx Depression, Hx Post Traumatic Stress Disorder Past Surgical History: Reports: Hx Gynecologic Surgery - ectopic left sided March 2015, 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
[2018-04-19 12:10] LABS: ABSOLUTE BASOPHILS # (AUTO) 0.1 10^3/uL (0.0-0.2); ABSOLUTE EOSINOPHILS # (AUTO) 0.6 10^3/uL (0.0-0.6); ABSOLUTE LYMPHOCYTES (AUTO) 2.3 10^3/uL (0.5-4.7); ABSOLUTE MONOCYTES (AUTO) 0.7 10^3/uL (0.1-1.4); ABSOLUTE NEUT (AUTO) 4.7 10^3/uL (1.7-8.2); BASOPHILS % (AUTO) 0.9 % (0-2); EOSINOPHILS % (AUTO) 7.7 % (0-6); HEMOGLOBIN 13.6 g/dL (12.0-15.5); LYMPHOCYTES % (AUTO) 27.7 % (13-45); MEAN CORPUSCULAR HEMOGLOBIN 28.4 pg (27.0-33.4); MEAN CORPUSCULAR HGB CONC 34.8 g/dL (32.0-36.0); MEAN CORPUSCULAR VOLUME 82 fl (80-97); MONOCYTES % (AUTO) 7.9 % (3-13); PLATELET COUNT 192 10^3/uL (150-450); RED BLOOD COUNT 4.77 10^6/uL (3.72-5.28); RED CELL DISTRIBUTION WIDTH 13.9 % (11.5-14.0); SEGMENTED NEUTROPHILS % (AUTO) 55.8 % (42-78); TOTAL CELLS COUNTED % (AUTO) 100 %; WHITE BLOOD COUNT 8.3 10^3/uL (4.0-10.5)
[2018-04-19 12:22] LABS: APPEARANCE,URINE CLEAR; BILIRUBIN,URINE NEGATIVE (NEGATIVE); COLOR,URINE YELLOW; GLUCOSE, URINE NEGATIVE (NEGATIVE); KETONES,URINE NEGATIVE (NEGATIVE); LEUKOCYTE ESTERASE,URINE TRACE (NEGATIVE); NITRITE,URINE NEGATIVE (NEGATIVE); PROTEIN,URINE NEGATIVE (NEGATIVE); URINE SPECIFIC GRAVITY 1.016; UROBILINOGEN,URINE NEGATIVE mg/dL (<2.0)
[2018-04-19 12:35] LABS: ALANINE AMINOTRANSFERASE 44 U/L (9-52); ALBUMIN 4.3 g/dL (3.5-5.0); ALKALINE PHOSPHATASE 47 U/L (38-126); ANION GAP 13 (5-19); ASPARTATE AMINO TRANSFERASE 33 U/L (14-36); BILIRUBIN,DIRECT 0.4 mg/dL (0.0-0.4); BILIRUBIN,TOTAL 0.6 mg/dL (0.2-1.3); BLOOD UREA NITROGEN 14 mg/dL (7-20); CALCIUM 9.9 mg/dL (8.4-10.2); CARBON DIOXIDE 23 mmol/L (22-30); CHLORIDE 108 mmol/L (98-107); GLUCOSE 98 mg/dL (75-110); LIPASE 119.9 U/L (23-300); POTASSIUM 4.6 mmol/L (3.6-5.0); SODIUM 144.1 mmol/L (137-145); TOTAL PROTEIN 7.6 g/dL (6.3-8.2)
[2018-04-19] MEDS ORDERED: METOCLOPRAMIDE HCL INJ/PF 10 MG/2 ML SDV IV ONE (14:16)
[2018-04-19] MEDS ORDERED: DIPHENHYDRAMINE HCL 50 MG/ML VIAL IV ONE ×2 (14:16→19:00)
[2018-04-19] MEDS ORDERED: NORMAL SALINE 1000 ML 1,000 ML IV ONE (14:16)
[2018-04-19] MEDS ORDERED: MORPHINE SULFATE 10 MG/ML INJ IV ONE ×2 (14:16→19:00)
--- NOTE | 2018-04-19 18:49 | RADIOLOGY REPORT (SQ) ---
EXAM DESCRIPTION: CT ABD/PELVIS WITH IV ORAL COMPLETED DATE/TIME: 04/19/2018 6:14 pm REASON FOR STUDY: sharp worsening llq pain, n/v COMPARISON: CT abdomen and pelvis 12/15/2017 TECHNIQUE: CT scan of the abdomen and pelvis performed using helical scanning technique with dynamic intravenous contrast injection and with oral contrast. Images reviewed with lung, soft tissue, and b one windows. Reconstructed coronal and sagittal MPR images reviewed. Delayed images for evaluation of the urinary system also acquired. All images stored on PACS. All CT scanners at this facility use dose modulation, iterative reconstruction, and/or weight based d osing when appropriate to reduce radiation dose to as low as reasonably achievable (ALARA). [facility]: Dose Right [facility]: CareDose [facility]: Dose Right [facility]: Teradose 4D [facility]: CorpU CONTRAST TYPE AND DOSE: contrast/concentration: Isovue 370.00 mg/ml; Total Contrast Delivered: 100.0 ml; Total Saline Delivered: 41.0 ml RENAL FUNCTION: Creatinine 0.82 RADIATION DOSE: CT Rad equipment meets quality standard of care and radiation dose reduction techniq ues were employed. CTDIvol: 21.0 - 21.1 mGy. DLP: 2726 mGy-cm.. LIMITATIONS: None. FINDINGS: LOWER CHEST: There is trace left pleural effusion. Mild bibasilar atelectasis. There is trace pericardial effusion. LIVER: Diffuse decreased attenuation, suggestive of fatty infiltration peer Normal size. No masses. No dilated ducts. SPLEEN: Normal size. PANCREAS: No significant calcifications. No adjacent inflammation or peripancreatic fluid collections . Pancreatic duct not dilated. GALLBLADDER: No identified stones by CT criteria. No inflammatory changes to suggest cholecystitis. ADRENAL GLANDS: No significant masses or asymmetry. RIGHT KIDNEY AND URETER: No solid masses. No significant calcifications. No hydronephrosis or hyd roureter. LEFT KIDNEY AND URETER: No solid masses. No significant calcifications. No hydronephrosis or hydr oureter. AORTA AND VESSELS: No abdominal aortic aneurysm. RETROPERITONEUM: No retroperitoneal adenopathy, hemorrhage or masses. BOWEL AND PERITONEAL CAVITY: No dilated bowel loops or focal inflammatory changes. No evidence for b owel obstruction. Moderate amount of stool at the colon. No free fluid or free air. A ventriculope ritoneal shunt catheter is present. APPENDIX: Normal. PELVIS: The urinary bladder is partially distended. The uterus is present. There is trace free pelv ic fluid. ABDOMINAL WALL: Ventricular shunt catheter courses along the anterior abdominal wall and enters the p eritoneal cavity in the left upper quadrant. BONES: No acute findings. Postsurgical changes are noted at the spine. IMPRESSION: 1. No evidence for bowel obstruction. Moderate amount of stool at the colon. 2. Fatty infiltration of the liver. 3. Trace free pelvic fluid. 4. Trace left pleural effusion. Mild bibasilar atelectasis. 5. Trace pericardial effusion. TECHNICAL DOCUMENTATION: JOB ID: [id number] [place]- Quality ID # [id number]: Final reports with documentation of one or more dose reduction techniques (e.g., Au tomated exposure control, adjustment of the mA and/or kV according to patient size, use of iterative reconstruction technique) 2010 [employer]- All Rights Reserved Reading location - IP/workstation name: [email or web address]
--- NOTE | 2018-04-19 18:55 | ER Document Report ---
ED GI/ - General Chief Complaint: Pelvic Pain Stated Complaint: LEFT SIDE PAIN Time Seen by Provider: 04/19/18 11:14 Mode of Arrival: Wheelchair Information source: Patient Notes: Pt is a 27 year old female who presents to the ER for worsening llq abdominal pain since being seen here for it on the . She had an ultrasound at that time, but didn't really visualize the ovaries. She turned down CT that visit, but is back today for the CT as pain has sharpened and now she has nausea and 3 episodes of vomiting. She denies fever, diarrhea. She states she's had hard "rabbit like" bowel movements, today was her last one. She denies any abnormal vaginal discharge, dysuria or history of kidney stones. She has a hx of ovarian cysts. TRAVEL OUTSIDE OF THE [place] IN LAST 30 DAYS: No - Related Data Allergies/Adverse Reactions: codeine Allergy (Verified 04/19/18 11:11) hydrocodone Allergy (Verified 04/19/18 11:11) hydromorphone [From Dilaudid] Allergy (Verified 04/19/18 11:11) latex Allergy (Verified 04/19/18 11:11) morphine Allergy (Verified 04/19/18 11:11) oxycodone Allergy (Verified 04/19/18 11:11) Past Medical History - General Information source: Patient - Social History Smoking Status: Never Smoker Chew tobacco use (# tins/day): No Frequency of alcohol use: None Drug Abuse: None Family History: Reviewed & Not Pertinent Patient has suicidal ideation: No Patient has homicidal ideation: No Renal/ Medical History: Denies: Hx Peritoneal Dialysis Psychiatric Medical History: Reports: Hx Anxiety, Hx Bipolar Disorder, Hx Depression, Hx Post Traumatic Stress Disorder Past Surgical History: Reports: Hx Gynecologic Surgery - ectopic left sided March 2015, 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, Hx Tonsillectomy - Immunizations Hx Diphtheria, Pertussis, Tetanus Vaccination: Yes Review of Systems - Review of Systems Constitutional: No symptoms reported EENT: No symptoms reported Cardiovascular: No symptoms reported Respiratory: No symptoms reported Gastrointestinal: See HPI Genitourinary: No symptoms reported Female Genitourinary: No symptoms reported Musculoskeletal: No symptoms reported Skin: No symptoms reported Hematologic/Lymphatic: No symptoms reported Neurological/Psychological: No symptoms reported Physical Exam - Vital signs Vitals: Temp Pulse Resp BP Pulse Ox 98.5 F 91 20 132/91 H 97 04/19/18 11:19 04/19/18 11:19 04/19/18 11:19 04/19/18 11:19 04/19/18 11:19 - Notes Notes: PHYSICAL EXAMINATION: GENERAL: uncomfortable appearing, but in no acute distress. HEAD: Atraumatic, normocephalic. EYES: Pupils equal round and reactive to light, extraocular movements intact, sclera anicteric, conjunctiva are normal. ENT: airway patent NECK: Normal range of motion, supple without lymphadenopathy LUNGS: CTAB and equal. No wheezes rales or rhonchi. HEART: Regular rate and rhythm without murmurs ABDOMEN: Soft, llq tenderness. No guarding, no rebound BACK: no vertebral tenderness, normal ROM GI/: no CVA tenderness EXTREMITIES: Normal range of motion, no pitting edema. No cyanosis. NEUROLOGICAL: Cranial nerves grossly intact. Normal sensory/motor exams. PSYCH: Normal mood, normal affect. SKIN: Warm, Dry, normal turgor, no rashes or lesions noted Course - Re-evaluation Re-evalutation: 04/19/18 13:[address] abd pelvis with IV and oral reveals some mild free pelvic fluid, no ovarian cyst, no diverticulitis, does reveal also some moderate stool in colon. I will start pt on stool softener and provider her with motrin, have her follow up with obgyn. - Vital Signs Vital signs: Temp Pulse Resp BP Pulse Ox 98.0 F 70 18 128/88 H 98 04/19/18 19:36 04/19/18 19:36 04/19/18 19:36 04/19/18 19:36 04/19/18 19:36 - Laboratory Result Diagrams: 04/19/18 11:29 04/19/18 11:29 Laboratory results interpreted by me: 04/19/18 04/19/18 04/19/18 11:29 11:29 11:29 Eosinophils % 7.7 H Chloride 108 H Ur Leukocyte Esterase TRACE H Discharge - Discharge Clinical Impression: LLQ pain Constipation Qualifiers: Constipation type: unspecified constipation type Qualified Code(s): K59.00 - Constipation, unspecified Condition: Stable Disposition: HOME, SELF-CARE Additional Instructions: Return immediately for any new or worsening symptoms. Follow up with primary care provider, call tomorrow to make followup appointment. Prescriptions: Docusate Sodium 100 mg PO DAILY #30 Ibuprofen [Motrin 800 mg Tablet] 800 mg PO Q8H PRN #30 tab PRN Reason: Referrals: JUDIT CONN PA-C [Primary Care Provider] - Follow up as needed
[2018-04-19 19:54] VITALS: BP 128/88
== END 2018-04-19 19:54 | disposition home or self-care (01) ==
LOC: ER 11:07
DX: K59.00 Constipation, unspecified (principal); R10.32 Left lower quadrant pain; R11.2 Nausea with vomiting, unspecified; Z87.42 Personal history of other diseases of the female genital tract; Z88.5 Allergy status to narcotic agent; Z91.040 Latex allergy status; Z87.59 Personal history of other complications of pregnancy, childbirth and the puerperium
CPT/HCPCS: 96376; 99284; 96374; 96375; 36415; 87086; 84702; 83690; 85025; 80053; 81001; 74177; J1200; J2765; J2270; J7030; 96361

== ENCOUNTER 2018-04-27 16:00 | Emergency (ER) | payer MEDICAID ==
[2018-04-27] MEDS ORDERED: ONDANSETRON 4 MG TAB.RAPDIS PO ONE (16:30)
--- NOTE | 2018-04-27 16:33 | ER Document Report ---
ED Medical Screen (RME) - General Chief Complaint: Abdominal Pain Stated Complaint: ABDOMINAL PAIN, VAGINAL BLEEDING Time Seen by Provider: 04/27/18 16:29 Mode of Arrival: Ambulatory Information source: Patient Notes: This is a 27-year-old female who was seen on the and of this month for pelvic pain and presents to the emergency room with persistent symptoms. Patient states she has had intermittent bleeding. She denies any vaginal discharge. She states she was told she has a ruptured cyst but the pain has not gotten any better. She denies any fever, chills. She reports nausea and vomiting. TRAVEL OUTSIDE OF THE [place] IN LAST 30 DAYS: No - Related Data Allergies/Adverse Reactions: codeine Allergy (Verified 04/27/18 16:00) hydrocodone Allergy (Verified 04/27/18 16:00) hydromorphone [From Dilaudid] Allergy (Verified 04/27/18 16:00) latex Allergy (Verified 04/27/18 16:00) morphine Allergy (Verified 04/27/18 16:00) oxycodone Allergy (Verified 04/27/18 16:00) Past Medical History - Social History Chew tobacco use (# tins/day): No Frequency of alcohol use: None Drug Abuse: None Renal/ Medical History: Denies: Hx Peritoneal Dialysis Psychiatric Medical History: Reports: Hx Anxiety, Hx Bipolar Disorder, Hx Depression, Hx Post Traumatic Stress Disorder Past Surgical History: Reports: Hx Gynecologic Surgery - ectopic left sided March 2015, 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
[2018-04-27 17:03] LABS: ABSOLUTE BASOPHILS # (AUTO) 0.1 10^3/uL (0.0-0.2); ABSOLUTE EOSINOPHILS # (AUTO) 0.6 10^3/uL (0.0-0.6); ABSOLUTE LYMPHOCYTES (AUTO) 2.6 10^3/uL (0.5-4.7); ABSOLUTE MONOCYTES (AUTO) 0.7 10^3/uL (0.1-1.4); ABSOLUTE NEUT (AUTO) 5.3 10^3/uL (1.7-8.2); EOSINOPHILS % (AUTO) 6.6 % (0-6); HEMATOCRIT 39.3 % (36.0-47.0); HEMOGLOBIN 13.6 g/dL (12.0-15.5); LYMPHOCYTES % (AUTO) 28.3 % (13-45); MEAN CORPUSCULAR HEMOGLOBIN 28.3 pg (27.0-33.4); MEAN CORPUSCULAR HGB CONC 34.6 g/dL (32.0-36.0); MEAN CORPUSCULAR VOLUME 82 fl (80-97); MONOCYTES % (AUTO) 7.3 % (3-13); PLATELET COUNT 217 10^3/uL (150-450); RED BLOOD COUNT 4.79 10^6/uL (3.72-5.28); RED CELL DISTRIBUTION WIDTH 14.2 % (11.5-14.0); SEGMENTED NEUTROPHILS % (AUTO) 56.8 % (42-78); TOTAL CELLS COUNTED % (AUTO) 100 %; WHITE BLOOD COUNT 9.3 10^3/uL (4.0-10.5)
[2018-04-27 17:17] LABS: APPEARANCE,URINE CLOUDY; BILIRUBIN,URINE NEGATIVE (NEGATIVE); COLOR,URINE YELLOW; GLUCOSE, URINE NEGATIVE (NEGATIVE); KETONES,URINE NEGATIVE (NEGATIVE); LEUKOCYTE ESTERASE,URINE LARGE (NEGATIVE); NITRITE,URINE NEGATIVE (NEGATIVE); PROTEIN,URINE NEGATIVE (NEGATIVE); URINE SPECIFIC GRAVITY 1.024
[2018-04-27 17:22] LABS: ALANINE AMINOTRANSFERASE 71 U/L (9-52); ALBUMIN 4.2 g/dL (3.5-5.0); ALKALINE PHOSPHATASE 56 U/L (38-126); ANION GAP 15 (5-19); ASPARTATE AMINO TRANSFERASE 48 U/L (14-36); BILIRUBIN,DIRECT 0.3 mg/dL (0.0-0.4); BILIRUBIN,TOTAL 0.4 mg/dL (0.2-1.3); BLOOD UREA NITROGEN 18 mg/dL (7-20); CALCIUM 9.7 mg/dL (8.4-10.2); CARBON DIOXIDE 21 mmol/L (22-30); CHLORIDE 107 mmol/L (98-107); GLUCOSE 107 mg/dL (75-110); POTASSIUM 4.1 mmol/L (3.6-5.0); SODIUM 142.9 mmol/L (137-145); TOTAL PROTEIN 7.7 g/dL (6.3-8.2)
--- NOTE | 2018-04-27 18:19 | ER Document Report ---
HPI - HPI Pain Level: 5 Notes: Patient is a 27-year-old female with no significant past medical history who presents to the ED complaining of burning with urination, suprapubic pressure, urgency, and soreness in her bilateral flanks 2-3 days. 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 Patient had a complete evaluation between the 2 appointments with unremarkable results at that time. Patient states that she does have nausea currently and a decreased p.o. intake. She is having normal bowel movements. Patient states that the pain has otherwise remained unchanged since her previous appointments. 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 Patient states that she is scheduled this Sunday for her primary care doctor. Denies any headache, fever, URI, sore throat, chest pain, palpitations, syncope, cough, shortness of breath , wheeze, dyspnea, vomiting/diarrhea, loss of control of bowel or bladder, numbness/tingling, saddle anesthesia, muscle paralysis/weakness, or rash. - ROS Systems Reviewed and Negative: Yes All other systems reviewed and negative - DERM Skin Color: Normal, [place] Past Medical History - General Information source: Patient - Social History Smoking Status: Never Smoker Chew tobacco use (# tins/day): No Frequency of alcohol use: None Drug Abuse: None Family History: Reviewed & Not Pertinent Patient has suicidal ideation: No Patient has homicidal ideation: No Renal/ Medical History: Denies: Hx Peritoneal Dialysis Psychiatric Medical History: Reports: Hx Anxiety, Hx Bipolar Disorder, Hx Depression, Hx Post Traumatic Stress Disorder Past Surgical History: Reports: Hx Gynecologic Surgery - ectopic left sided March 2015, Hx Neurologic Surgery - 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 HEAD: Atraumatic, normocephalic. EYES: Pupils equal round and reactive to light, extraocular movements intact, sclera anicteric, conjunctiva are normal. ENT: Nares patent and without discharge. oropharynx clear without exudates. No tonsilar hypertrophy or erythema. Moist mucous membranes. NECK: Normal range of motion, supple without lymphadenopathy LUNGS: Breath sounds clear to auscultation bilaterally and equal. No wheezes rales or rhonchi. HEART: Regular rate and rhythm without murmurs, rubs, gallops. ABDOMEN: Soft, nondistended abdomen. No guarding, no rebound. No masses appreciated. Normal bowel sounds present. + mild CVA tenderness bilaterally. + mild tenderness to the suprapubic area, correlates with pain described. Musculoskeletal: FROM to passive/active. Strength 5+/5. Extremities: No cyanosis, clubbing, or edema b/l. Peripheral pulses 2+. Capillary refill less than 3 seconds. NEUROLOGICAL: Normal speech, normal gait. PSYCH: Normal mood, normal affect. SKIN: Warm, Dry, normal turgor, no rashes or lesions noted. - INFECTION CONTROL TRAVEL OUTSIDE OF THE [place] IN LAST 30 DAYS: No Course - Re-evaluation Re-evalutation: 04/27/18 18:51 Patient is an afebrile, well-hydrated, 27-year-old female who presents to the ED with an acute UTI. Vitals are acceptable without any significant tachycardia , tachypnea, or hypoxia. PE is otherwise unremarkable. CBC, CMP, hCG were unremarkable for acute pathology. See urinalysis results. Urine culture is pending. Patient is nontoxic-appearing is tolerating p.o. without difficulties. Patient given Toradol and first dose of Keflex. No other labs or imaging warranted at this time based on H&P. Patient had a CT scan of the abdomen and pelvis, transvaginal ultrasound, pelvic exam with testing, and other blood work performed over the last 2 visits for her pelvic pain previously. Patient is aware that her condition can change from initial presentation and she needs to monitor symptoms closely and seek medical attention with any acute changes. I will be sending her home with prescription for Keflex. Patient has no abdominal tenderness to [place] point and [place] was negative. Low suspicion/risk for acute appendicitis, bowel obstruction, acute cholecystitis, acute cholangitis, perforated diverticulitis, incarcerated hernia, pancreatitis, perforated ulcer, peritonitis, sepsis, pelvic inflammatory disease, ectopic , tubo-ovarian abscess, torsion, or other systemic emergent condition at this time. Patient is aware that her condition can change from initial presentation and she needs to monitor symptoms closely and seek medical attention if any acute changes. Rx for keflex and flexeril. Conservative measures otherwise for symptoms. Recheck with OBGYN in 2-3 days. Recheck with your PCM in 2-3 days. Return to the ED with any worsening/concerning symptoms otherwise as reviewed in discharge. Patient is in agreement. - Vital Signs Vital signs: Temp Pulse Resp BP Pulse Ox 98.6 F 100 18 129/92 H 97 04/27/18 16:07 04/27/18 16:07 04/27/18 16:07 04/27/18 16:07 04/27/18 16:07 - Laboratory Result Diagrams: 04/27/18 16:45 04/27/18 16:45 Laboratory results interpreted by me: 04/27/18 04/27/18 04/27/18 16:45 16:45 16:45 RDW 14.2 H Eosinophils % 6.6 H Carbon Dioxide 21 L AST 48 H ALT 71 H Urine Urobilinogen 2.0 H Ur Leukocyte Esterase LARGE H Discharge - Discharge Clinical Impression: Acute UTI (urinary tract infection) Condition: Stable Disposition: HOME, SELF-CARE Instructions: Cephalexin ([facility]), Urinary Tract Infection ([facility]), Abdominal Pain ( [facility]) Additional Instructions: Push fluids (i.e. water, cranberry juice) Proper hygenic technique Keep the skin clean Tylenol/ibuprofen as needed May use over the counter AZO for burning with urination x2-3 days Take medications as directed F/u with your PCM/OBGYN in 2-3 days for a recheck Consider consult with a Urologist for ongoing/worsening symptoms. Return to the ED with any worsening symptoms and/or development of fever, headache, chest pain, palpitations, syncope, shortness of breath, trouble breathing, abdominal pain, n/v/d, blood in stool/urine, loss of control of bowel /bladder, urinary retention, or other worsening symptoms that are concerning to you. Prescriptions: Cephalexin Monohydrate [Keflex 500 mg Capsule] 500 mg PO TID #21 capsule Cyclobenzaprine HCl [Flexeril 10 mg Tablet] 10 mg PO TIDP PRN #15 tab PRN Reason: Forms: Elevated Blood Pressure Referrals: JUDIT CONN PA-C [Primary Care Provider] - Follow up as needed FENG MELO DO [NO LOCAL MD] - Follow up as needed
[2018-04-27] MEDS ORDERED: CEPHALEXIN 500 MG CAPSULE PO ONE (18:49)
[2018-04-27] MEDS ORDERED: KETOROLAC TROMETHAMINE INJ/PF 30 MG/1 ML SDV IM ONE (18:50)
[2018-04-27 19:54] VITALS: BP 111/59
== END 2018-04-27 19:56 | disposition home or self-care (01) ==
LOC: ER 16:00
DX: N39.0 Urinary tract infection, site not specified (principal)
CPT/HCPCS: 99283; 96372; 36415; 87086; 84702; 85025; 80053; 81001; S0119; J1885